=== PATIENT | female | born 1945 | race Caucasian/White ===

== ENCOUNTER → 2017-10-08 09:57 | Outpatient (CLI) | payer MEDICARE, SELFPAY ==
[2017-10-08 12:09] LABS: PTHIN 145.7 pg/mL (18.4-80.1); Vitamin D,25 Hydroxy 29.9 ng/mL (29.95-100.01)
[2017-10-08 12:18] LABS: ALB/GLOB Ratio 1.1 RATIO (0.9-2.4); AST(SGOT) 17 U/L (15-37); Alanine Aminotransfer ALT/SGPT 30 U/L (13-56); Albumin, Serum 3.6 g/dL (3.2-5.0); Alkaline Phosphatase 75 U/L (45-117); Anion Gap 9 (5-15); BUN 15 mg/dL (7-18); BUN/Creat Ratio 19.2 RATIO (10-20); Calcium,Total 9.3 mg/dL (8.5-10.1); Chloride 107 mmol/L (98-107); Creatinine, Serum 0.78 mg/dL (0.55-1.02); EST Glomerular Filtration Rate 77 mL/min (>60); Est Glom Filt Rate - Afr Amer 93 mL/min (>60); Globulin 3.4 g/dL (2.2-4.2); Glucose 106 mg/dL (74-106); Potassium 3.3 mmol/L (3.5-5.1); Sodium Level 143 mmol/L (136-145); Thyroid Stim Hormone (TSH) 0.69 uIU/mL (0.358-3.74)
== END ==
PROVIDERS: Family Provider Internal Medicine; PCP Internal Medicine; Visit Provider Internal Medicine Endocrinology, Diabetes & Metabolism
DX: E21.0 Primary hyperparathyroidism (principal); E04.9 Nontoxic goiter, unspecified; E55.9 Vitamin D deficiency, unspecified
CPT/HCPCS: 36415; 80053; 82306; 83970; 84443

== ENCOUNTER → 2018-02-11 11:12 | Outpatient (CLI) | payer MEDICARE, SELFPAY ==
--- NOTE | 2018-02-11 11:16 | CT_ITS ---
STUDY: CT BRAIN WITHOUT CONTRAST REASON FOR EXAM: Female, 72 years old. Headache RADIATION DOSAGE (If Supplied By Facility): CTDIvol = ( 60.81 ) mGy, DLP = ( 1112.69 ) mGycm TECHNIQUE: Transaxial CT imaging of the brain was performed without administration of intravenous contrast material. Coronal and sagittal 2-D MPR Individualized dose optimization techniques were used for this CT. COMPARISON: CT head 12/08/2016. FINDINGS: Extracranial soft tissues including orbital contents exhibit no acute abnormality. Craniofacial osseous structures within the field of view exhibit no acute abnormality. Paranasal sinuses, mastoid air cells and middle ear cavities are clear. Mild symmetric expansion of lateral ventricles and extra axial spaces consistent with age-related atrophy. Minimal chronic low-density changes of the deep white matter consistent with chronic microvascular ischemic disease with a small sliding or prominent low density focus in the basal ganglia just anterior to the margin of the thalamus on the left, likely an old infarct. Normal pituitary, brainstem and cerebellum There is no acute intracranial bleed, mass or mass effect nor any specific evidence of acute territorial infarct. CT/Brain/Head without Contrast IMPRESSION: No acute intracranial process. Electronically Signed: David Bye, at 14:37 EDT Tel , Service support ,
--- NOTE | 2018-02-11 11:17 | RAD_ITS ---
STUDY: X-RAY - CERVICAL SPINE REASON FOR EXAM: Female, 72 years old. Neck pain following a fall. Worsening headaches. TECHNIQUE: 4 view(s) of the cervical spine were obtained. COMPARISON: None FINDINGS: Normal anterior atlantoaxial articulation. Normal odontoid process. Normal cervical lordosis. Marked degree of disc space narrowing and spondylosis at the C4-C5 level. Moderate degree of disc space narrowing at the C5-C6 and C6-C7 levels with spondylosis. Facet joint osteoarthritis. Normal visualized intervertebral neuroforamina. The soft tissue structures are unremarkable. RAD/Cerv Spine 2 or 3 Views IMPRESSION: Disc space narrowing with spondylosis as described. Electronically Signed: Kameron Hester MD at 15:10 EDT Tel [phone], Service support ,
== END ==
PROVIDERS: Family Provider Internal Medicine; PCP Internal Medicine; Visit Provider Internal Medicine
DX: M54.2 Cervicalgia (principal); R51 Headache
CPT/HCPCS: 70450; 72040

== ENCOUNTER → 2018-09-07 | Outpatient (CLI) | payer MEDICARE, SELFPAY ==
[2018-09-07 12:56] LABS: ALB/GLOB Ratio 1.1 RATIO (0.9-2.4); AST(SGOT) 18 U/L (15-37); Alanine Aminotransfer ALT/SGPT 26 U/L (13-56); Albumin, Serum 3.9 g/dL (3.2-5.0); Alkaline Phosphatase 68 U/L (45-117); Anion Gap 6 (5-15); BUN 17 mg/dL (7-18); BUN/Creat Ratio 18.8 RATIO (10-20); Calcium,Total 9.9 mg/dL (8.5-10.1); Chloride 104 mmol/L (98-107); EST Glomerular Filtration Rate 65 mL/min (>60); Est Glom Filt Rate - Afr Amer 78 mL/min (>60); Globulin 3.6 g/dL (2.2-4.2); Glucose 89 mg/dL (74-106); Magnesium 2.2 mg/dL (1.6-2.6); Protein, Total 7.5 g/dL (6.4-8.2); Sodium Level 139 mmol/L (136-145)
[2018-09-07 13:03] LABS: PTHIN 191.9 pg/mL (18.4-80.1); Vitamin D,25 Hydroxy 46.3 ng/mL (29.95-100.01)
== END | disposition home or self-care (01) ==
LOC: LAB 11:30
PROVIDERS: Family Provider Internal Medicine; PCP Internal Medicine; Referring Provider Internal Medicine Endocrinology, Diabetes & Metabolism; Visit Provider Internal Medicine Endocrinology, Diabetes & Metabolism
DX: E21.0 Primary hyperparathyroidism (principal); M81.0 Age-related osteoporosis without current pathological fracture; E55.9 Vitamin D deficiency, unspecified; E83.42 Hypomagnesemia
CPT/HCPCS: 36415; 80053; 82306; 83735; 83970

== ENCOUNTER → 2018-09-28 | Outpatient (CLI) | payer MEDICARE, SELFPAY ==
[2018-09-28 12:39] LABS: Anion Gap 5 (5-15); BUN 14 mg/dL (7-18); BUN/Creat Ratio 14.3 RATIO (10-20); Calcium,Total 10.4 mg/dL (8.5-10.1); Chloride 104 mmol/L (98-107); Creatinine, Serum 0.98 mg/dL (0.55-1.02); EST Glomerular Filtration Rate 59 mL/min (>60); Est Glom Filt Rate - Afr Amer 71 mL/min (>60); Glucose 113 mg/dL (74-106); Sodium Level 139 mmol/L (136-145)
== END | disposition home or self-care (01) ==
PROVIDERS: Family Provider Internal Medicine; PCP Internal Medicine; Referring Provider Internal Medicine Endocrinology, Diabetes & Metabolism; Visit Provider Internal Medicine Endocrinology, Diabetes & Metabolism
DX: M81.0 Age-related osteoporosis without current pathological fracture (principal)
CPT/HCPCS: 36415; 80048

== ENCOUNTER → 2018-11-18 | Outpatient (CLI) | payer MEDICARE, SELFPAY ==
[2018-11-18 11:43] LABS: AST(SGOT) 15 U/L (15-37); Alanine Aminotransfer ALT/SGPT 29 U/L (13-56); Albumin, Serum 3.3 g/dL (3.2-5.0); Alkaline Phosphatase 66 U/L (45-117); Anion Gap 7 (5-15); BUN 15 mg/dL (7-18); Calcium,Total 9.7 mg/dL (8.5-10.1); Chloride 106 mmol/L (98-107); EST Glomerular Filtration Rate 58 mL/min (>60); Est Glom Filt Rate - Afr Amer 70 mL/min (>60); Globulin 3.4 g/dL (2.2-4.2); Glucose 127 mg/dL (74-106); Protein, Total 6.7 g/dL (6.4-8.2); Sodium Level 141 mmol/L (136-145)
[2018-11-18 11:51] LABS: Vitamin D,25 Hydroxy 51.7 ng/mL (29.95-100.01)
[2018-11-18 11:55] LABS: PTHIN 193.8 pg/mL (18.4-80.1)
== END | disposition home or self-care (01) ==
LOC: LAB 10:51
PROVIDERS: Family Provider Internal Medicine; PCP Internal Medicine; Referring Provider Internal Medicine Endocrinology, Diabetes & Metabolism; Visit Provider Internal Medicine Endocrinology, Diabetes & Metabolism
DX: E21.0 Primary hyperparathyroidism (principal); E55.9 Vitamin D deficiency, unspecified
CPT/HCPCS: 36415; 80053; 82306; 83970

== ENCOUNTER → 2018-11-29 | Outpatient (CLI) | payer MEDICARE, SELFPAY ==
--- NOTE | 2018-11-29 16:06 | RAD_ITS ---
STUDY: X-RAY CHEST REASON FOR EXAM: Female, 73 years old. Cough TECHNIQUE: PA and lateral chest COMPARISON: CT chest 01/24/2014 FINDINGS: There is significant opacity and consolidation within the lingula best seen on the lateral view.. There is no demonstrated pleural abnormality. There is significant generalized osteopenia. Normal size heart. Normal mediastinum and markus. Normal visualized pulmonary arteries. Normal visualized aortic arch and descending thoracic aorta. Normal visualized thoracic spine. Normal visualized ribs, clavicles, and shoulders. There is no demonstrated abnormality of the visualized soft tissue structures of the upper abdomen. RAD/Chest PA and Lateral IMPRESSION: Significant opacity and consolidation within the lingula, pneumonia, follow-up until clear recommended if this does not clear CT chest follow-up would be recommended to exclude underlying postobstructive lesion Electronically Signed: Jorgito Blas, at 16:49 EDT Tel , Service support ,
== END | disposition home or self-care (01) ==
LOC: MTRAD 16:03
PROVIDERS: Family Provider Internal Medicine; PCP Internal Medicine; Referring Provider Nurse Practitioner; Visit Provider Nurse Practitioner
DX: R05 Cough (principal)
CPT/HCPCS: 71046

== ENCOUNTER → 2018-12-07 | Outpatient (CLI) | payer MEDICARE, SELFPAY ==
--- NOTE | 2018-12-07 15:28 | CT_ITS ---
STUDY: CT CHEST WITH CONTRAST REASON FOR EXAM: Female, 73 years old. Pneumonia and abnormal chest x-ray RADIATION DOSAGE (If Supplied By Facility): CTDIvol = ( 8.00 ) mGy, DLP = ( 285.62 ) mGycm TECHNIQUE: Transaxial imaging was performed following intravenous administration of 100ml IV Isovue 300. Individualized dose optimization techniques were used for this CT. COMPARISON 01/17/1714 CT, chest x-ray November 29, 2018 FINDINGS: Interval development of a 15 x 13 mm nodule in the upper mediastinum, likely arising from the left lower lobe of the thyroid gland, seen on image 21 of series 2. Terminal alveolar nodularity in the posterior right upper lobe and right lower lobe suggests bronchiolitis. Lingular atelectasis. Stable 4 mm nodule in the left lower lobe on image 73 of series 4, considered benign. There is no demonstrated pleural abnormality. Focal rounded alveolar disease in the left lower lobe measuring 14 x 12 mm on image 66 of series 4. This most likely represents focal pneumonia. Three-month follow-up chest CT is recommended to ensure resolution, however. Small pericardial effusion measuring 6 mm in depth. Normal mediastinum. Normal hilar regions. Normal enhanced pulmonary arteries. Normal aorta arch and descending thoracic aorta. There are multi-level degenerative changes of the thoracic spine. Subcentimeter hepatic cyst. Left-sided peripelvic renal cysts. Cholelithiasis. CT/Chest WITH Contrast IMPRESSION: Right upper and lower lobe bronchiolitis. Stable benign nodule in the left lower lobe. Focal rounded alveolar disease in the left lower lobe, likely representing focal pneumonia. However, three-month follow-up chest CT is recommended to ensure resolution. Interval development of a 15 x 13 mm nodule in the upper mediastinum, likely arising from the left lower lobe of the thyroid gland. Small pericardial effusion. Cholelithiasis. Electronically Signed: Mat Wagoner MD at 16:15 EDT Tel , Service support ,
== END | disposition home or self-care (01) ==
PROVIDERS: Family Provider Internal Medicine; PCP Internal Medicine; Referring Provider Internal Medicine; Visit Provider Internal Medicine
DX: R93.89 Abnormal findings on diagnostic imaging of other specified body structures (principal)
CPT/HCPCS: 71260; Q9967

== ENCOUNTER → 2018-12-23 | Outpatient (CLI) | payer MEDICARE, SELFPAY | END | disposition home or self-care (01) | LOC: LAB 10:11 → LABSPEC 10:15 | PROVIDERS: Family Provider Internal Medicine; PCP Internal Medicine; Referring Provider Internal Medicine Pulmonary Disease; Visit Provider Internal Medicine Pulmonary Disease | DX: J18.9 Pneumonia, unspecified organism (principal); J45.909 Unspecified asthma, uncomplicated | CPT/HCPCS: 87015; 87116; 87206 ==

== ENCOUNTER → 2019-01-09 14:10 | Outpatient (CLI) | payer MEDICARE, SELFPAY ==
[2019-01-09 16:11] LABS: Absolute Lymphocyte Count 1.68 X10^3/uL (0.83-4.51); Absolute Neutrophil Count 3.9 X10^3/uL (2.0-7.7); Basophil# 0.03 X10^3/uL; Basophil% 0.5 % (0-1); Eosinophil# 0.07 X10^3/uL; Eosinophils% 1.1 % (0-5); Hematocrit 36.6 % (37-47); Hemoglobin 11.7 g/dL (12.0-15.0); Lymphocyte # 1.68 X10^3/ul (4.0); Lymphocyte % 27.1 % (19-41); Mean Corpuscular Hgb 31.4 pg (27.0-32.0); Mean Corpuscular Volume 98.1 fL (81-99); Monocyte# 0.47 X10^3/uL; Monocyte% 7.6 % (0-10); NRBC Flagged by Analyzer 0 % (0-5); Neutrophil # 3.93 X10^3/uL (2.7-7.7); Neutrophil % 63.4 % (47-70); Platelet Count 222 K/mm3 (150-450); RBC Distribution Width CV 13.9 % (11.6-14.6); RBC Distribution Width SD 50.2 fl (35.1-43.9); Red Blood Count 3.73 M/mm3 (4.2-5.4); White Blood Count 6.2 K/mm3 (4.4-11.0)
[2019-01-09 16:32] LABS: Rheumatoid Factor < 10.0 IU/mL (<15)
[2019-01-11 15:03] LABS: ANTINUCLEAR ANTIBODIES DIRECT Positive (Negative)
[2019-01-13 12:44] LABS: Angiotensin Convert Enzyme 51; URINE HISTOPLASMA ANTIGEN <0.5
== END ==
PROVIDERS: Family Provider Internal Medicine; PCP Internal Medicine; Referring Provider Internal Medicine Pulmonary Disease; Visit Provider Internal Medicine Pulmonary Disease
DX: J18.9 Pneumonia, unspecified organism (principal); J45.909 Unspecified asthma, uncomplicated
CPT/HCPCS: 36415; 82164; 85025; 86038; 86431; 87385

== ENCOUNTER → 2019-01-18 | Outpatient (CLI) | payer MEDICARE, SELFPAY ==
--- NOTE | 2019-01-18 10:38 | RAD_ITS ---
STUDY: X-RAY CHEST REASON FOR EXAM: Female, 73 years old. Pneumonia, shortness of breath TECHNIQUE: PA and lateral views of the chest. COMPARISON: 11/29/2018 FINDINGS: The lungs are clear and expanded. There is no demonstrated pleural abnormality. Normal size heart. Normal mediastinum and markus. Normal visualized pulmonary arteries. Normal visualized aortic arch and descending thoracic aorta. Normal visualized thoracic spine. Normal visualized ribs, clavicles, and shoulders. There is no demonstrated abnormality of the visualized soft tissue structures of the upper abdomen. RAD/Chest PA and Lateral IMPRESSION: Normal x-ray examination of the chest. Electronically Signed: Charly Samson, at 12:13 EDT Tel , Service support ,
[2019-01-18 11:32] LABS: Erythrocyte Sedimentation Rate 1 mm/hr (0-30)
[2019-01-20 13:31] LABS: Anti-dsDNA Ab 1 IU/mL (0-9)
== END | disposition home or self-care (01) ==
PROVIDERS: Family Provider Internal Medicine; PCP Internal Medicine; Referring Provider Internal Medicine Pulmonary Disease; Visit Provider Internal Medicine Pulmonary Disease
DX: J18.9 Pneumonia, unspecified organism (principal); J45.909 Unspecified asthma, uncomplicated; G47.10 Hypersomnia, unspecified
CPT/HCPCS: 36415; 71046; 85652; 86225

== ENCOUNTER → 2019-01-25 | Outpatient (CLI) | payer MEDICARE, SELFPAY ==
[2019-01-25 12:05] LABS: Anion Gap 3 (5-15); BUN 17 mg/dL (7-18); BUN/Creat Ratio 18.1 RATIO (10-20); Calcium,Total 10.1 mg/dL (8.5-10.1); Chloride 109 mmol/L (98-107); Creatinine, Serum 0.94 mg/dL (0.55-1.02); EST Glomerular Filtration Rate 62 mL/min (>60); Est Glom Filt Rate - Afr Amer 75 mL/min (>60); Glucose 102 mg/dL (74-106); Potassium 3.9 mmol/L (3.5-5.1); Sodium Level 141 mmol/L (136-145)
[2019-01-25 12:15] LABS: PTHIN 167.8 pg/mL (18.4-80.1); Vitamin D,25 Hydroxy 49.4 ng/mL (29.95-100.01)
== END | disposition home or self-care (01) ==
LOC: LAB 11:12
PROVIDERS: Family Provider Internal Medicine; PCP Internal Medicine; Referring Provider Internal Medicine Endocrinology, Diabetes & Metabolism; Visit Provider Internal Medicine Endocrinology, Diabetes & Metabolism
DX: E55.9 Vitamin D deficiency, unspecified (principal); E21.0 Primary hyperparathyroidism
CPT/HCPCS: 36415; 80048; 82306; 83970

== ENCOUNTER → 2019-04-12 | Outpatient (CLI) | payer MEDICARE, SELFPAY ==
--- NOTE | 2019-04-12 14:55 | RAD_ITS ---
STUDY: X-RAY - LUMBAR SPINE REASON FOR EXAM: Female, 74 years old. Right-sided, low back pain. TECHNIQUE: 3 view(s) of the lumbar spine were obtained. COMPARISON: None FINDINGS: Normal lumbar lordosis. There is minimal scoliosis, convexity to the left. There is a normal alignment of the vertebrae. There is diffuse demineralization with multi-level endplate spondylosis. There is mild, multi-level degenerative disc disease with multi-level disc space narrowing. There is no demonstrated fracture. There is atherosclerotic calcification of the abdominal aorta without a demonstrated aneurysm. RAD/Lumbar Spine 2 or 3 Views IMPRESSION: Diffuse osteopenia along with mild multilevel spondylosis/degenerative disease. No spondylolisthesis or acute fracture. Electronically Signed: Marielle Willis MD at 1:42 EST , Service support ,
== END | disposition home or self-care (01) ==
LOC: HPRAD 14:52
PROVIDERS: Family Provider Internal Medicine; PCP Internal Medicine; Referring Provider Internal Medicine; Visit Provider Internal Medicine
DX: M54.5 Low back pain (principal)
CPT/HCPCS: 72100

== ENCOUNTER → 2019-11-02 12:06 | Outpatient (CLI) | payer MEDICARE, SELFPAY ==
--- NOTE | 2019-11-02 12:12 | BD_ITS ---
STUDY: DUAL ENERGY X-RAY ABSORPTIOMETRY / DXA REASON FOR EXAM: Female, 74 years old. [employer]- EARLY AT 37 YRS OLD -- HX OF HRT -- HX OF SMOKING -- TAKES SYNTHROID -- TAKES CALCIUM AND VITAMIN D -- HX OF TAKING PROLIA -- DOES LITTLE EXERCISE -- HX OF ANKLE FX AND WRIST FX -- KAITLIN OF 2 INCHES TECHNIQUE: Bone Mineral Density (BMD) measurements of lumbar spine and bilateral hips were obtained. COMPARISON: Comparison is made with prior examination dated May 21, 2016. FINDINGS: Lumbar Spine (L1-L4): g/cm2 (0.902) / T-score (-2.5) / Z-score (-0.7) Findings are suggestive of osteoporosis with a high fracture risk. Left Femur Total: g/cm2 (0.758) / T-score (-2.0) / Z-score (-0.2) Left Femoral Neck: g/cm2 (0.766) / T-score (-2.0) / Z-score (0.0) Right Femur Total: g/cm2 (0.776) / T-score (-1.8) / Z-score (-0.1) Right Femoral Neck: g/cm2 (0.743) / T-score (-2.1) / Z-score (-0.2) The T-Scores on the most recent prior examination were: Lumbar Spine (L1-L4): There has been worsening of bone density since the previous examination. Left Femur Total: which represents a worsening of 7.3%. Right Femur Total: which represents a worsening of 6.6%. BD/Dexa Bone Density Study IMPRESSION: The patient is considered osteoporotic as outlined below according to World [employer] Organization (WHO) criteria with a high fracture risk. There has been worsening of bone density since the previous examination. Reference Information: The T-score is the number of standard deviations above or below the standard which is normal for young adults at their peak bone mineral density. The World Health Organization (WHO) interprets the T-scores as follows: Above -1 Normal bone density Between -1 and -2.5 Osteopenia Equal to / or below -2.5 Osteoporosis As a practical clinical guideline, osteopenia may be graded as follows: Mild -1 through -1.5 Moderate -1.6 through -2.0 Severe -2.1 through -2.4 The Z-score is the number of standard deviations above or below age-matched controls. A Z-score of less than -1.5 would be considered abnormal. References: 1. NIH Osteoporosis and Related Bone Diseases http://www.osteo.org 2. International Society for Clinical Densitometry http://www.iscd.org 3. National Osteoporosis Foundation http://www.nof.org Electronically Signed: Kameron Hester, at 14:31 EDT , Service support ,
== END ==
PROVIDERS: PCP Internal Medicine; Referring Provider Internal Medicine; Visit Provider Internal Medicine
DX: Z78.0 Asymptomatic menopausal state (principal)
CPT/HCPCS: 77080

== ENCOUNTER → 2020-07-02 11:29 | Outpatient (CLI) | payer MEDICARE, SELFPAY ==
[2020-07-02 13:17] LABS: PTHIN 170.7 pg/mL (18.4-80.1)
[2020-07-02 13:20] LABS: Vitamin D,25 Hydroxy 40.6 ng/mL
[2020-07-02 13:28] LABS: ALB/GLOB Ratio 1.1 RATIO (0.9-2.4); AST(SGOT) 19 U/L (15-37); Alanine Aminotransfer ALT/SGPT 34 U/L (13-56); Albumin, Serum 3.6 g/dL (3.2-5.0); Alkaline Phosphatase 47 U/L (45-117); Anion Gap 6 (5-15); BUN 17 mg/dL (7-18); BUN/Creat Ratio 18.7 RATIO (10-20); Calcium,Total 9.7 mg/dL (8.5-10.1); Chloride 107 mmol/L (98-107); Creatinine, Serum 0.91 mg/dL (0.55-1.02); EST Glomerular Filtration Rate 64 mL/min (>60); Est Glom Filt Rate - Afr Amer 77 mL/min (>60); Globulin 3.3 g/dL (2.2-4.2); Glucose 97 mg/dL (74-106); Magnesium 2.1 mg/dL (1.6-2.6); Protein, Total 6.9 g/dL (6.4-8.2); Sodium Level 140 mmol/L (136-145)
== END ==
PROVIDERS: PCP Internal Medicine; Referring Provider Internal Medicine Endocrinology, Diabetes & Metabolism; Visit Provider Internal Medicine Endocrinology, Diabetes & Metabolism
DX: E21.0 Primary hyperparathyroidism (principal); E55.9 Vitamin D deficiency, unspecified
CPT/HCPCS: 36415; 80053; 82306; 83735; 83970

== ENCOUNTER 2020-08-06 03:14 | Outpatient (RCR) | payer MEDICARE, SELFPAY ==
[2020-08-06] MEDS: COVID-19 VACC, MRNA(PFIZER)/PF 30 MCG/0.3 ML SYRINGE IM (18:31)
[2020-08-27] MEDS: COVID-19 VACC, MRNA(PFIZER)/PF 30 MCG/0.3 ML SYRINGE IM (18:00)
== END 2020-11-05 23:59 ==
LOC: IMMUN 03:14
PROVIDERS: PCP Internal Medicine; Visit Provider Family Medicine
DX: Z23 Encounter for immunization (principal)
CPT/HCPCS: 0001A; 0002A; 91300

== ENCOUNTER 2021-06-09 15:17 | Emergency (ER) | payer MEDICARE, SELFPAY ==
[2021-06-09 15:17] VITALS: BP 123/60; PULSE 75; RESP 18; TEMP 35.9; O2SAT 95; BMI 24.5
--- NOTE | 2021-06-09 16:45 | EKG12_ITS ---
Test Reason : SOB Blood Pressure : / mmHG Vent. Rate : 066 BPM Atrial Rate : 066 BPM P-R Int : 172 ms QRS Dur : 072 ms QT Int : 398 ms P-R-T Axes : 049 056 034 degrees QTc Int : 417 ms Normal sinus rhythm with sinus arrhythmia Normal ECG Confirmed by STEFANI TOVAR, JAZZY ([id number]), commissioning editor JONATAN DIALLO ([id number]) on 06/10/2021 2:22:21 PM Referred By: PEGGY/CHUCK Confirmed By:JAZZY KO MD
--- NOTE | 2021-06-09 16:47 | ED.VIS.DYS ---
HPI History of Present Illness Chief Complaint: Shortness of Breath Narrative Narrative: Patient presents from urgent care with reported low pulse ox. She states that she has been short of breath, fatigued, and lost her sense of taste and smell on 25 May is when her symptoms may have started. She feels short of breath and has an occasional cough. She is very fatigued. She states she was tested negative on 26 May. Her symptoms have been ongoing for over 2 weeks. She has past medical history of COPD. She states she went to urgent care today and her pulse ox read 89%. She has not been a smoker in over 27 years. She states that her friend with whom she lives is getting over the flu. She has COVID-19 concerns although she has been fully immunized with booster. She presents because of the reported hypoxia and shortness of breath with fatigue. She denies having fever or sore throat. [facility] Medical History (Updated 06/09/21 @ 21:24 by Chip Arreaga MD) COPD (chronic obstructive pulmonary disease) HTN (hypertension) Home Medications atorvastatin 20 mg PO QHS 12/08/16 [History Last Taken Unknown] budesonide-formoterol [Symbicort] 2 puff INHALATION BID 12/08/16 [History Last Taken Unknown] levothyroxine 75 mcg PO DAILY 12/08/16 [History Last Taken Unknown] sertraline 50 mg PO DAILY 12/08/16 [History Last Taken Unknown] albuterol sulfate 2 puff INHALATION Q4H PRN PRN 06/09/21 [History Last Taken Unknown] alendronate 70 mg PO QWEEK 06/09/21 [History Last Taken Unknown] apixaban [Eliquis DVT-PE Treat 30D Start] 5 mg PO BID #74 tab 06/09/21 [Rx Last Taken Unknown] azithromycin 250 mg BID 06/09/21 [History Last Taken Unknown] hydrochlorothiazide 25 mg DAILY 06/09/21 [History Last Taken Unknown] losartan 50 mg DAILY 06/09/21 [History Last Taken Unknown] Allergy/AdvReac Type Severity Reaction Status Date / Time codeine Allergy Angioedema Verified 06/09/21 15:20 Penicillins [PCN] Allergy Rash Verified 06/09/21 15:20 Sulfa (Sulfonamide AdvReac Unknown Verified 06/09/21 15:20 Antibiotics) Social History Smoking Status: Former smoker ROS ROS ED ROS Narrative Constitutional: No fever, no chills. Positive malaise and fatigue. HEENT: No sore throat. No neck pain. No loss of vision. No rhinorrhea. Reported loss of taste and smell. Cardiovascular: No chest pain. No palpitations. No pedal edema. Respiratory: Positive cough, positive shortness of breath. Abdominal: No abdominal pain. No nausea. No vomiting. Genitourinary: No dysuria. No hematuria. Musculoskeletal: No myalgias. No arthralgias. Neurologic: No headaches. No dizziness. No lightheadedness. Generalized weakness. Skin: No rash. No change in color. Psychiatric: No depression. No anxiety. EXAM Physical Exam Narrative Exam Narrative: Afebrile. Vital signs noted. HEENT: Normocephalic. Atraumatic. PERRL, EOMI. Neck soft and supple. No point tenderness or step off. Cardiovascular: Regular rate and rhythm. No murmurs, rubs, or gallops appreciated. Respiratory: No tachypnea. Lungs clear to auscultation bilaterally except occasional rhonchi heard in bilateral bases. Gastrointestinal: Abdomen soft, nontender, with normoactive bowel sounds. No rebound or guarding. Neurological: Awake. Alert. Nonfocal, nonlateralizing. Skin: No rash. Normal color. No pallor. Musculoskeletal: No pedal edema. Full range of motion extremities. Const Vital Signs: 06/09/21 15:17 06/09/21 16:56 06/09/21 16:59 Temperature 96.7 F L 97.2 F L Temperature Source Temporal Temporal Pulse Rate 75 69 Respiratory Rate 18 18 Respiratory Effort Normal Short of Breath Respiratory Depth Normal Respiratory Pattern Normal Blood Pressure 123/60 H 123/60 H Blood Pressure Mean 81 81 Pulse Ox 95 97 Oxygen Delivery Method Room Air Room Air Room Air 06/09/21 17:00 06/09/21 18:00 Temperature 97.2 F L 97.7 F L Temperature Source Temporal Temporal Pulse Rate 72 70 Respiratory Rate 18 19 H Respiratory Effort Respiratory Depth Respiratory Pattern Blood Pressure 125/54 H 122/57 H Blood Pressure Mean 77 78 Pulse Ox 93 96 Oxygen Delivery Method Room Air Room Air MDM MDM MDM Narrative Medical decision making narrative: Patient's pulse ox is 95% on room air here in the emergency department. Comprehensive work-up was pursued. White count normal at 7.7, hemoglobin stable 11.2, platelet count normal at 228. Electrolyte panel is grossly unremarkable except creatinine 1.06. Troponin is negative at 7. EKG demonstrates normal sinus rhythm at 66 bpm with a sinus arrhythmia but no acute ST changes. Her pulse ox remains nonhypoxic. I did obtain a CTA of the chest which shows bilateral pulmonary emboli. Her COVID test is negative, but it is the rapid. She has had symptoms since 25 May. Regardless, she was evaluated by the hospitalist, Dr. Das. It was not felt that she required admission or oxygen at this time. Instead, she will be placed on Eliquis 5 mg twice daily. I did write her prescription for the next month as a starter pack, and she will follow-up with Dr. Joseph. She is to call the office tomorrow. I feel she be discharged safely home with follow-up. Return instructions were reviewed. She was told of the risk of intracranial hemorrhage and GI bleeding with the use of Eliquis. I do feel that the benefit outweighs the risk of these things happening to treat her bilateral pulmonary emboli. Once again, she is not hypoxic here in the emergency department. Disposition is discharged home in stable condition. Lab Data Attestation: I reviewed the patient's lab results. Labs: Laboratory Results - last 24 hr 06/09/21 06/09/21 16:50 16:50 WBC 7.7 RBC 3.54 L Hgb 11.2 L Hct 34.4 L MCV 97.2 MCH 31.6 MCHC 32.6 RDW Std Deviation 44.2 H RDW Coeff of Jeanna 12.5 Plt Count 228 MPV 9.5 Immature Gran % (Auto) 0.400 Neut % (Auto) 72.3 H Lymph % (Auto) 19.2 [place] % (Auto) 6.8 Eos % (Auto) 0.8 Baso % (Auto) 0.5 Absolute Neuts (auto) 5.6 Absolute Lymphs (auto) 1.48 Nucleated RBC % 0 Sodium 144 Potassium 3.5 Chloride 105 Carbon Dioxide 30.0 Anion Gap 9 BUN 17 Creatinine 1.06 H Estim Creat Clear Calc 41.61 Est GFR (MDRD) Af Amer 65 Est GFR (MDRD) Non-Af 53 L BUN/Creatinine Ratio 16.0 Glucose 119 H Calcium 11.0 H Troponin I High Sens 7 Radiography Diagnostic Testing: Clinical Impression(s) from Imaging Studies Chest X-Ray 06/09/21 17:40 IMPRESSION: Degenerative changes, as described above. No demonstrated acute cardiopulmonary process. Electronically Signed: Bautista Tate DO at 17:58 EST Tel [phone], Service support , Chest CTA 06/09/21 19:18 IMPRESSION: 1. Diffuse bilateral nonobstructive pulmonary emboli. 2. No aortic dissection or aneurysm. 3. No acute pulmonary disease. 4. Parapelvic cyst versus dilated collecting system of the bilateral kidneys. N.B. : The above Results were Read Back by Bautista Tate DO to Chip Arreaga MD, and understanding confirmed on 06/09/2021 20:04:36 (ET). Electronically Signed: Bautista Tate DO at 20:05 EST Tel [phone], Service support , ADDENDUM: 06/09/212011 IMPRESSION: 1. Diffuse bilateral nonobstructive pulmonary emboli. 2. No aortic dissection or aneurysm. 3. No acute pulmonary disease. 4. Parapelvic cyst versus dilated collecting system of the bilateral kidneys. N.B. : The above Results were Read Back by Bautista Tate DO to Chip Arreaga MD, and understanding confirmed on 06/09/2021 20:04:36 (ET). Electronically Signed: Bautista Tate DO at 20:05 EST Tel [phone], Service support , Discharge Plan Triage Chief Complaint: Shortness of Breath ED Provider: Chip Arreaga Dx/Rx/DC Orders Clinical Impression: Bilateral pulmonary embolism Instructions: Embolism Pulmonary Dc Prescriptions: New Eliquis DVT-PE Treat 30D Start 5 mg (74 tabs) tablets,dose pack 5 mg PO BID Qty: 74 RF: 0 No Action atorvastatin 20 MG tablet 20 mg PO QHS RF: 0 levothyroxine 75 MCG tablet 75 mcg PO DAILY RF: 0 sertraline 50 MG tablet 50 mg PO DAILY RF: 0 budesonide-formoterol [Symbicort] 1 INHALER inhaler 2 puff inhalation BID RF: 0 losartan 50 mg tablet 50 mg DAILY RF: 0 azithromycin 250 mg tablet 250 mg BID RF: 0 alendronate 70 mg tablet 70 mg PO QWEEK RF: 0 hydrochlorothiazide 25 mg tablet 25 mg DAILY RF: 0 albuterol sulfate 90 mcg/actuation HFA aerosol inhaler 2 puff INHALATION Q4H PRN PRN (Reason: Shortness Of Breath) RF: 0 Primary Care Provider: Jessica Lew Referrals: Jessica Lew DO [Primary Care Provider] - 06/10/21 Disposition Disposition: Home, Self Care
[2021-06-09 16:56] VITALS: BP 123/60; PULSE 69; RESP 18; TEMP 36.2; O2SAT 97
[2021-06-09 16:59] VITALS: O2SAT 97
[2021-06-09 17:00] VITALS: BP 125/54; PULSE 72; PULSE 78; RESP 18; TEMP 36.2; O2SAT 93
[2021-06-09] MEDS: Ipratropium/Albuterol Sulfate 3 ML AMPUL.NEB INHALATION (17:00)
[2021-06-09 17:06] LABS: Absolute Lymphocyte Count 1.48 X10^3/uL (0.83-4.51); Absolute Neutrophil Count 5.6 X10^3/uL (2.0-7.7); Basophil# 0.04 X10^3/uL; Basophil% 0.5 % (0-1); Eosinophil# 0.06 X10^3/uL; Eosinophils% 0.8 % (0-5); Hematocrit 34.4 % (37-47); Hemoglobin 11.2 g/dL (12.0-15.0); Lymphocyte # 1.48 X10^3/ul (0.83-4.51); Lymphocyte % 19.2 % (19-41); Mean Corp Hgb Conc 32.6 g/dL (32-36); Mean Corpuscular Hgb 31.6 pg (27.0-32.0); Mean Corpuscular Volume 97.2 fL (81-99); Mean Platelet Vol. 9.5 fl (6.2-12.0); Monocyte# 0.52 X10^3/uL; Monocyte% 6.8 % (0-10); NRBC Flagged by Analyzer 0 % (0-5); Neutrophil # 5.56 X10^3/uL (2.7-7.7); Neutrophil % 72.3 % (47-70); Platelet Count 228 K/mm3 (150-450); RBC Distribution Width CV 12.5 % (11.6-14.6); RBC Distribution Width SD 44.2 fl (35.1-43.9); Red Blood Count 3.54 M/mm3 (4.2-5.4); White Blood Count 7.7 K/mm3 (4.4-11.0)
[2021-06-09 17:31] LABS: Anion Gap 9 (5-15); BUN 17 mg/dL (7-18); Chloride 105 mmol/L (98-107); Creatinine, Serum 1.06 mg/dL (0.55-1.02); EST Glomerular Filtration Rate 53 mL/min (>60); Est Glom Filt Rate - Afr Amer 65 mL/min (>60); Estimated Creatinine Clearance 41.61 ml/min; Glucose 119 mg/dL (74-106); Potassium 3.5 mmol/L (3.5-5.1); Sodium Level 144 mmol/L (136-145); Troponin-I HS 7 pg/mL (3.0-54.0)
--- NOTE | 2021-06-09 17:40 | RAD_ITS ---
STUDY: X-RAY CHEST REASON FOR EXAM: Female, 76 years old. Shortness of breath. Low pulse oximetry symptoms began on May 22. TECHNIQUE: Single AP portable view of the chest. COMPARISON: 01/18/2019. FINDINGS: There is a decreased inspiratory effort when compared to prior study. There is no new mass or infiltrate. There is no demonstrated pleural abnormality. Normal size heart. Normal mediastinum and markus. Normal visualized pulmonary arteries. Normal visualized aortic arch and descending thoracic aorta. There are diffuse degenerative changes of the visualized thoracic spine. There is degenerative osteoarthritis of the bilateral shoulders. There is no demonstrated abnormality of the visualized soft tissue structures of the upper abdomen. RAD/Chest 1 View (Portable) IMPRESSION: Degenerative changes, as described above. No demonstrated acute cardiopulmonary process. Electronically Signed: Bautista Tate DO at 17:58 EST Tel [phone], Service support ,
[2021-06-09 18:00] VITALS: BP 122/57; PULSE 70; RESP 19; TEMP 36.5; O2SAT 96
--- NOTE | 2021-06-09 19:18 | CT_ITS ---
STUDY: CTA CHEST REASON FOR EXAM: Female, 76 years old. Shortness of breath. Fatigue. Low oxygen saturation. Cough. RADIATION DOSAGE (If Supplied By Facility): CTDIvol = ( 9.07 ) mGy, DLP = ( 305.98 ) mGycm TECHNIQUE: The examination was performed with the intravenous administration of IV 100mL Isovue-370. Post-processing of the angiographic images was performed, with multiplanar reformation and 3D reconstruction. Individualized dose optimization techniques were used for this CT. COMPARISON: Chest, 06/09/2021. FINDINGS: Normal enhancement of the main pulmonary artery and right and left pulmonary arteries. There is nonocclusive thrombus in peripheral pulmonary arteries to the bilateral upper lobes and right middle lobe and bilateral lower lobe most marked on the left. Normal thoracic aorta and visualized great vessels. There is no demonstrated aortic dissection. Normal heart and pericardium. Normal mediastinum. Normal hilar regions. Normal visualized trachea and bronchi. The lungs are well expanded. Normal pulmonary parenchyma. Normal pleura. Normal chest wall structures. There are degenerative changes of thoracic spine. Parapelvic cysts versus dilated bilateral renal collecting systems. CT/CTA Chest W/WO Contrast IMPRESSION: 1. Diffuse bilateral nonobstructive pulmonary emboli. 2. No aortic dissection or aneurysm. 3. No acute pulmonary disease. 4. Parapelvic cyst versus dilated collecting system of the bilateral kidneys. N.B. : The above Results were Read Back by Bautista Tate DO to Chip Arreaga MD, and understanding confirmed on 06/09/2021 20:04:36 (ET). Electronically Signed: Bautista Tate DO at 20:05 EST Tel [phone], Service support ,
[2021-06-09 21:48] VITALS: BP 145/73; PULSE 77; RESP 20; O2SAT 95
[2021-06-09] MEDS: APIXABAN 5 MG TABLET PO (21:48)
== END 2021-06-09 21:54 | disposition home or self-care (01) ==
PROVIDERS: Emergency Provider Emergency Medicine; PCP Internal Medicine; Visit Provider Emergency Medicine
DX: I26.99 Other pulmonary embolism without acute cor pulmonale (principal); J44.9 Chronic obstructive pulmonary disease, unspecified; Z20.822 Contact with and (suspected) exposure to COVID-19; I10 Essential (primary) hypertension; Z87.891 Personal history of nicotine dependence; Z79.899 Other long term (current) drug therapy
CPT/HCPCS: 71045; 71275; 80048; 84484; 85025; 87426; 93005; 94640; 99284; Q9967; A4216

== ENCOUNTER 2021-07-01 13:58 | Outpatient (CLI) | payer MEDICARE, SELFPAY ==
--- NOTE | 2021-07-01 14:00 | VDLE_ITS ---
Reason For Study: edema RIGHT LEFT GSV is normal. GSV is normal. CFV is compressible, spontaneous, phasic, CFV is compressible, spontaneous, phasic, competent and demonstrates normal competent, and demonstrates normal augmentation. augmentation. FV is compressible, spontaneous, phasic, FV is compressible, spontaneous, phasic, competent and demonstrates normal competent and demonstrates normal augmentation. augmentation. POP V is compressible, spontaneous, phasic, POP V is compressible, spontaneous, phasic, competent and demonstrates normal competent and demonstrates normal augmentation. augmentation. T/P Trunk is compressible. T/P Trunk is compressible. PTV is compressible. PTV is compressible. RT PerV is compressible. LT PerV is compressible. Procedure This is a venous duplex using B-mode, color flow and spectral Doppler. Exam performed in department. The exam was diagnostic. A preliminary report was called and/or faxed to Dr. Ang. VL/Venous Duplex US - Terrence Extrem Interpretation Summary Deep veins of the lower extremities are bilaterally patent and compressible seg mentally. There is no evidence of deep vein thrombosis on either side. Valvular competence appears in tact within the proximal deep venous systems bilaterally. The great saphenous veins appear bila terally patent and compressible segmentally. Ordering Physician: Jorgito Ang Performed By: Albert Hopkins, RVT
== END 2021-07-01 23:59 | disposition short-term general hospital (02) ==
PROVIDERS: PCP Internal Medicine; Referring Provider Internal Medicine Pulmonary Disease; Visit Provider Internal Medicine Pulmonary Disease
DX: R60.0 Localized edema (principal)
CPT/HCPCS: 93970

== ENCOUNTER → 2021-11-13 | Outpatient (CLI) | payer OTHER, SELFPAY ==
[2021-11-13 10:13] LABS: Absolute Lymphocyte Count 1.81 X10^3/uL (0.83-4.51); Absolute Neutrophil Count 3.8 X10^3/uL (2.0-7.7); Basophil# 0.04 X10^3/uL; Basophil% 0.6 % (0-1); Eosinophil# 0.07 X10^3/uL; Eosinophils% 1.1 % (0-5); Hematocrit 37.3 % (37-47); Hemoglobin 12.1 g/dL (12.0-15.0); Lymphocyte # 1.81 X10^3/ul (0.83-4.51); Lymphocyte % 28.9 % (19-41); Mean Corp Hgb Conc 32.4 g/dL (32-36); Mean Corpuscular Volume 98.7 fL (81-99); Mean Platelet Vol. 9.5 fl (6.2-12.0); NRBC Flagged by Analyzer 0 % (0-5); Neutrophil # 3.83 X10^3/uL (2.7-7.7); Neutrophil % 61.2 % (47-70); Platelet Count 226 K/mm3 (150-450); RBC Distribution Width CV 12.3 % (11.6-14.6); RBC Distribution Width SD 44.5 fl (35.1-43.9); Red Blood Count 3.78 M/mm3 (4.2-5.4); White Blood Count 6.3 K/mm3 (4.4-11.0)
[2021-11-13 10:35] LABS: Hemoglobin A1c 5.9 % (3.8-5.6)
[2021-11-13 10:37] LABS: Microalbumin,Random Urine 15.9 mg/L (NO RANGE EST.); Microalbumin:Creatinine Ratio 22.8 mg/g CRE (<30 mg/g CRE)
[2021-11-13 10:40] LABS: Vitamin B12 1083 pg/mL (211-911); Vitamin D,25 Hydroxy 67.5 ng/mL
[2021-11-13 10:49] LABS: ALB/GLOB Ratio 1.1 RATIO (0.9-2.4); AST(SGOT) 17 U/L (15-37); Alanine Aminotransfer ALT/SGPT 34 U/L (13-56); Albumin, Serum 3.6 g/dL (3.2-5.0); Alkaline Phosphatase 44 U/L (45-117); Anion Gap 3 (5-15); BUN 17 mg/dL (7-18); BUN/Creat Ratio 16.7 RATIO (10-20); Calcium,Total 10.4 mg/dL (8.5-10.1); Chloride 108 mmol/L (98-107); Cholesterol 173 mg/dL (200); Creatinine, Serum 1.02 mg/dL (0.55-1.02); EST Glomerular Filtration Rate 56 mL/min (>60); Est Glom Filt Rate - Afr Amer 68 mL/min (>60); Globulin 3.3 g/dL (2.2-4.2); Glucose 112 mg/dL (74-106); High Density Lipoprotein 86 mg/dL; Potassium 4.1 mmol/L (3.5-5.1); Protein, Total 6.9 g/dL (6.4-8.2); Sodium Level 140 mmol/L (136-145); Triglycerides 93 mg/dL; Very Low Density Lipoprotein 19 mg/dL (5-40)
== END | disposition home or self-care (01) ==
LOC: LAB 09:26
PROVIDERS: PCP Internal Medicine; Visit Provider Internal Medicine
DX: E03.9 Hypothyroidism, unspecified (principal); E11.9 Type 2 diabetes mellitus without complications; E78.00 Pure hypercholesterolemia, unspecified; E55.9 Vitamin D deficiency, unspecified; E53.8 Deficiency of other specified B group vitamins
CPT/HCPCS: 36415; 80053; 80061; 82043; 82306; 82570; 82607; 83036; 84443; 85025

== ENCOUNTER → 2021-12-17 | Outpatient (CLI) | payer MEDICARE, SELFPAY ==
[2021-12-17 15:07] LABS: PTHIN 197.5 pg/mL (18.4-80.1)
[2021-12-17 15:11] LABS: Anion Gap 6 (5-15); BUN 17 mg/dL (7-18); BUN/Creat Ratio 15.2 RATIO (10-20); Calcium,Total 10.4 mg/dL (8.5-10.1); Chloride 101 mmol/L (98-107); Creatinine, Serum 1.12 mg/dL (0.55-1.02); EST Glomerular Filtration Rate 50 mL/min (>60); Est Glom Filt Rate - Afr Amer 61 mL/min (>60); Glucose 152 mg/dL (74-106); Sodium Level 136 mmol/L (136-145); Thyroid Stim Hormone (TSH) 0.24 uIU/mL (0.358-3.74)
== END | disposition home or self-care (01) ==
PROVIDERS: PCP Internal Medicine; Referring Provider Internal Medicine Endocrinology, Diabetes & Metabolism; Visit Provider Internal Medicine Endocrinology, Diabetes & Metabolism
DX: E03.8 Other specified hypothyroidism (principal)
CPT/HCPCS: 36415; 80048; 83970; 84443

== ENCOUNTER 2021-12-26 16:59 | Emergency (ER) | payer MEDICARE, SELFPAY ==
[2021-12-26 17:01] VITALS: BP 142/74; PULSE 84; RESP 16; TEMP 37.2; O2SAT 99; BMI 24.0
--- NOTE | 2021-12-26 17:27 | CT_ITS ---
STUDY: CT ABDOMEN AND PELVIS WITH CONTRAST REASON FOR EXAM: Female, 76 years old. Nausea, vomiting and diarrhea. RADIATION DOSAGE (If Supplied By Facility): CTDIvol = ( 9.60 ) mGy, DLP = ( 443.19 ) mGycm TECHNIQUE: Transaxial images were obtained from the dome of the diaphragm to the symphysis pubis without oral contrast. IV 100mL Isovue-300 was administered. Sagittal and coronal images were reconstructed. Individualized dose optimization techniques were used for this CT. COMPARISON: 12/14/2016. FINDINGS: Dependent changes at the lung bases. The visualized portions of the heart are within normal limits. Vague cystic change seen in segment 4A of the liver just above the gallbladder fossa. A gallstone is seen within the gallbladder without filling defect. No biliary ductal dilatation. Normal spleen. Normal pancreas. Normal bilateral adrenal glands. Normal right kidney. Normal right ureter. The left kidney is enlarged. There is fluid density centrally thought to be parapelvic cyst. The left ureter is unremarkable. Normal visualized stomach. Normal small intestine. Normal colon. There is non-visualization of the appendix. There is diffuse atherosclerotic calcification of the abdominal aorta, without a demonstrated aneurysm. Normal inferior vena cava. Normal retroperitoneum. Normal urinary bladder. Unremarkable vaginal cuff. No pelvic lymphadenopathy. No free air or free fluid is seen within the peritoneal cavity. Normal abdominal wall. There are diffuse degenerative changes of the visualized lumbar spine. CT/Abdomen/Pelvis W IV Cont ONLY IMPRESSION: 1. Stable gallstone without acute cholecystitis. 2. Stable hepatic cyst. 3. Stable left parapelvic renal cyst. 4. Interval hysterectomy. No evidence of acute intra-abdominal process or other major interval change. Electronically Signed: Bautista Tate DO at 19:22 EDT Reading Location ID and State: [address] [place] [address] Tel [phone], Service support ,
--- NOTE | 2021-12-26 17:28 | EDS_ITS ---
HPI HPI - GI History of Present Illness Chief Complaint: Nausea/Vomiting Narrative Narrative: Patient with past medical history of hypertension presents with 10 days of nausea, vomiting, and diarrhea. She states her symptoms began approximately 10 days ago with diarrhea and loose stool. She denies any blood in her. She saw her primary care physician who told her that she probably had a virus, but she states that 10 days later, she still feels nausea and vomiting and generalized weakness and fatigue. She only vomited once in the last 24 hours without any blood in her emesis. She states she saw her primary care physician today for another reason but told her about the weakness and nausea and vomiting, and had a KUB performed which might of shown a kidney stone. She states she was sent to the ED to get it checked out. She denies any hematuria. No fevers or chills. No other symptoms. No exacerbating or alleviating factors. [facility] Medical History COPD (chronic obstructive pulmonary disease) HTN (hypertension) Home Medications atorvastatin 20 mg tablet 20 mg PO QHS 12/08/16 [History Last Taken Unknown] budesonide-formoterol HFA 160 mcg-4.5 mcg/actuation aerosol inhaler (Symbicort) 2 puff inhalation BID 12/08/16 [History Last Taken Unknown] levothyroxine 75 mcg tablet 75 mcg PO DAILY 12/08/16 [History Last Taken Unknown] sertraline 50 mg tablet 50 mg PO DAILY 12/08/16 [History Last Taken Unknown] albuterol sulfate 90 mcg/actuation aerosol inhaler 2 puff inhalation Q4H PRN PRN Shortness Of Breath 06/09/21 [History Last Taken Unknown] alendronate 70 mg tablet 70 mg PO QWEEK 06/09/21 [History Last Taken Unknown] apixaban 5 mg (74 tabs) tablets in a dose pack (Eliquis DVT-PE Treat 30D Start) 5 mg PO BID #74 tabs 06/09/21 [Rx Last Taken Unknown] azithromycin 250 mg tablet 250 mg BID 06/09/21 [History Last Taken Unknown] hydrochlorothiazide 25 mg tablet 25 mg DAILY 06/09/21 [History Last Taken Unknown] losartan 50 mg tablet 50 mg DAILY 06/09/21 [History Last Taken Unknown] ondansetron 4 mg disintegrating tablet 4 mg PO Q6H PRN nausea and vomiting #20 tabs 12/26/21 [Rx Last Taken Unknown] Allergy/AdvReac Type Severity Reaction Status Date / Time codeine Allergy Angioedema Verified 12/26/21 17:03 Penicillins [PCN] Allergy Rash Verified 12/26/21 17:03 Sulfa (Sulfonamide AdvReac Unknown Verified 12/26/21 17:03 Antibiotics) Social History Smoking Status: Former smoker ROS ROS ED ROS Narrative Constitutional: No fever, no chills. HEENT: No sore throat. No neck pain. No loss of vision. No rhinorrhea. Cardiovascular: No chest pain. No palpitations. No pedal edema. Respiratory: No cough, no shortness of breath. Abdominal: No abdominal pain. 10 days of nausea. 1 episode of vomiting, nonbloody. Diarrhea/loose stools. Genitourinary: No dysuria. No hematuria. Musculoskeletal: No myalgias. No arthralgias. Neurologic: No headaches. No dizziness. No lightheadedness. Generalized weakness. Skin: No rash. No change in color. Psychiatric: No depression. No anxiety. EXAM Physical Exam Narrative Exam Narrative: Afebrile. Vital signs noted. HEENT: Normocephalic. Atraumatic. PERRL, EOMI. Neck soft and supple. No point tenderness or step off. Cardiovascular: Regular rate and rhythm. No murmurs, rubs, or gallops appreciated. Respiratory: No tachypnea. Lungs clear to auscultation bilaterally. Gastrointestinal: Abdomen soft, nontender, with normoactive bowel sounds. No rebound or guarding. Neurological: Awake. Alert. Nonfocal, nonlateralizing. Skin: No rash. Normal color. No pallor. Musculoskeletal: No pedal edema. Full range of motion extremities. Const Vital Signs: 12/26/21 17:01 Temperature 99.0 F Temperature Source Temporal Pulse Rate 84 Respiratory Rate 16 Blood Pressure 142/74 H Blood Pressure Mean 96 Pulse Ox 99 Oxygen Delivery Method Room Air MDM MDM MDM Narrative Medical decision making narrative: I reviewed the KUB that was taken today. It shows a nonspecific bowel gas pattern and left nephrolithiasis. Comprehensive work-up was pursued. She was bolused normal saline 1 L intravenously, and administered ondansetron 4 mg intravenously. I will obtain a CBC, CMP, urinalysis, and lipase. I do feel that CT imaging is indicated. Patient has leukocytosis of 19.6 with hemoglobin stable at 10.5, hematocrit 31.9. Platelet count normal at 335. Electrolyte panel shows creatinine slightly elevated 1.13 but normal BUN of 14, other electrolytes grossly unremarkable except for glucose of 109 with a normal anion gap/low anion gap of 4. LFTs show AST of 13 and ALT of 24, lipase slightly low at 51. Urinalysis shows 5-10 WBCs but negative ketones. I do not feel antibiotics are indicated. CT of the abdomen and pelvis shows no acute intra-abdominal process, no colitis. She does have a gallstone but no evidence of cholecystitis. At this point in time, she states she was still nauseated even after ondansetron. She was given an oral ODT, and a prescription written. She states that her primary care physician told her that the symptoms could last up to 2 weeks. I feel she be discharged safely home with follow-up. I do not feel that she meets any admission or observation criteria. Return instructions to the emergency department were reviewed. Disposition is discharged home in stable condition. Lab Data Attestation: I reviewed the patient's lab results. Labs: Laboratory Results - last 24 hr 12/26/21 12/26/21 12/26/21 18:00 18:00 19:21 WBC 19.6 H RBC 3.24 L Hgb 10.5 L Hct 31.9 L MCV 98.5 MCH 32.4 H MCHC 32.9 RDW Std Deviation 43.2 RDW Coeff of Jeanna 11.9 Plt Count 335 MPV 8.3 Immature Gran % (Auto) 1.200 H Neut % (Auto) 88.6 H Lymph % (Auto) 5.6 L Lee % (Auto) 4.2 Eos % (Auto) 0.1 Baso % (Auto) 0.3 Absolute Neuts (auto) 17.3 H Absolute Lymphs (auto) 1.10 Nucleated RBC % 0 Sodium 136 Potassium 4.1 Chloride 102 Carbon Dioxide 30.0 Anion Gap 4 L BUN 14 Creatinine 1.13 H Estim Creat Clear Calc 39.03 Est GFR (MDRD) Af Amer 60 Est GFR (MDRD) Non-Af 50 L BUN/Creatinine Ratio 12.4 Glucose 109 H Calcium 10.8 H Total Bilirubin 0.50 AST 13 L ALT 24 Alkaline Phosphatase 76 Total Protein 7.5 Albumin 3.0 L Globulin 4.5 H Albumin/Globulin Ratio 0.7 L Lipase 51 L Urine Color Straw Urine Clarity Clear Urine pH 6.0 Ur Specific Jacobson 1.015 Urine Protein 15 H Urine Glucose (UA) Normal Urine Ketones Negative Urine Occult Blood 25 H Urine Nitrite Negative Urine Bilirubin Negative Urine Urobilinogen Normal Ur Leukocyte Esterase 100 H Urine RBC 0-5 SEEN Urine WBC 5-10 SEEN Ur Squamous Epith Cells 0-5 SEEN Urine Bacteria RARE Urine Mucus 0 SEEN Radiography Diagnostic Testing: Clinical Impression(s) from Imaging Studies Abdomen/Pelvis CT 12/26/21 17:27 IMPRESSION: 1. Stable gallstone without acute cholecystitis. 2. Stable hepatic cyst. 3. Stable left parapelvic renal cyst. 4. Interval hysterectomy. No evidence of acute intra-abdominal process or other major interval change. Electronically Signed: Bautista Tate DO at 19:22 EDT Reading Location ID and State: [facility] / [place] Tel [phone], Service support , Discharge Plan Triage Chief Complaint: Nausea/Vomiting ED Provider: Chip Arreaga Dx/Rx/DC Orders Clinical Impression: Nausea, Diarrhea, Malaise and fatigue, Leukocytosis Instructions: Nausea Vomit Control, ED Diarrhea, Unknown Cause, ED Diet for Vomiting or ... Prescriptions: New ondansetron 4 mg tablet,disintegrating 4 mg PO Q6H PRN (Reason: nausea and vomiting) Qty: 20 0RF No Action atorvastatin 20 MG tablet 20 mg PO QHS levothyroxine 75 MCG tablet 75 mcg PO DAILY sertraline 50 MG tablet 50 mg PO DAILY Label Comments: budesonide-formoterol [Symbicort] 1 INHALER inhaler 2 puff inhalation BID Label Comments: losartan 50 mg tablet 50 mg DAILY Label Comments: Take 1 tablet by mouth daily azithromycin 250 mg tablet 250 mg BID alendronate 70 mg tablet 70 mg PO QWEEK hydrochlorothiazide 25 mg tablet 25 mg DAILY Label Comments: TAKE 1 TABLET BY MOUTH DAILY IN THE MORNING albuterol sulfate 90 mcg/actuation HFA aerosol inhaler 2 puff INHALATION Q4H PRN PRN (Reason: Shortness Of Breath) Label Comments: Inhale 2 Puffs as instructed every 4 hours as needed for wheezing/shortness of breath. Eliquis DVT-PE Treat 30D Start 5 mg (74 tabs) tablets,dose pack 5 mg PO BID Qty: 74 0RF Primary Care Provider: Jessica Lew Referrals: Jessica Lew, DO [Primary Care Provider] - 3-5 Days if not improving Disposition Disposition: Home, Self Care
[2021-12-26] MEDS: 0.9% Normal Saline 1,000 ML 1000 ML IV (17:59)
[2021-12-26] MEDS: Ondansetron 4 MG/2 ML Vial IV (17:59)
[2021-12-26 18:18] LABS: Absolute Neutrophil Count 17.3 X10^3/uL (2.0-7.7); Basophil# 0.05 X10^3/uL; Basophil% 0.3 % (0-1); Eosinophil# 0.02 X10^3/uL; Eosinophils% 0.1 % (0-5); Hematocrit 31.9 % (37-47); Hemoglobin 10.5 g/dL (12.0-15.0); Lymphocyte % 5.6 % (19-41); Mean Corp Hgb Conc 32.9 g/dL (32-36); Mean Corpuscular Hgb 32.4 pg (27.0-32.0); Mean Corpuscular Volume 98.5 fL (81-99); Mean Platelet Vol. 8.3 fl (6.2-12.0); Monocyte# 0.82 X10^3/uL; Monocyte% 4.2 % (0-10); NRBC Flagged by Analyzer 0 % (0-5); Neutrophil # 17.34 X10^3/uL (2.7-7.7); Neutrophil % 88.6 % (47-70); Platelet Count 335 K/mm3 (150-450); RBC Distribution Width CV 11.9 % (11.6-14.6); RBC Distribution Width SD 43.2 fl (35.1-43.9); Red Blood Count 3.24 M/mm3 (4.2-5.4); White Blood Count 19.6 K/mm3 (4.4-11.0)
[2021-12-26 18:35] LABS: BUN 14 mg/dL (7-18); Creatinine, Serum 1.13 mg/dL (0.55-1.02); Estimated Creatinine Clearance 39.03 ml/min; Glucose 109 mg/dL (74-106)
[2021-12-26 18:36] LABS: ALB/GLOB Ratio 0.7 RATIO (0.9-2.4); AST(SGOT) 13 U/L (15-37); Alanine Aminotransfer ALT/SGPT 24 U/L (13-56); Alkaline Phosphatase 76 U/L (45-117); Anion Gap 4 (5-15); BUN/Creat Ratio 12.4 RATIO (10-20); Calcium,Total 10.8 mg/dL (8.5-10.1); Chloride 102 mmol/L (98-107); EST Glomerular Filtration Rate 50 mL/min (>60); Est Glom Filt Rate - Afr Amer 60 mL/min (>60); Globulin 4.5 g/dL (2.2-4.2); Lipase 51 U/L (73-393); Potassium 4.1 mmol/L (3.5-5.1); Protein, Total 7.5 g/dL (6.4-8.2); Sodium Level 136 mmol/L (136-145)
[2021-12-26 19:28] LABS: Mucous, Urine 0 SEEN /hpf (<or=2+)
[2021-12-26 19:31] LABS: Color, Urine Straw (Yellow); Glucose, Dipstick Normal (Normal); Ketone-Dipstick Negative (Negative); Leukocyte Esterase-Dipstick 100 /ul (Negative); Nitrite-Dipstick Negative (Negative); Occult Blood-Urine 25 /ul (Negative); Protein-Dipstick 15 mg/dl (Negative); Specific Gravity, Urine 1.015 (1.002-1.030); Urine Bilirubin Dipstick Negative (Negative); Urine Clarity Clear (Clear); Urine Urobilinogen Normal (Normal)
[2021-12-26 19:48] LABS: Bacteria RARE /hpf (None Seen); Red Blood Cells-Urine 0-5 SEEN /hpf (0-5); Squamous Epithelial Cells - UA 0-5 SEEN /hpf (5-10); White Blood Cells 5-10 SEEN /hpf (0-5)
[2021-12-26] MEDS: Ondansetron ODT 4 MG Tablet PO (20:41)
[2021-12-26 20:45] VITALS: RESP 16
--- NOTE | 2021-12-26 20:46 | ED.RN ---
REVIEWED D/C INSTRUCTIONS, FOLLOW UP CARE, PRESCRIPTION, AND S/S THAT WOULD WARRANT A RETURN TO THE ED WITH PT. PT VERBALIZED AN UNDERSTANDING AND DENIES FURTHER QUESTIONS FOR THIS RN. PT SKIN P/W/D, RESP EVEN AND UNLABORED, PT A&O X 3, NO DISTRESS NOTED. PT AMBULATED OUT OF ED, GAIT STEADY.
== END 2021-12-26 20:47 | disposition home or self-care (01) ==
PROVIDERS: Emergency Provider Emergency Medicine; PCP Internal Medicine; Visit Provider Emergency Medicine
DX: R11.2 Nausea with vomiting, unspecified (principal); R19.7 Diarrhea, unspecified; R53.81 Other malaise; R53.83 Other fatigue; D72.829 Elevated white blood cell count, unspecified; Z87.891 Personal history of nicotine dependence
CPT/HCPCS: 74177; 80053; 81001; 83690; 85025; 96361; 96374; 99283; J7030; Q9967; A4216; J2405

== ENCOUNTER 2021-12-30 19:00 | Emergency (ER) | payer MEDICARE, SELFPAY ==
[2021-12-30 19:01] VITALS: BP 136/73; PULSE 87; RESP 16; TEMP 37.6; O2SAT 94; BMI 23.7
--- NOTE | 2021-12-30 19:38 | EKG12_ITS ---
Test Reason : sob Blood Pressure : / mmHG Vent. Rate : 088 BPM Atrial Rate : 088 BPM P-R Int : 148 ms QRS Dur : 070 ms QT Int : 348 ms P-R-T Axes : 034 037 022 degrees QTc Int : 421 ms Normal sinus rhythm Normal ECG Confirmed by TANA TOVAR, MARIO ([id number]), online editor ROBERTO PRESTON ([id number]) on 01/01/2022 2:02:21 PM Referred By: Confirmed By:MARIO FAJARDO MD
--- NOTE | 2021-12-30 19:39 | EDS_ITS ---
HPI History of Present Illness Chief Complaint: Cold Sx Informant: patient Narrative Narrative: 6-year-old female was seen here couple days ago with nausea and diarrhea. She states that the diarrhea has resolved. She states now her chief complaint is a cough. She states she has been coughing for about a week but in the past couple days is gotten significantly more worse. She notes that her chest hurts now when she coughs. She notes that it is midsternal on both sides of the breastbone. She denies any fever. She has a history of COPD and is on Eliquis. She reports that she went to urgent care today and was told that she had pneumonia on the right and the left and was sent to the emergency department. She denies any shortness of breath. She is not a smoker. She cannot recall her COPD medications but does state that she sees Dr. Ang. [facility] Medical History COPD (chronic obstructive pulmonary disease) HTN (hypertension) Home Medications atorvastatin 20 mg tablet 20 mg PO QHS 12/08/16 [History Last Taken Unknown] budesonide-formoterol HFA 160 mcg-4.5 mcg/actuation aerosol inhaler (Symbicort) 2 puff inhalation BID 12/08/16 [History Last Taken Unknown] levothyroxine 75 mcg tablet 75 mcg PO DAILY 12/08/16 [History Last Taken Unknown] sertraline 50 mg tablet 50 mg PO DAILY 12/08/16 [History Last Taken Unknown] albuterol sulfate 90 mcg/actuation aerosol inhaler 2 puff inhalation Q4H PRN PRN Shortness Of Breath 06/09/21 [History Last Taken Unknown] alendronate 70 mg tablet 70 mg PO QWEEK 06/09/21 [History Last Taken Unknown] apixaban 5 mg (74 tabs) tablets in a dose pack (Eliquis DVT-PE Treat 30D Start) 5 mg PO BID #74 tabs 06/09/21 [Rx Last Taken Unknown] azithromycin 250 mg tablet 250 mg BID 06/09/21 [History Last Taken Unknown] hydrochlorothiazide 25 mg tablet 25 mg DAILY 06/09/21 [History Last Taken Unknown] losartan 50 mg tablet 50 mg DAILY 06/09/21 [History Last Taken Unknown] ondansetron 4 mg disintegrating tablet 4 mg PO Q6H PRN nausea and vomiting #20 tabs 12/26/21 [Rx Last Taken Unknown] dextromethorphan-benzocaine 5 mg-7.5 mg lozenges (Sore Throat and Cough) 1 gage PO Q4H PRN sore throat #18 ea 12/30/21 [Rx Last Taken Unknown] Allergy/AdvReac Type Severity Reaction Status Date / Time codeine Allergy Angioedema Verified 12/30/21 19:03 Penicillins [PCN] Allergy Rash Verified 12/30/21 19:03 Sulfa (Sulfonamide AdvReac Unknown Verified 12/30/21 19:03 Antibiotics) Social History (Updated 12/30/21 @ 19:[address] Kamaljit Clark, DO) Smoking Status: Former smoker substance use type: does not use ROS ROS ED Constitutional Constitutional ED: Denies chills, fever(s) or weight loss Eyes Eyes: Denies change in vision or diplopia ENT ENT ED: Denies ear pain, rhinorrhea or sore throat Cardiovascular Cardiovascular: Reports chest pain; Denies orthopnea, palpitations or racing heartbeat Respiratory/Chest Respiratory/Chest: Reports cough; Denies dyspnea or orthopnea Gastrointestinal Gastrointestinal: Denies abdominal pain, diarrhea, nausea or vomiting Genitourinary Genitourinary ED: Denies dysuria, hematuria or urinary frequency Musculoskeletal Musculoskeletal: Reports myalgias; Denies arthralgias, back pain or neck pain Integumentary Denies abscess or rash Neurologic Neurologic: Denies headache(s) or weakness Psychiatric Psychiatric: Denies anxiety, depression, suicidal ideation or suicidal thoughts Endocrine Endocrinology: Denies polydipsia, polyphagia or polyuria Allergic/Immunologic Allergic/Immunologic ED: Denies mouth swelling, tongue swelling or urticaria EXAM Physical Exam Const Vital Signs: 12/30/21 19:01 12/30/21 19:55 12/30/21 19:57 Temperature 99.6 F H 99.6 F H Temperature Source Temporal Temporal Pulse Rate 87 87 88 Respiratory Rate 16 16 18 Blood Pressure 136/73 H 136/73 H Blood Pressure Mean 94 Pulse Ox 94 94 Oxygen Delivery Method Room Air Room Air Positive well nourished and well developed General Appearance ED: well developed HEENT Reports normocephalic, head/scalp atraumatic and moist mucous membranes Eyes PERRL and EOMs intact bilaterally Neck no lymphadenopathy, supple and no JVD Chest Wall Chest Narrative: Chest is tender to palpation along the costochondral border of the manubrium. Resp normal respiratory effort and clear to auscultation bilaterally Cardio regular rate, regular rhythm and no murmurs GI normal to inspection, nondistended, normoactive bowel sounds and non-tender Palpation: soft Back/Spine no CVA tenderness and normal ROM Extremity normal to inspection General Extremety ED: Negative for edema General Extremity: Negative for edema Neuro oriented x3 and CN's II-XII intact bilaterally Sensorium / Orientation: alert Motor Exam: strength 5/5 throughout Psych mental status grossly normal Mood & Affect: Negative for depressed or tearful Skin no rashes or lesions noted and no wounds MDM MDM MDM Narrative Medical decision making narrative: My interpretation of the chest x-ray is multifocal pneumonia consistent with COVID-19. Indeed her COVID-19 test is positive. White count 12.5 hemoglobin 11.1. Troponin of 5. CMP showed a creatinine 1.2 with a BUN of 21. Patient received Toradol fluids and a DuoNeb. She feels better. Patient will be prescribed Cepacol. She has nausea medication at home. She was noted to desat to 88% on room air while sleeping but she has known sleep apnea. As long as she is awake she does not desaturate. At this point patient will be discharged home. Its difficult to say at what point did her COVID-19 symptoms start but it is but least been 1 week since she is coughed in 2 weeks and she started with diarrhea. Lab Data Attestation: I reviewed the patient's lab results. Labs: Laboratory Results - last 24 hr 12/30/21 12/30/21 12/30/21 19:55 19:55 19:55 WBC 12.5 H RBC 3.40 L Hgb 11.1 L Hct 33.0 L MCV 97.1 MCH 32.6 H MCHC 33.6 RDW Std Deviation 43.9 RDW Coeff of Jeanna 12.4 Plt Count 329 MPV 8.5 Immature Gran % (Auto) 0.900 Neut % (Auto) 85.9 H Lymph % (Auto) 5.4 L Reynolds % (Auto) 7.5 Eos % (Auto) 0.0 Baso % (Auto) 0.3 Absolute Neuts (auto) 10.8 H Absolute Lymphs (auto) 0.68 L Nucleated RBC % 0 PT 18.7 H INR 1.6 APTT 37.2 H Sodium 132 L Potassium 4.0 Chloride 99 Carbon Dioxide 26.0 Anion Gap 7 BUN 21 H Creatinine 1.20 H Estim Creat Clear Calc 36.75 Est GFR (MDRD) Af Amer 56 L Est GFR (MDRD) Non-Af 46 L BUN/Creatinine Ratio 17.5 Glucose 82 Calcium 9.4 Total Bilirubin 0.40 AST 14 L ALT 17 Alkaline Phosphatase 71 Troponin I High Sens 5 Total Protein 7.7 Albumin 3.1 L Globulin 4.6 H Albumin/Globulin Ratio 0.7 L Radiography Diagnostic Testing: Clinical Impression(s) from Imaging Studies Chest X-Ray 12/30/21 20:10 IMPRESSION: 1. Multifocal pneumonia. Electronically Signed: Dami Nye DO at 20:30 EDT , EKG Initial EKG: Attestation: I personally reviewed and interpreted this EKG as follows: Comments: Normal sinus rhythm ventricular rate of 88 bpm Discharge Plan Triage Chief Complaint: Cold Sx ED Provider: Kamaljit Clark Dx/Rx/DC Orders Clinical Impression: Nausea, Malaise and fatigue, COVID-19, Pneumonia due to COVID-19 virus, Sleep apnea Instructions: COVID-19 and the Flu: What's the Difference? Prescriptions: New Sore Throat and Cough 5-7.5 mg lozenge 1 gage PO Q4H PRN (Reason: sore throat) Qty: 18 0RF No Action atorvastatin 20 MG tablet 20 mg PO QHS levothyroxine 75 MCG tablet 75 mcg PO DAILY sertraline 50 MG tablet 50 mg PO DAILY Label Comments: budesonide-formoterol [Symbicort] 1 INHALER inhaler 2 puff inhalation BID Label Comments: losartan 50 mg tablet 50 mg DAILY Label Comments: Take 1 tablet by mouth daily azithromycin 250 mg tablet 250 mg BID alendronate 70 mg tablet 70 mg PO QWEEK hydrochlorothiazide 25 mg tablet 25 mg DAILY Label Comments: TAKE 1 TABLET BY MOUTH DAILY IN THE MORNING albuterol sulfate 90 mcg/actuation HFA aerosol inhaler 2 puff INHALATION Q4H PRN PRN (Reason: Shortness Of Breath) Label Comments: Inhale 2 Puffs as instructed every 4 hours as needed for wheezing/shortness of breath. Eliquis DVT-PE Treat 30D Start 5 mg (74 tabs) tablets,dose pack 5 mg PO BID Qty: 74 0RF ondansetron 4 mg tablet,disintegrating 4 mg PO Q6H PRN (Reason: nausea and vomiting) Qty: 20 0RF Primary Care Provider: Jessica Lew Referrals: Jessica Lew DO [Primary Care Provider] - As Needed Activity Restrictions/Additional Instructions: Discussed Chloraseptic may be of benefit. Use your nausea medicine at home for nausea. Disposition Disposition: Home, Self Care
[2021-12-30 19:55] VITALS: BP 136/73; PULSE 87; RESP 16; TEMP 37.6; O2SAT 94
[2021-12-30 19:57] VITALS: PULSE 88; RESP 18
[2021-12-30] MEDS: Ipratropium/Albuterol Sulfate 3 ML AMPUL.NEB INHALATION (19:57)
[2021-12-30] MEDS: Ketorolac 15 MG/ML Vial IV (20:03)
[2021-12-30] MEDS: 0.9% Normal Saline 1,000 ML 1000 ML IV (20:03)
--- NOTE | 2021-12-30 20:10 | RAD_ITS ---
INDICATION: cough EXAMINATION/TECHNIQUE: X-RAY - XR Chest 1 View COMPARISON: Chest x-ray 06/09/2021. FINDINGS: LINES/DEVICES: None. LUNGS: Bilateral patchy airspace opacities and mild bilateral, right greater than left, reticular opacities likely representing multifocal pneumonia. No dense lobar consolidation. No pleural effusion. No pneumothorax. MEDIASTINUM AND CARDIOVASCULAR STRUCTURES: Normal size and contour of the cardiomediastinal silhouette. No lymphadenopathy. No evidence of pulmonary vascular congestion. BONES AND SOFT TISSUES: No fracture or focal osseous lesion. RAD/Chest 1 View (Portable) IMPRESSION: 1. Multifocal pneumonia. Electronically Signed: Dami Nye DO at 20:30 EDT ,
[2021-12-30 21:00] LABS: Absolute Lymphocyte Count 0.68 X10^3/uL (0.83-4.51); Absolute Neutrophil Count 10.8 X10^3/uL (2.0-7.7); Basophil# 0.04 X10^3/uL; Basophil% 0.3 % (0-1); Hemoglobin 11.1 g/dL (12.0-15.0); Lymphocyte # 0.68 X10^3/ul (0.83-4.51); Lymphocyte % 5.4 % (19-41); Mean Corp Hgb Conc 33.6 g/dL (32-36); Mean Corpuscular Hgb 32.6 pg (27.0-32.0); Mean Corpuscular Volume 97.1 fL (81-99); Mean Platelet Vol. 8.5 fl (6.2-12.0); Monocyte# 0.94 X10^3/uL; Monocyte% 7.5 % (0-10); NRBC Flagged by Analyzer 0 % (0-5); Neutrophil # 10.75 X10^3/uL (2.7-7.7); Neutrophil % 85.9 % (47-70); Platelet Count 329 K/mm3 (150-450); RBC Distribution Width CV 12.4 % (11.6-14.6); RBC Distribution Width SD 43.9 fl (35.1-43.9); White Blood Count 12.5 K/mm3 (4.4-11.0)
[2021-12-30 21:31] LABS: International Normalized Ratio 1.6; Partial Thromboplast Time 37.2 Seconds (24.1-36.2); Prothrombin Time (Protime)PT. 18.7 SECONDS (11.7-14.9)
[2021-12-30 21:35] LABS: ALB/GLOB Ratio 0.7 RATIO (0.9-2.4); AST(SGOT) 14 U/L (15-37); Alanine Aminotransfer ALT/SGPT 17 U/L (13-56); Albumin, Serum 3.1 g/dL (3.2-5.0); Alkaline Phosphatase 71 U/L (45-117); Anion Gap 7 (5-15); BUN 21 mg/dL (7-18); BUN/Creat Ratio 17.5 RATIO (10-20); Calcium,Total 9.4 mg/dL (8.5-10.1); Chloride 99 mmol/L (98-107); EST Glomerular Filtration Rate 46 mL/min (>60); Est Glom Filt Rate - Afr Amer 56 mL/min (>60); Estimated Creatinine Clearance 36.75 ml/min; Globulin 4.6 g/dL (2.2-4.2); Glucose 82 mg/dL (74-106); Protein, Total 7.7 g/dL (6.4-8.2); Sodium Level 132 mmol/L (136-145); Troponin-I HS 5 pg/mL (3.0-54.0)
[2021-12-30 21:58] LABS: Lactic Acid 0.5 mmol/L (0.4-1.9)
== END 2021-12-30 21:53 | disposition home or self-care (01) ==
PROVIDERS: Emergency Provider Emergency Medicine; PCP Internal Medicine; Visit Provider Emergency Medicine
DX: U07.1 COVID-19 (principal); J12.82 Pneumonia due to coronavirus disease 2019; R11.0 Nausea; R53.81 Other malaise; G47.30 Sleep apnea, unspecified; Z79.01 Long term (current) use of anticoagulants; Z87.891 Personal history of nicotine dependence
CPT/HCPCS: 71045; 80053; 83605; 84484; 85025; 85610; 85730; 87040; 87811; 93005; 94640; 96361; 96374; 99283; J7030; A4216

== ENCOUNTER 2021-12-31 19:23 | Emergency (ER) | payer MEDICARE, SELFPAY ==
[2021-12-31 19:24] VITALS: BP 126/59; PULSE 75; RESP 19; TEMP 36.8; O2SAT 89; O2SAT 91; BMI 24.1
[2021-12-31 19:27] VITALS: BP 126/59; PULSE 75; RESP 19; TEMP 36.8; O2SAT 91
[2021-12-31 19:35] VITALS: O2SAT 92
[2021-12-31 19:42] VITALS: O2SAT 98
--- NOTE | 2021-12-31 20:29 | CM.ED ---
Patient's RN said patient has neighbor that can call and check on her. RN said that patient called EMS when oxygen stat was 85% so patient is very alert to her medical needs and/or concerns. Rochelle DOW
[2021-12-31 20:35] VITALS: O2SAT 94
--- NOTE | 2021-12-31 21:45 | EDS_ITS ---
HPI History of Present Illness Chief Complaint: General Illness Informant: patient Onset/Context/Timing Onset: Weeks Context: Gradual Onset Timing: Continuous Current Severity: Mild Maximum Severity: Mild Narrative Narrative: 76-year-old female history of COPD, hypertension, prediabetes and pulmonary emboli. Is currently on the blood thinner Eliquis. Yesterday she was positive for COVID. She had negative test prior to that. She had URI symptoms for 1 to 2 weeks. Nausea without vomiting no diarrhea. Today her pulse ox would run in the mid 80s at home and she came in to be evaluated. She denies feeling significantly short of breath. No chest pain. Prior similar symptoms: Yes Recent Illness/Hospitalization: [facility] Medical History COPD (chronic obstructive pulmonary disease) HTN (hypertension) Home Medications atorvastatin 20 mg tablet 20 mg PO QHS 12/08/16 [History Last Taken Unknown] budesonide-formoterol HFA 160 mcg-4.5 mcg/actuation aerosol inhaler (Symbicort) 2 puff inhalation BID 12/08/16 [History Last Taken Unknown] levothyroxine 75 mcg tablet 75 mcg PO DAILY 12/08/16 [History Last Taken Unknown] sertraline 50 mg tablet 50 mg PO DAILY 12/08/16 [History Last Taken Unknown] albuterol sulfate 90 mcg/actuation aerosol inhaler 2 puff inhalation Q4H PRN PRN Shortness Of Breath 06/09/21 [History Last Taken Unknown] alendronate 70 mg tablet 70 mg PO QWEEK 06/09/21 [History Last Taken Unknown] apixaban 5 mg (74 tabs) tablets in a dose pack (Eliquis DVT-PE Treat 30D Start) 5 mg PO BID #74 tabs 06/09/21 [Rx Last Taken Unknown] losartan 50 mg tablet 50 mg DAILY 06/09/21 [History Last Taken Unknown] ondansetron 4 mg disintegrating tablet 4 mg PO Q6H PRN nausea and vomiting #20 tabs 12/26/21 [Rx Last Taken Unknown] dextromethorphan-benzocaine 5 mg-7.5 mg lozenges (Sore Throat and Cough) 1 gage PO Q4H PRN sore throat #18 ea 12/30/21 [Rx Last Taken Unknown] nirmatrelvir 300 mg (150 mg x2)-ritonavir 100 mg tablet,dose pack(EUA) (Paxlovid) See Rx Instructions PO .COMPLEX #30 tabs 12/31/21 [Rx Last Taken Unknown] Allergy/AdvReac Type Severity Reaction Status Date / Time codeine Allergy Angioedema Verified 12/31/21 19:27 Penicillins [PCN] Allergy Rash Verified 12/31/21 19:27 Sulfa (Sulfonamide AdvReac Unknown Verified 12/31/21 19:27 Antibiotics) Social History Smoking Status: Former smoker substance use type: does not use ROS ROS ED ROS Narrative Cough, fever and chills. Review of Systems ROS Unobtainable: Denies due to encephalopathy Constitutional Constitutional ED: Reports chills and fever(s) Eyes Eyes: Denies blurry vision ENT ENT ED: Reports sore throat; Denies ear pain Cardiovascular Cardiovascular: Denies chest pain Respiratory/Chest Respiratory/Chest: Reports cough Gastrointestinal Gastrointestinal: Denies abdominal pain or constipation Genitourinary Genitourinary ED: Denies dysuria or hematuria Musculoskeletal Musculoskeletal: Reports arthralgias and myalgias Integumentary Denies abscess Neurologic Neurologic: Denies headache(s) Psychiatric Psychiatric: Denies anxiety Endocrine Endocrinology: Denies cold intolerance Hematologic/Lymphatic Hematologic/Lymphatic: Reports none Allergic/Immunologic Allergic/Immunologic ED: Denies mouth swelling EXAM Physical Exam Narrative Exam Narrative: 76-year-old female no acute distress vital signs stable afebrile. Pulse ox 89 to 91% on room air my hypoxia. Ambulating 86%. H EENT exam unremarkable. Moist remembers. Neck nontender no JVD. Lungs clear to auscultation bilaterally. Heart regular rhythm no murmur rate about 75. Abdomen soft nontender. Moving all 4 extremities. Calves are nontender without edema or cords. Neurologically she is awake and alert with no focal motor deficits. Const Vital Signs: 12/31/21 19:24 12/31/21 19:24 12/31/21 19:27 Temperature 98.2 F 98.2 F Temperature Source Oral Oral Pulse Rate 75 75 Respiratory Rate 19 H 19 H Respiratory Effort Blood Pressure 126/59 H 126/59 H Blood Pressure Mean 81 Pulse Ox 89 91 91 Oxygen Delivery Method Room Air Room Air Room Air 12/31/21 19:28 12/31/21 19:42 Temperature Temperature Source Pulse Rate Respiratory Rate Respiratory Effort Normal Non-Labored Blood Pressure Blood Pressure Mean Pulse Ox 98 Oxygen Delivery Method Room Air Positive well nourished and well developed; Negative for obese, cachectic, contractures or unkempt General Appearance ED: well developed and NAD; Negative for unkempt, cachectic, contractures, cyanotic or diaphoretic Nutritional Appearance: Negative for cachectic or obese HEENT Reports moist mucous membranes Negative for trauma Eyes PERRL and EOMs intact bilaterally General Eye ED: Negative for pale conjunctiva or scleral icterus Neck no lymphadenopathy, supple and no JVD General: Negative for tenderness Lymph Lymphatic: Negative for other Chest Wall inspection of chest normal and palpation of chest normal Chest: Negative for other Resp normal respiratory effort and clear to auscultation bilaterally Effort and Inspection: Negative for retractions Auscultation: Negative for rales, rhonchi or wheezes Cardio regular rate, regular rhythm, S1 normal heart sound, S2 normal heart sound and no murmurs Palpation: Negative for palpable S3 Rate: Negative for bradycardia Rhythm: Negative for abnormal rhythm GI normal to inspection, nondistended, normoactive bowel sounds, non-tender, non- distended and no masses Inspection: Negative for abdominal distention Auscultation: normoactive bowel sounds Palpation: soft; Negative for tender Bladder / Kidney Exam: No other Back/Spine no CVA tenderness General Back: Negative for CVA tenderness Cervical Spine: Negative for cervical spine tenderness Thoracic Spine / Upper Back: Negative for thoracic spinal tenderness Lumbar Spine / Lower Back: Negative for lumbar spinal tenderness Extremity normal to inspection General Extremety ED: Negative for edema or tenderness General Extremity: Negative for edema Neuro oriented x3 and CN's II-XII intact bilaterally Sensorium / Orientation: alert; Negative for orientation impaired, lethargic or stuporous Motor Exam: strength 5/5 throughout; Negative for general weakness Psych mental status grossly normal Appearance: Negative for unkempt Attitude: No agitated Mood & Affect: Negative for depressed, anxious or tearful Skin no rashes or lesions noted and no wounds Rashes: No rashes noted Trauma: Negative for abrasion Wounds: Negative for wounds noted MDM MDM MDM Narrative Medical decision making narrative: 76-year-old with COVID with hypoxia. I reviewed her test from the last few days. Her labs are unremarkable. Her chest x-ray looks like COVID pneumonitis. She just tested positive yesterday. She and I discussed admission she is comfortable being discharged home. She will be started on Paxil ovate the antiviral for COVID. She is being set up with home oxygen. Discharge Plan Triage Chief Complaint: General Illness ED Provider: Elan Voss Dx/Rx/DC Orders Clinical Impression: COVID-19, Hypoxia, History of COPD Instructions: Human Coronaviruses Prescriptions: New Paxlovid (EUA) 300 mg (150 mg x 2)-100 mg tablets,dose pack See Rx Instructions .ROUTE .COMPLEX Qty: 30 0RF Rx Instructions: take TWO 150 mg tablets of nirmatrelvir with ONE 100 mg tablet of ritonavir twice daily for 5 days No Action atorvastatin 20 MG tablet 20 mg PO QHS levothyroxine 75 MCG tablet 75 mcg PO DAILY sertraline 50 MG tablet 50 mg PO DAILY Label Comments: budesonide-formoterol [Symbicort] 1 INHALER inhaler 2 puff inhalation BID Label Comments: losartan 50 mg tablet 50 mg DAILY Label Comments: Take 1 tablet by mouth daily alendronate 70 mg tablet 70 mg PO QWEEK albuterol sulfate 90 mcg/actuation HFA aerosol inhaler 2 puff INHALATION Q4H PRN PRN (Reason: Shortness Of Breath) Label Comments: Inhale 2 Puffs as instructed every 4 hours as needed for wheezing/shortness of breath. Eliquis DVT-PE Treat 30D Start 5 mg (74 tabs) tablets,dose pack 5 mg PO BID Qty: 74 0RF ondansetron 4 mg tablet,disintegrating 4 mg PO Q6H PRN (Reason: nausea and vomiting) Qty: 20 0RF Sore Throat and Cough 5-7.5 mg lozenge 1 gaeg PO Q4H PRN (Reason: sore throat) Qty: 18 0RF Primary Care Provider: Jessica Lew Referrals: Jessica Lew DO [Primary Care Provider] - 1 Week if not improving Activity Restrictions/Additional Instructions: Plenty of fluids and rest. Tylenol for body aches and fever. Continue your current medications. Begin the antiviral Paxlovid for the COVID. Oxygen until you are feeling better and your pulse ox is consistently higher than 90%. Return if you are feeling worse. Follow-up with your doctor if not improving. Disposition Disposition: Home, Self Care
[2021-12-31 22:00] VITALS: O2SAT 97
== END 2021-12-31 22:46 | disposition home or self-care (01) ==
PROVIDERS: Emergency Provider Emergency Medicine; PCP Internal Medicine; Visit Provider Emergency Medicine
DX: U07.1 COVID-19 (principal); J44.9 Chronic obstructive pulmonary disease, unspecified; I10 Essential (primary) hypertension; R09.02 Hypoxemia; Z79.899 Other long term (current) drug therapy; Z79.01 Long term (current) use of anticoagulants; Z86.711 Personal history of pulmonary embolism; Z87.891 Personal history of nicotine dependence
CPT/HCPCS: 99282

== ENCOUNTER → 2022-01-30 | Outpatient (CLI) | payer MEDICARE, SELFPAY ==
--- NOTE | 2022-01-30 14:45 | CT_ITS ---
INDICATION: BILAT PE RE-EVAL EXAMINATION: CTA Chest WO/W Contrast Injection TECHNIQUE: Helically acquired images were obtained of the chest following administration of IV contrast. A radiation dose optimization technique was used for this scan. 3D postprocessing images including MIPS were reviewed. IV Contrast dosage and agent: IV 100mL Isovue-370 COMPARISON: 06/09/2021. FINDINGS: Lungs: Scattered groundglass, and tiny nodular and tree-in-bud opacities, mostly in the right lower lobe. Mediastinum: The cardiomediastinal silhouette is not enlarged. No mediastinal, hilar or axillary adenopathy. Mild aortic arch and coronary artery calcifications. No obvious filling defect seen within the visualized pulmonary arteries. Pleura: Unremarkable Bones/Soft tissues: There are diffuse degenerative changes of the spine. Upper abdomen: No visualized abnormalities in the upper abdomen. CT/CTA Chest W/WO Contrast IMPRESSION: No evidence of acute pulmonary emboli to the segmental level. Scattered groundglass, and tiny nodular and tree-in-bud opacities, mostly in the right lower lobe. This could be infectious or inflammatory etiology. Electronically Signed: Emil Pollard MD at 16:55 EDT ,
== END | disposition home or self-care (01) ==
LOC: CT 14:43
PROVIDERS: PCP Internal Medicine; Referring Provider Internal Medicine; Visit Provider Internal Medicine
DX: I26.99 Other pulmonary embolism without acute cor pulmonale (principal)
CPT/HCPCS: 71275; Q9967

== ENCOUNTER → 2022-03-05 | Outpatient (CLI) | payer MEDICARE, SELFPAY ==
[2022-03-05 16:00] LABS: Vitamin D,25 Hydroxy 63.8 ng/mL
[2022-03-05 16:26] LABS: ALB/GLOB Ratio 0.8 RATIO (0.9-2.4); AST(SGOT) 9 U/L (15-37); Alanine Aminotransfer ALT/SGPT 17 U/L (13-56); Albumin, Serum 3.5 g/dL (3.2-5.0); Alkaline Phosphatase 58 U/L (45-117); Anion Gap 8 (5-15); BUN 13 mg/dL (7-18); BUN/Creat Ratio 11.4 RATIO (10-20); Calcium,Total 11.8 mg/dL (8.5-10.1); Chloride 104 mmol/L (98-107); Creatinine, Serum 1.14 mg/dL (0.55-1.02); EST Glomerular Filtration Rate 49 mL/min (>60); Est Glom Filt Rate - Afr Amer 59 mL/min (>60); Globulin 4.2 g/dL (2.2-4.2); Glucose 244 mg/dL (74-106); Magnesium 2.2 mg/dL (1.6-2.6); Potassium 3.9 mmol/L (3.5-5.1); Protein, Total 7.7 g/dL (6.4-8.2); Sodium Level 139 mmol/L (136-145); Thyroid Stim Hormone (TSH) 1.02 uIU/mL (0.358-3.74)
[2022-03-05 16:35] LABS: PTHIN 174.1 pg/mL (18.4-80.1)
== END | disposition home or self-care (01) ==
LOC: LAB 14:24
PROVIDERS: PCP Internal Medicine; Visit Provider Internal Medicine Endocrinology, Diabetes & Metabolism
DX: E21.0 Primary hyperparathyroidism (principal); E03.8 Other specified hypothyroidism; E55.9 Vitamin D deficiency, unspecified
CPT/HCPCS: 36415; 80053; 82306; 83735; 83970; 84443

== ENCOUNTER → 2022-03-23 | Outpatient (CLI) | payer MEDICARE, SELFPAY ==
[2022-03-23 15:47] LABS: Anion Gap 5 (5-15); BUN 19 mg/dL (7-18); BUN/Creat Ratio 17.8 RATIO (10-20); Chloride 103 mmol/L (98-107); Creatinine, Serum 1.07 mg/dL (0.55-1.02); EST Glomerular Filtration Rate 53 mL/min (>60); Est Glom Filt Rate - Afr Amer 64 mL/min (>60); Glucose 160 mg/dL (74-106); Potassium 4.1 mmol/L (3.5-5.1); Sodium Level 138 mmol/L (136-145)
== END | disposition home or self-care (01) ==
PROVIDERS: PCP Internal Medicine; Visit Provider Internal Medicine Endocrinology, Diabetes & Metabolism
DX: E21.0 Primary hyperparathyroidism (principal)
CPT/HCPCS: 36415; 80048

== ENCOUNTER → 2022-03-27 | Outpatient (CLI) | payer MEDICARE, SELFPAY ==
[2022-03-27 16:07] LABS: Hemoglobin 11.7 g/dL (12.0-15.0); Mean Corp Hgb Conc 32.5 g/dL (32-36); Mean Corpuscular Hgb 32.5 pg (27.0-32.0); Mean Platelet Vol. 8.9 fl (6.2-12.0); Platelet Count 228 K/mm3 (150-450); RBC Distribution Width CV 13.7 % (11.6-14.6); RBC Distribution Width SD 50.4 fl (35.1-43.9); White Blood Count 12.2 K/mm3 (4.4-11.0)
[2022-03-27 16:27] LABS: Prothrombin Time (Protime)PT. 12.8 SECONDS (11.7-14.9)
[2022-03-27 16:28] LABS: Partial Thromboplast Time 23.5 Seconds (24.1-36.2)
[2022-03-27 17:30] LABS: D-Dimer Quantitative (DVT/PE) 2.43 FEU/ug/m (0.27-0.49)
== END | disposition home or self-care (01) ==
LOC: LAB 15:41
PROVIDERS: PCP Internal Medicine; Visit Provider Internal Medicine Pulmonary Disease
DX: R06.00 Dyspnea, unspecified (principal); E83.52 Hypercalcemia; R10.9 Unspecified abdominal pain
CPT/HCPCS: 36415; 85027; 85049; 85379; 85610; 85730

== ENCOUNTER → 2022-04-02 | Outpatient (CLI) | payer MEDICARE, SELFPAY ==
--- NOTE | 2022-04-02 14:57 | VDLE_ITS ---
Reason For Study: Elevated D-dimer RIGHT LEFT GSV is normal. GSV is normal. CFV is compressible, spontaneous, phasic, CFV is compressible, spontaneous, phasic, competent and demonstrates normal competent, and demonstrates normal augmentation. augmentation. FV is compressible, spontaneous, phasic, FV is compressible, spontaneous, phasic, competent and demonstrates normal competent and demonstrates normal augmentation. augmentation. POP V is compressible, spontaneous, phasic, POP V is compressible, spontaneous, phasic, competent and demonstrates normal competent and demonstrates normal augmentation. augmentation. T/P Trunk is compressible. T/P Trunk is compressible. PTV is compressible. PTV is compressible. RT PerV is compressible. LT PerV is compressible. Procedure This is a venous duplex using B-mode, color flow and spectral Doppler. Exam performed in department. A preliminary report was called and/or faxed to [facility]. VL/Venous Duplex US - Terrence Extrem Interpretation Summary Deep veins of the lower extremities are bilaterally patent and compressible seg mentally. There is no evidence of deep vein thrombosis on either side. Valvular competence appears in tact within the proximal deep venous systems bilaterally. The great saphenous veins appear bila terally patent and compressible segmentally. Ordering Physician: Jorgito Ang V Referring Physician: Jessica Lew M.D. Performed By: Leslie Velazquez RVT
== END | disposition home or self-care (01) ==
LOC: CVS 14:56
PROVIDERS: PCP Internal Medicine; Referring Provider Internal Medicine Pulmonary Disease; Visit Provider Internal Medicine Pulmonary Disease
DX: R60.0 Localized edema (principal)
CPT/HCPCS: 93970

== ENCOUNTER → 2022-04-14 | Outpatient (CLI) | payer MEDICARE, SELFPAY ==
--- NOTE | 2022-04-14 13:59 | ECHOD_ITS ---
Reason For Study: DYSPNEA Procedure This was a 2D Doppler, Color Flow transthoracic echocardiogram. Exam performed in department. Left Ventricle Normal LV size. Left ventricular systolic function is normal. The estimated ejection fraction is 65 %. Stage 1 diastolic dysfunction. No regional wall motion abnormalities noted. Right Ventricle Normal RV size. Normal systolic function. Atria Normal left atrium. Normal right atrium. No doppler evidence for ASD. Mitral Valve There is no mitral annular calcification. Normal mitral valve. Trivial mitral valve insufficiency. Tricuspid Valve Normal tricuspid valve. Trivial tricuspid valve insufficiency. Unable to estimate RV systolic pressure due to insufficient tricuspid regurgitant envelope. Aortic Valve Trisinus/trileaflet aortic valve. Mild focal aortic valve calcification. Pulmonic Valve The pulmonic valve is not well visualized. Great Vessels Normal sized aortic root. Pericardium/Pleural No pericardial effusion. MMode/2D Measurements & Calculations LVIDd: 4.5 cm IVSd: 0.86 cm Ao root diam: 2.5 cm LVIDs: 3.8 cm LVPWd: 0.69 cm RVDd: 3.0 cm FS: 15.7 % LAV(MOD-bp): 37.7 ml LVAd ap4: 24.5 cm2 LVAd ap2: 22.1 cm2 LAV(MOD-bp) Indexed: 21.6 ml/m2 LVLd ap4: 7.4 cm LVLd ap2: 7.0 cm LAV(MOD-sp2): 49.9 ml EDV(MOD-sp4): 66.8 ml EDV(MOD-sp2): 57.6 ml LAV(MOD-sp4): 26.7 ml EDV(sp4-el): 69.4 ml EDV(sp2-el): 58.9 ml LVAs ap4: 13.0 cm2 LVAs ap2: 11.7 cm2 LVLs ap4: 6.1 cm LVLs ap2: 5.7 cm ESV(MOD-sp4): 23.9 ml ESV(MOD-sp2): 19.9 ml ESV(sp4-el): 23.3 ml ESV(sp2-el): 20.2 ml EF(MOD-sp4): 64.2 % EF(MOD-sp2): 65.4 % EF(sp4-el): 66.4 % SV(MOD-sp4): 42.8 ml SV(MOD-sp2): 37.7 ml SV(sp4-el): 46.0 ml LA dimension(2D): 3.6 cm LA A4 area: 12.5 cm2 RA A4 area: 12.2 cm2 Time Measurements MV dec time: 0.21 sec Doppler Measurements & Calculations MV E max papa: 66.8 cm/sec Lat Peak E' Papa: 6.0 cm/sec Med Peak E' Papa: 4.1 cm/sec MV A max papa: 63.8 cm/sec E/E' lat: 11.2 E/E' med: 16.2 MV E/A: 1.0 MV V2 max: 75.7 cm/sec MV dec slope: 323.5 cm/sec2 Ao V2 max: 134.3 cm/sec MV max P.3 mmHg Ao max P.2 mmHg MV V2 mean: 48.6 cm/sec Ao V2 mean: 89.7 cm/sec MV mean P.0 mmHg Ao mean P.7 mmHg MV V2 VTI: 23.6 cm Ao V2 VTI: 29.3 cm LV V1 max: 109.7 cm/sec PA V2 max: 86.1 cm/sec LV V1 max P.8 mmHg PA V2 mean: 62.1 cm/sec LV V1 mean P.8 mmHg LV V1 mean: 79.4 cm/sec LV V1 VTI: 24.2 cm ECHO/Echo Complete Interpretation Summary Left ventricular systolic function is normal. The estimated ejection fraction is 65 %. Trivial mitral valve insufficiency. Trivial tricuspid valve insufficiency. Mild focal aortic valve calcification. Unable to estimate RV systolic pressure due to insufficient tricuspid regurgita nt envelope. Stage 1 diastolic dysfunction. Ordering Physician: Jorgito Ang V Referring Physician: CHEN FARIA Performed By: Gabrielle Centeno RCS
== END | disposition home or self-care (01) ==
LOC: CVS 13:57
PROVIDERS: PCP Internal Medicine; Visit Provider Internal Medicine Pulmonary Disease
DX: R06.00 Dyspnea, unspecified (principal)
CPT/HCPCS: 93306

== ENCOUNTER → 2022-04-20 | Outpatient (CLI) | payer MEDICARE, SELFPAY ==
--- NOTE | 2022-04-20 13:09 | RAD_ITS ---
STUDY: X-RAY - LEFT KNEE REASON FOR EXAM: Female, 77 years old. Pain. TECHNIQUE: 3 view(s) of the knee. COMPARISON: September 10, 2020. FINDINGS: Osteopenia. 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 Stable mild arthrosis of the patellofemoral compartment. Small joint effusion. Normal soft tissues. 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 Small joint effusion. Electronically Signed: Roberto Jimenez, at 15:20 EST ,
== END | disposition home or self-care (01) ==
PROVIDERS: PCP Internal Medicine; Referring Provider Internal Medicine; Visit Provider Internal Medicine
DX: M25.562 Pain in left knee (principal)
CPT/HCPCS: 73562

== ENCOUNTER 2022-05-23 19:18 | Observation (INO) | payer MEDICARE, SELFPAY ==
[2022-05-23] VITALS (10 sets, daily range): BP systolic 104–148; BP diastolic 59–89; PULSE 86–111; RESP 14–20; TEMP 36.7–38.3; O2SAT 85–97; BMI 23.3
--- NOTE | 2022-05-23 20:17 | CT_ITS ---
EXAM: CT ANGIOGRAPHY CHEST WITHOUT AND WITH INTRAVENOUS CONTRAST CLINICAL INDICATION: hypoxic respiratory failure TECHNIQUE: Helically acquired angiography images were obtained of the chest without and with intravenous contrast. This CT exam was performed using one or more of the following dose reduction techniques: automated exposure control, adjustment of the mA and/or kV according to patient size, and/or use of iterative reconstruction technique. This report was created using [employer] report generation technology. MIP reconstructed images were created and reviewed. CONTRAST: IV 100mL Isovue-370 COMPARISON: 01/30/2022 FINDINGS: PULMONARY ARTERIES: Unremarkable. Normal in caliber. No evidence of pulmonary embolism. AORTA: Unremarkable. Normal in caliber. No evidence of dissection. GREAT VESSELS OF AORTIC ARCH: Unremarkable. Normal in caliber. No evidence of dissection. LUNGS AND PLEURAL SPACES: There is consolidation in the right lower lobe compatible with pneumonia. There is also minimal consolidation in the lingula. No mass. No pleural effusion or thickening. HEART: Unremarkable. Heart size is normal. No pericardial effusion. No signs of right heart strain, ratio of right ventricle to left ventricle measures less than 1. MEDIASTINUM: Unremarkable. No mediastinal or hilar adenopathy. Esophagus is unremarkable. No hiatal hernia. THYROID: Unremarkable. No thyroid lesions. BONES/JOINTS: Unremarkable. No suspicious lytic or blastic abnormality. LYMPH NODES: There is minimal mediastinal adenopathy which is likely reactive or inflammatory. Largest node is in the pretracheal space and measures 1.4 x 2.1 cm. KIDNEYS AND URETERS: There are peripelvic cysts of the kidneys. CT/CTA Chest W/WO Contrast IMPRESSION: 1. No evidence of pulmonary embolus. 2. Lingular and right lower lobe consolidation which may represent pneumonia. Electronically Signed: Jerzy Torre MD at 22:48 EST ,
[2022-05-23] MEDS: 0.9% Normal Saline 1,000 ML 999 ML IV (20:32)
--- NOTE | 2022-05-23 20:40 | EDS_ITS ---
HPI HPI - URI History of Present Illness Chief Complaint: Shortness of Breath Narrative Narrative: 77-year-old female presented cough, chills, body aches x3 days. She does not think she had a home. She does states that she has shortness of breath. She has a history of PE in the past. This was during the time she had COVID-19. She states she only has some mild chest wall pain in the right upper right chest and it is only when she coughs. She does not have any sharp pleuritic pain. No nausea, vomiting, diarrhea. No abdominal pain. ROS ROS ED Constitutional Constitutional ED: Reports chills and subjective Eyes Eyes: Denies change in vision or diplopia ENT ENT ED: Reports rhinorrhea; Denies sore throat Cardiovascular Cardiovascular: Reports chest pain Respiratory/Chest Respiratory/Chest: Reports cough, dyspnea and dyspnea on exertion Gastrointestinal Gastrointestinal: Denies abdominal pain, nausea or vomiting Genitourinary Genitourinary ED: Denies dysuria Musculoskeletal Musculoskeletal: Reports myalgias Integumentary Denies abscess or Abrasions Neurologic Neurologic: Reports headache(s); Denies paresthesias or weakness Psychiatric Psychiatric: Denies anxiety or depression [facility] Medical History COPD (chronic obstructive pulmonary disease) HTN (hypertension) Home Medications atorvastatin 20 mg tablet 20 mg PO QHS 12/08/16 [History Last Taken Unknown] budesonide-formoterol HFA 160 mcg-4.5 mcg/actuation aerosol inhaler (Symbicort) 2 puff inhalation BID 12/08/16 [History Last Taken Unknown] levothyroxine 75 mcg tablet 75 mcg PO DAILY 12/08/16 [History Last Taken Unknown] sertraline 50 mg tablet 50 mg PO DAILY 12/08/16 [History Last Taken Unknown] albuterol sulfate 90 mcg/actuation aerosol inhaler 2 puff inhalation Q4H PRN PRN Shortness Of Breath 06/09/21 [History Last Taken Unknown] alendronate 70 mg tablet 70 mg PO QWEEK 06/09/21 [History Last Taken Unknown] losartan 50 mg tablet 50 mg DAILY 06/09/21 [History Last Taken Unknown] ondansetron 4 mg disintegrating tablet 4 mg PO Q6H PRN nausea and vomiting #20 tabs 12/26/21 [Rx Last Taken Unknown] dextromethorphan-benzocaine 5 mg-7.5 mg lozenges (Sore Throat and Cough) 1 gage PO Q4H PRN sore throat #18 ea 12/30/21 [Rx Last Taken Unknown] Allergy/AdvReac Type Severity Reaction Status Date / Time codeine Allergy Angioedema Verified 05/23/22 19:22 Penicillins [PCN] Allergy Rash Verified 05/23/22 19:22 Sulfa (Sulfonamide AdvReac Unknown Verified 05/23/22 19:22 Antibiotics) Social History Smoking Status: Former smoker substance use type: does not use EXAM Physical Exam Const Vital Signs: 05/23/22 19:20 05/23/22 19:34 05/23/22 19:39 Temperature 101 F H 101 F H Temperature Source Temporal Oral Pulse Rate 107 H 111 H Respiratory Rate 20 H 20 H Respiratory Effort Normal Respiratory Depth Normal Respiratory Pattern Normal Blood Pressure 148/59 H 144/60 H Blood Pressure Mean 88 88 Pulse Ox 85 92 Oxygen Delivery Method Room Air Room Air Room Air Oxygen Flow Rate (L/min) 05/23/22 20:35 05/23/22 20:19 05/23/22 20:22 Temperature 99.8 F H 99.8 F H Temperature Source Oral Oral Pulse Rate 89 87 Respiratory Rate 20 H 20 H Respiratory Effort Respiratory Depth Respiratory Pattern Blood Pressure 125/89 H 125/89 H Blood Pressure Mean 101 101 Pulse Ox 92 93 Oxygen Delivery Method Nasal Cannula Nasal Cannula Nasal Cannula Oxygen Flow Rate (L/min) 3 3 3 05/23/22 21:00 05/23/22 21:00 Temperature 99.4 F H 99.4 F H Temperature Source Oral Oral Pulse Rate 87 87 Respiratory Rate 18 18 Respiratory Effort Respiratory Depth Respiratory Pattern Blood Pressure 132/72 H 132/72 H Blood Pressure Mean 92 92 Pulse Ox 95 95 Oxygen Delivery Method Nasal Cannula Nasal Cannula Oxygen Flow Rate (L/min) 3 3 Positive well nourished General Appearance ED: NAD; Negative for pallor HEENT Reports moist mucous membranes normocephalic and atraumatic Throat: posterior oropharynx normal Eyes PERRL and EOMs intact bilaterally Neck no lymphadenopathy, supple and no meningeal signs Resp Auscultation: Negative for rales, rhonchi or wheezes Cardio Rate: tachycardic Rhythm: regular rhythm GI non-tender Back/Spine no CVA tenderness Neuro oriented x3 and CN's II-XII intact bilaterally Sensorium / Orientation: alert Motor Exam: strength 5/5 throughout Psych mental status grossly normal Skin General Skin Exam: Negative for jaundice or pallor MDM MDM MDM Narrative Medical decision making narrative: Patient with viral symptoms for the last 3 days. On arrival she is 85% on room air. She states she has not required oxygen since she had PEs and COVID-19. Patient was placed on 2 L nasal cannula. She is also febrile with a temperature of 101 ?F tachycardic and tachypneic. Septic work-up was pursued. Patient given a liter of IV fluids. EKG on my interpretation shows a sinus tachycardia with a ventricular rate of 102 bpm without signs of ischemic change or dysrhythmia. The medical record shows that she had PEs back in May but she is currently no longer taking Eliquis. She shows a leukocytosis of 16.2 with a left shift. Hemoglobin slightly low at 10.1, but she has seem to waver between 10 and 11 over the last few months. Lactic acid within normal limits she does not report any black or bloody stools. She is no longer anticoagulated and she is actually hypertensive and not hypotensive. She was slightly tachycardic but she was febrile. After being treated with Tylenol her heart rate came at 87. Respiratory 18 on 3 L of nasal cannula. Urinalysis negative for infection. Chest x-ray on my interpretation concerning for bilateral pneumonia. I am awaiting the radiologist interpretation of this. I did obtain a CTA of the chest to the patient's history of PE and it does look like she has bilateral pneumonia on her CTA. Patient covered with Rocephin and azithromycin. Rapid COVID and influenza are negative. Patient was discussed with hospitalist for [facility] given that she is hypoxic. Impression: 1. Leukocytosis 2. Bilateral pneumonia 3. Anemia 4. Febrile illness Lab Data Attestation: I reviewed the patient's lab results. Labs: Laboratory Results - last 24 hr 05/23/22 05/23/22 05/23/22 20:45 20:45 20:45 WBC 16.2 H RBC 3.13 L Hgb 10.1 L Hct 30.7 L MCV 98.1 MCH 32.3 H MCHC 32.9 RDW Std Deviation 46.4 H RDW Coeff of Jeanna 13.1 Plt Count 222 MPV 9.3 Immature Gran % (Auto) 0.400 Neut % (Auto) 91.4 H Lymph % (Auto) 3.7 L Harper % (Auto) 4.4 Eos % (Auto) 0.0 Baso % (Auto) 0.1 Absolute Neuts (auto) 14.8 H Absolute Lymphs (auto) 0.60 L Nucleated RBC % 0 Differential Comment SCANNED PT 14.4 INR 1.2 APTT 27.9 Sodium 138 Potassium 4.4 Chloride 106 Carbon Dioxide 26.0 Anion Gap 6 BUN 21 H Creatinine 1.02 Estim Creat Clear Calc 42.55 Est GFR (MDRD) Af Amer 67 Est GFR (MDRD) Non-Af 56 L BUN/Creatinine Ratio 20.6 H Glucose 113 H Lactic Acid Calcium 8.3 L Total Bilirubin 0.70 AST 14 L ALT 14 Alkaline Phosphatase 53 Troponin I High Sens 8 Total Protein 6.7 Albumin 3.2 Globulin 3.5 Albumin/Globulin Ratio 0.9 Urine Color Urine Clarity Urine pH Ur Specific [place] Urine Protein Urine Glucose (UA) Urine Ketones Urine Occult Blood Urine Nitrite Urine Bilirubin Urine Urobilinogen Ur Leukocyte Esterase Urine RBC Urine WBC Ur Squamous Epith Cells Urine Bacteria Urine Mucus 05/23/22 05/23/22 20:45 21:00 WBC RBC Hgb Hct MCV MCH MCHC RDW Std Deviation RDW Coeff of Jeanna Plt Count MPV Immature Gran % (Auto) Neut % (Auto) Lymph % (Auto) Harper % (Auto) Eos % (Auto) Baso % (Auto) Absolute Neuts (auto) Absolute Lymphs (auto) Nucleated RBC % Differential Comment PT INR APTT Sodium Potassium Chloride Carbon Dioxide Anion Gap BUN Creatinine Estim Creat Clear Calc Est GFR (MDRD) Af Amer Est GFR (MDRD) Non-Af BUN/Creatinine Ratio Glucose Lactic Acid 0.7 Calcium Total Bilirubin AST ALT Alkaline Phosphatase Troponin I High Sens Total Protein Albumin Globulin Albumin/Globulin Ratio Urine Color Yellow Urine Clarity Clear Urine pH 5.0 Ur Specific [place] 1.020 Urine Protein 30 H Urine Glucose (UA) Normal Urine Ketones 50 H Urine Occult Blood Negative Urine Nitrite Negative Urine Bilirubin Negative Urine Urobilinogen Normal Ur Leukocyte Esterase 25 H Urine RBC 0 SEEN Urine WBC 0-5 SEEN Ur Squamous Epith Cells 0 SEEN Urine Bacteria RARE Urine Mucus 0 SEEN Discharge Plan Triage Chief Complaint: Shortness of Breath ED Provider: Chace Fried Dx/Rx/DC Orders Prescriptions: No Action atorvastatin 20 MG tablet 20 mg PO QHS levothyroxine 75 MCG tablet 75 mcg PO DAILY sertraline 50 MG tablet 50 mg PO DAILY Label Comments: budesonide-formoterol [Symbicort] 1 INHALER inhaler 2 puff inhalation BID Label Comments: losartan 50 mg tablet 50 mg DAILY Label Comments: Take 1 tablet by mouth daily alendronate 70 mg tablet 70 mg PO QWEEK albuterol sulfate 90 mcg/actuation HFA aerosol inhaler 2 puff INHALATION Q4H PRN PRN (Reason: Shortness Of Breath) Label Comments: Inhale 2 Puffs as instructed every 4 hours as needed for wheezing/shortness of breath. ondansetron 4 mg tablet,disintegrating 4 mg PO Q6H PRN (Reason: nausea and vomiting) Qty: 20 0RF Sore Throat and Cough 5-7.5 mg lozenge 1 gage PO Q4H PRN (Reason: sore throat) Qty: 18 0RF Primary Care Provider: Jessica Lew Referrals: Jessica Lew DO [Primary Care Provider] -
[2022-05-23] MEDS: Acetaminophen 500 MG Tablet 1000 MG PO (21:08)
[2022-05-23 21:12] LABS: Mucous, Urine 0 SEEN /hpf (<or=2+); Red Blood Cells-Urine 0 SEEN /hpf (0-5); Squamous Epithelial Cells - UA 0 SEEN /hpf (5-10)
[2022-05-23 21:18] LABS: Absolute Neutrophil Count 14.8 X10^3/uL (2.0-7.7); Basophil# 0.02 X10^3/uL; Basophil% 0.1 % (0-1); Hematocrit 30.7 % (37-47); Hemoglobin 10.1 g/dL (12.0-15.0); Lymphocyte % 3.7 % (19-41); Mean Corp Hgb Conc 32.9 g/dL (32-36); Mean Corpuscular Hgb 32.3 pg (27.0-32.0); Mean Corpuscular Volume 98.1 fL (81-99); Mean Platelet Vol. 9.3 fl (6.2-12.0); Monocyte# 0.71 X10^3/uL; Monocyte% 4.4 % (0-10); NRBC Flagged by Analyzer 0 % (0-5); Neutrophil # 14.84 X10^3/uL (2.7-7.7); Neutrophil % 91.4 % (47-70); POSITIVE DIFFERENTIAL YES; Platelet Count 222 K/mm3 (150-450); RBC Distribution Width CV 13.1 % (11.6-14.6); RBC Distribution Width SD 46.4 fl (35.1-43.9); Red Blood Count 3.13 M/mm3 (4.2-5.4); White Blood Count 16.2 K/mm3 (4.4-11.0)
[2022-05-23 21:19] LABS: Differential Indicated SCAN CRITERIA MET
[2022-05-23 21:25] LABS: Color, Urine Yellow (Yellow); Glucose, Dipstick Normal (Normal); Ketone-Dipstick 50 mg/dl (Negative); Leukocyte Esterase-Dipstick 25 /ul (Negative); Nitrite-Dipstick Negative (Negative); Occult Blood-Urine Negative /ul (Negative); Protein-Dipstick 30 mg/dl (Negative); Urine Bilirubin Dipstick Negative (Negative); Urine Clarity Clear (Clear); Urine Urobilinogen Normal (Normal)
[2022-05-23 21:27] LABS: International Normalized Ratio 1.2; Prothrombin Time (Protime)PT. 14.4 SECONDS (11.7-14.9)
[2022-05-23 21:28] LABS: Partial Thromboplast Time 27.9 Seconds (24.1-36.2)
[2022-05-23 21:35] LABS: Bacteria RARE /hpf (None Seen); White Blood Cells 0-5 SEEN /hpf (0-5)
[2022-05-23 21:39] LABS: Lactic Acid 0.7 mmol/L (0.4-1.9)
[2022-05-23 21:41] LABS: Differential Comment SCANNED
[2022-05-23 21:42] LABS: ALB/GLOB Ratio 0.9 RATIO (0.9-2.4); AST(SGOT) 14 U/L (15-37); Alanine Aminotransfer ALT/SGPT 14 U/L (13-56); Albumin, Serum 3.2 g/dL (3.2-5.0); Alkaline Phosphatase 53 U/L (45-117); Anion Gap 6 (5-15); BUN 21 mg/dL (7-18); BUN/Creat Ratio 20.6 RATIO (10-20); Calcium,Total 8.3 mg/dL (8.5-10.1); Chloride 106 mmol/L (98-107); Creatinine, Serum 1.02 mg/dL (0.55-1.02); EST Glomerular Filtration Rate 56 mL/min (>60); Est Glom Filt Rate - Afr Amer 67 mL/min (>60); Estimated Creatinine Clearance 42.55 ml/min; Globulin 3.5 g/dL (2.2-4.2); Glucose 113 mg/dL (74-106); Potassium 4.4 mmol/L (3.5-5.1); Protein, Total 6.7 g/dL (6.4-8.2); Sodium Level 138 mmol/L (136-145); Troponin-I HS 8 pg/mL (3.0-54.0)
--- NOTE | 2022-05-23 21:50 | RAD_ITS ---
EXAM: XR CHEST, 1 VIEW CLINICAL INDICATION: dyspnea TECHNIQUE: Frontal view of the chest. This report was created using [employer] report generation technology. COMPARISON: 12/30/2021 FINDINGS: LUNGS AND PLEURAL SPACES: There is right lower lobe airspace disease which may represent early pneumonia. No pneumothorax. No effusion. HEART: Unremarkable. Cardiac silhouette not enlarged. MEDIASTINUM: Central airways and mediastinal contour are unremarkable. BONES/JOINTS: Unremarkable. SOFT TISSUES: Unremarkable. RAD/Chest 1 View (Portable) IMPRESSION: Right lower lobe airspace disease which may represent early pneumonia. Electronically Signed: Jerzy Torre MD at 22:42 EST ,
--- NOTE | 2022-05-23 22:15 | HP.PCM.HOS_ITS ---
HPI - General General Date of Admission: 05/23/22 Date of Service: 05/23/22 Chief Complaint: Cough, dyspnea, worsening. HPI Narrative The patient is a 77 y/o F w/ PMHx: Hx VTE, Chronic anemia, COPD, Former tobacco use, HTN, HLD, Hypothyroidism, DAI on CPAP q HS, Anxiety and Depression who presents to the [facility] [place] ED on 05/23/22 with history of nonproductive cough, chills, body aches ongoing for 3 days with associated dyspnea with occasional pleuritic discomfort primarily with deep inspiratory effort and coughing fits with no associated specific fevers, nausea, emesis or abdominal pain but she does report one loose stool a.m. on day of presentation otherwise none since however given ongoing symptoms prompted ED evaluation. Patient also reports occasionally wheezing. Work-up in the ED included T101, heart rate 107, BP 148/59, respirat ory rate 20, 85% on room air eventually improving to 93% on 3 L nasal cannula, CBC with WC 16.2, hemoglobin 10.1, MCV 98.1, platelet 222 with left shift and lymphopenia, unremarkable coags, CMP with BUN/creatinine 21/1.02, glucose 113, unremarkable hepatic profile, lactic acid 0.7, urinalysis with specific IV 1.020, protein 30, ketone 50, negative nitrite, leukocyte Estrace 25 otherwise UA unremarkable, urine culture pending per ED, blood culture x2 pending per ED, rapid SARS and influenza antigen negative chest x-ray with right lower lobe airspace disease possibly early pneumonia, CTPA with no evidence of pulmonary emboli, lingular and right lower lobe consolidation concerning for pneumonia. In the ED patient ministered normal saline bolus, Tylenol, albuterol, Rocephin, azithromycin and DuoNeb therapy as well as Solu-Medrol 125 mg IV x1. [facility] Medical History (Updated 05/24/22 @ 03:[address] Karlie Vásquez MD) Anxiety and depression Chronic anemia COPD (chronic obstructive pulmonary disease) COVID-19 Depression Former tobacco use History of venous thromboembolism HLD (hyperlipidemia) HTN (hypertension) DAI on CPAP Home Medications atorvastatin 20 mg tablet 20 mg PO QHS cholesterol 12/08/16 [History Last Taken 05/21/22] budesonide-formoterol HFA 160 mcg-4.5 mcg/actuation aerosol inhaler (Symbicort) 2 puff inhalation BID asthma 12/08/16 [History Last Taken 05/23/22] levothyroxine 75 mcg tablet 75 mcg PO DAILY thyroid 12/08/16 [History Last Taken 05/23/22] sertraline 50 mg tablet 50 mg PO DAILY depression 12/08/16 [History Last Taken 05/23/22] albuterol sulfate 90 mcg/actuation aerosol inhaler 2 puff inhalation Q4H PRN PRN Shortness Of Breath 06/09/21 [History Last Taken 05/23/22] alendronate 70 mg tablet 70 mg PO QWEEK unsure 06/09/21 [History Last Taken 05/22/22] losartan 50 mg tablet 50 mg DAILY bp 06/09/21 [History Last Taken 05/23/22] ondansetron 4 mg disintegrating tablet 4 mg PO Q6H PRN nausea and vomiting #20 tabs 12/26/21 [Rx Last Taken Unknown] dextromethorphan-benzocaine 5 mg-7.5 mg lozenges (Sore Throat and Cough) 1 gage PO Q4H PRN sore throat #18 ea 12/30/21 [Rx Last Taken Unknown] trazodone 100 mg tablet 200 mg PO QHS PRN Sleep 05/24/22 [History Last Taken 05/23/22] Allergy/AdvReac Type Severity Reaction Status Date / Time codeine Allergy Angioedema Verified 05/23/22 19:22 Penicillins [PCN] Allergy Rash Verified 05/23/22 19:22 Sulfa (Sulfonamide AdvReac Unknown Verified 05/23/22 19:22 Antibiotics) Family History (Updated 05/24/22 @ 03:[address] Karlie Vásquez MD) Mother Diabetes Father Asbestosis Passed when patient was 4 secondary to complications TB with history of notable asbestosis exposure concurrently. Tuberculosis Passed when patient was 4 secondary to complications TB with history of notable asbestosis exposure concurrently. Surgical History (Updated 05/24/22 @ 03:[address] Karlie Vásquez MD) History of hand surgery Social History (Updated 05/24/22 @ 03:[address] Karlie Vásquez MD) Smoking Status: Former smoker how long ago did patient quit smoking: Quit ~ 40 yrs prior, smoked ~ 1/2 ppd since teen until quit. alcohol intake: current alcohol intake frequency: holidays/special occasions only substance use type: does not use ROS ROS Narrative Admission Review of Systems: CONSTITUTIONAL: No weight loss, + fever, chills, weakness or fatigue. HEENT: Eyes: No visual loss, blurred vision, double vision or yellow sclerae. Ears, Nose, Throat: No hearing loss, sneezing, congestion, runny nose or sore throat. SKIN: No rash or itching, lesions, wounds. CARDIOVASCULAR: + Mild pleuritic discomfort, No palpitations, edema, orthopnea, syncopal events. RESPIRATORY: + shortness of breath, cough without marked sputum, wheezing, No hemoptysis. GASTROINTESTINAL: + Diarrhea, No anorexia, nausea, vomiting, abdominal pain, melena, BRBPR. GENITOURINARY: No dysuria, frequency, urgency or retention. NEUROLOGICAL: No headache, dizziness, syncope, paralysis, ataxia, numbness or tingling in the extremities, focal weakness, change in bowel or bladder control, seizure. MUSCULOSKELETAL: + muscle, back pain, joint pain or stiffness. HEMATOLOGIC: + anemia, bleeding or bruising. LYMPHATICS: No enlarged nodes. No history of splenectomy. PSYCHIATRIC: + history of depression or anxiety. ENDOCRINOLOGIC: No reports of sweating, cold or heat intolerance. No polyuria or polydipsia. ALLERGIES: + history of angioedema. Vital Signs Vital Signs Vital Signs: 05/23/22 19:20 05/23/22 19:34 05/23/22 19:39 Temperature 101 F H 101 F H Temperature Source Temporal Oral Pulse Rate 107 H 111 H Respiratory Rate 20 H 20 H Respiratory Effort Normal Respiratory Depth Normal Respiratory Pattern Normal Blood Pressure 148/59 H 144/60 H Blood Pressure Mean 88 88 Pulse Ox 85 92 Oxygen Delivery Method Room Air Room Air Room Air Oxygen Flow Rate (L/min) 05/23/22 20:35 05/23/22 20:19 05/23/22 20:22 Temperature 99.8 F H 99.8 F H Temperature Source Oral Oral Pulse Rate 89 87 Respiratory Rate 20 H 20 H Respiratory Effort Respiratory Depth Respiratory Pattern Blood Pressure 125/89 H 125/89 H Blood Pressure Mean 101 101 Pulse Ox 92 93 Oxygen Delivery Method Nasal Cannula Nasal Cannula Nasal Cannula Oxygen Flow Rate (L/min) 3 3 3 05/23/22 21:00 05/23/22 21:00 Temperature 99.4 F H 99.4 F H Temperature Source Oral Oral Pulse Rate 87 87 Respiratory Rate 18 18 Respiratory Effort Respiratory Depth Respiratory Pattern Blood Pressure 132/72 H 132/72 H Blood Pressure Mean 92 92 Pulse Ox 95 95 Oxygen Delivery Method Nasal Cannula Nasal Cannula Oxygen Flow Rate (L/min) 3 3 Weight Weight: 145 lb Body Mass Index (BMI) 23.3 Physical Exam Narrative Physical Examination: General: Awake, alert, oriented x 3 and cooperative, seated upright in the ED bed, fatigued appearing. Skin: Normal color, normal turgor, no icterus, no cyanosis. HEENT: AT/NC, EOMI, PERRLA, mildly dry MM, no carotid bruits or JVD noted. Lungs: Notably diminished, greater bases, right greater than left, mildly rhonchorous, soft end expiratory wheeze diffusely, no evidence of any distress. Heart: Mildly tachycardic with regular rhythm; no gallop, rub audible. Abdomen: Soft, NTTP, ND, distant normal BS, no HSM. Extremities: No cyanosis, clubbing, or edema. Neurological: Patient awake, alert, oriented as noted, cognitive function intact; pupils equally reactive to light and accommodation, cranial nerves II- XII grossly normal, moving all 4 extremities, no focal deficits, strength moderately global decrease secondary to acute presentation. Psychiatric: Affect appears fatigued, ill-appearing, no acute evidence of depressive or anxiety feelings but underlying history. Results Lab / Micro Data Result Diagrams: 05/23/22 20:45 05/23/22 20:45 Labs: Laboratory Results - last 24 hr 05/23/22 20:45: WBC 16.2 H, RBC 3.13 L, Hgb 10.1 L, Hct 30.7 L, MCV 98.1, MCH 32.3 H, MCHC 32.9, RDW Std Deviation 46.4 H, RDW Coeff of Jeanna 13.1, Plt Count 222, MPV 9.3, Immature Gran % (Auto) 0.400, Neut % (Auto) 91.4 H, Lymph % (Auto) 3.7 L, Nelson % (Auto) 4.4, Eos % (Auto) 0.0, Baso % (Auto) 0.1, Absolute Neuts (auto) 14.8 H, Absolute Lymphs (auto) 0.60 L, Nucleated RBC % 0, Differential Comment SCANNED 05/23/22 20:45: PT 14.4, INR 1.2, APTT 27.9 05/23/22 20:45: Sodium 138, Potassium 4.4, Chloride 106, Carbon Dioxide 26.0, Anion Gap 6, BUN 21 H, Creatinine 1.02, Estim Creat Clear Calc 42.55, Est GFR (MDRD) Af Amer 67, Est GFR (MDRD) Non-Af 56 L, BUN/Creatinine Ratio 20.6 H, Glucose 113 H, Calcium 8.3 L, Total Bilirubin 0.70, AST 14 L, ALT 14, Alkaline Phosphatase 53, Troponin I High Sens 8, Total Protein 6.7, Albumin 3.2, Globulin 3.5, Albumin/Globulin Ratio 0.9 05/23/22 20:45: Lactic Acid 0.7 05/23/22 21:00: Urine Color Yellow, Urine Clarity Clear, Urine pH 5.0, Ur Specific [place] 1.020, Urine Protein 30 H, Urine Glucose (UA) Normal, Urine Ketones 50 H, Urine Occult Blood Negative, Urine Nitrite Negative, Urine Bilirubin Negative, Urine Urobilinogen Normal, Ur Leukocyte Esterase 25 H, Urine RBC 0 SEEN, Urine WBC 0-5 SEEN, Ur Squamous Epith Cells 0 SEEN, Urine Bacteria RARE, Urine Mucus 0 SEEN Micro: Microbiology 05/23/22 21:09 Nasal Secretion SARS-CoV-2 & FLU Antigen (Rapid) - Final Assessment & Plan Assessment/Plan (1) Pneumonia: PLAN: Plan The patient is a 77 y/o F w/ PMHx: Hx VTE, Chronic anemia, COPD, Former tobacco use, HTN, HLD, Hypothyroidism, DAI on CPAP q HS, Anxiety and Depression who presents to the [facility] [place] ED on 05/23/22 with history of nonproductive cough, chills, body aches ongoing for 3 days with associated dyspnea with occasional pleuritic discomfort primarily with deep inspiratory effort and coughing fits with no associated specific fevers, nausea, emesis or abdominal pain but she does report one loose stool AM on day of presentation otherwise none since however given ongoing symptoms prompted ED evaluation. #1. Acute Hypoxia secondary to Acute RLL Community Acquired Pneumonia and Acute on Chronic COPD Exacerbation: Will admit to MS, maintain on oxygen with wean as tolerated to room air, continue ATC duonebs, PRN albuterol, maintained on IV Rocephin and Azithromycin, maintain on IV solumedrol, HOB, IS parameters w/ pending sputum cultures, full respiratory viral panel and urine antigens. Bld cx x 2 obtained in the ED. #2. Chronic normocytic anemia: Admission hemoglobin 10.1, baseline appears primarily 10-11, stable, continue to trend and work-up outpatient. #3. Hypertension: Continue home regimen including losartan, PRN hydralazine. #4. Hyperlipidemia: We will continue patient on statin therapy. #5. Hypothyroidism: We will continue patient on levothyroxine regimen. #6. Anxiety and depression: We will continue patient home sertraline and trazodone regimen. #7. Former tobacco use: Encourage continued tobacco cessation. #8. History of VTE: We will continue patient chemoprophylaxis as noted. #9. DAI: CPAP nightly. #10. DVT prophylaxis: SCDs, Lovenox. Charges/Coding Visit Charges Inpatient E&M: 94302 Init Hosp L3
[2022-05-23] MEDS: Ipratropium/Albuterol Sulfate 3 ML AMPUL.NEB INHALATION (22:18)
[2022-05-23] MEDS: Albuterol 2.5 MG/3 ML VIAL.NEB. INHALATION (22:18)
[2022-05-23] MEDS: Azithromycin 250 MG Tablet 500 MG PO (22:19)
[2022-05-23] MEDS: Ceftriaxone 1 GM/50 ML BAG IV (22:32)
[2022-05-23 22:34] LABS: Procalcitonin 0.26 ng/mL (0.00-0.09)
[2022-05-23] MEDS: MethylPREDNISolone 125 MG/2 ML Vial IV (22:42)
[2022-05-24] VITALS (13 sets, daily range): BP systolic 107–139; BP diastolic 51–62; PULSE 62–93; RESP 16–22; TEMP 36.2–36.8; O2SAT 94–99; BMI 23.2
[2022-05-24] MEDS: 0.9% Normal Saline 1,000 ML 100 ML IV ×2 (00:40→11:05)
[2022-05-24] MEDS: 0.9% Saline Lock 10 ML Syringe IV ×3 (05:44→21:53)
[2022-05-24] MEDS: Levothyroxine 75 MCG Tablet PO (05:44)
[2022-05-24 06:09] LABS: Absolute Neutrophil Count 14.5 X10^3/uL (2.0-7.7); Basophil# 0.02 X10^3/uL; Basophil% 0.1 % (0-1); Hematocrit 30.6 % (37-47); Lymphocyte % 3.9 % (19-41); Mean Corp Hgb Conc 32.7 g/dL (32-36); Mean Corpuscular Hgb 32.6 pg (27.0-32.0); Mean Corpuscular Volume 99.7 fL (81-99); Mean Platelet Vol. 9.1 fl (6.2-12.0); Monocyte# 0.17 X10^3/uL; Monocyte% 1.1 % (0-10); NRBC Flagged by Analyzer 0 % (0-5); Neutrophil # 14.53 X10^3/uL (2.7-7.7); Neutrophil % 94.5 % (47-70); POSITIVE DIFFERENTIAL YES; Platelet Count 235 K/mm3 (150-450); RBC Distribution Width CV 13.1 % (11.6-14.6); RBC Distribution Width SD 47.9 fl (35.1-43.9); Red Blood Count 3.07 M/mm3 (4.2-5.4); White Blood Count 15.4 K/mm3 (4.4-11.0)
[2022-05-24 06:17] LABS: Differential Indicated SCAN CRITERIA MET
[2022-05-24 06:34] LABS: ALB/GLOB Ratio 0.7 RATIO (0.9-2.4); AST(SGOT) 16 U/L (15-37); Alanine Aminotransfer ALT/SGPT 14 U/L (13-56); Albumin, Serum 2.9 g/dL (3.2-5.0); Alkaline Phosphatase 54 U/L (45-117); Anion Gap 4 (5-15); BUN 20 mg/dL (7-18); BUN/Creat Ratio 19.2 RATIO (10-20); Calcium,Total 8.2 mg/dL (8.5-10.1); Chloride 112 mmol/L (98-107); Creatinine, Serum 1.04 mg/dL (0.55-1.02); EST Glomerular Filtration Rate 54 mL/min (>60); Est Glom Filt Rate - Afr Amer 66 mL/min (>60); Estimated Creatinine Clearance 41.73 ml/min; Globulin 3.9 g/dL (2.2-4.2); Glucose 183 mg/dL (74-106); Potassium 5.4 mmol/L (3.5-5.1); Protein, Total 6.8 g/dL (6.4-8.2); Sodium Level 142 mmol/L (136-145)
[2022-05-24 06:56] LABS: Macrocytosis RARE
[2022-05-24] MEDS: Ipratropium/Albuterol Sulfate 3 ML AMPUL.NEB INHALATION ×4 (07:43→20:00)
[2022-05-24] MEDS: Ensure Plus High Protein 120 ML LIQUID PO ×3 (10:58→21:51)
[2022-05-24] MEDS: Sertraline 50 MG Tablet PO (10:59)
[2022-05-24] MEDS: Enoxaparin 40 MG/0.4 ML Syringe SC (10:59)
[2022-05-24] MEDS: Losartan Potassium 50 MG Tablet PO (10:59)
--- NOTE | 2022-05-24 14:34 | PCM.PN.HOSP ---
Subjective Subjective Reports she is feeling little bit better this a.m. Has a slight cough but no other complaints at this time. Was found to have parainfluenza Objective Data Objective Data Vital Signs: Vital Signs Temp Pulse Resp BP Pulse Ox O2 Del Method O2 Flow Rate 97.5 F L 66 20 H 127/51 H 94 Nasal Cannula 3 05/24/22 10:55 05/24/22 10:55 05/24/22 12:01 05/24/22 10:55 05/24/22 10:55 05/24/22 11:30 05/24/22 11:30 Oxygen Flow Rate (L/min) 3 Oxygen Delivery Method Nasal Cannula Weight: 64.9 kg Body Mass Index (BMI) 23.2 Intake & Output: Intake and Output for Last 24 Hours 05/22/22 05/23/22 05/24/22 23:59 23:59 23:59 Intake Total 1000 / 1000 1050 / 1050 Balance 1000 / 1000 1050 / 1050 Lab / Micro Data Result Diagrams: 05/24/22 05:13 05/24/22 05:13 Labs: Laboratory Results - last 24 hr 05/23/22 20:45: WBC 16.2 H, RBC 3.13 L, Hgb 10.1 L, Hct 30.7 L, MCV 98.1, MCH 32.3 H, MCHC 32.9, RDW Std Deviation 46.4 H, RDW Coeff of Jeanna 13.1, Plt Count 222, MPV 9.3, Immature Gran % (Auto) 0.400, Neut % (Auto) 91.4 H, Lymph % (Auto) 3.7 L, [place] % (Auto) 4.4, Eos % (Auto) 0.0, Baso % (Auto) 0.1, Absolute Neuts (auto) 14.8 H, Absolute Lymphs (auto) 0.60 L, Nucleated RBC % 0, Differential Comment SCANNED 05/23/22 20:45: PT 14.4, INR 1.2, APTT 27.9 05/23/22 20:45: Sodium 138, Potassium 4.4, Chloride 106, Carbon Dioxide 26.0, Anion Gap 6, BUN 21 H, Creatinine 1.02, Estim Creat Clear Calc 42.55, Est GFR (MDRD) Af Amer 67, Est GFR (MDRD) Non-Af 56 L, BUN/Creatinine Ratio 20.6 H, Glucose 113 H, Calcium 8.3 L, Total Bilirubin 0.70, AST 14 L, ALT 14, Alkaline Phosphatase 53, Troponin I High Sens 8, Total Protein 6.7, Albumin 3.2, Globulin 3.5, Albumin/Globulin Ratio 0.9 05/23/22 20:45: Lactic Acid 0.7 05/23/22 21:00: Urine Color Yellow, Urine Clarity Clear, Urine pH 5.0, Ur Specific [place]ote 1.020, Urine Protein 30 H, Urine Glucose (UA) Normal, Urine Ketones 50 H, Urine Occult Blood Negative, Urine Nitrite Negative, Urine Bilirubin Negative, Urine Urobilinogen Normal, Ur Leukocyte Esterase 25 H, Urine RBC 0 SEEN, Urine WBC 0-5 SEEN, Ur Squamous Epith Cells 0 SEEN, Urine Bacteria RARE, Urine Mucus 0 SEEN 05/23/22 22:05: Procalcitonin 0.26 H 05/24/22 05:13: WBC 15.4 H, RBC 3.07 L, Hgb 10.0 L, Hct 30.6 L, MCV 99.7 H, MCH 32.6 H, MCHC 32.7, RDW Std Deviation 47.9 H, RDW Coeff of Jeanna 13.1, Plt Count 235, MPV 9.1, Immature Gran % (Auto) 0.400, Neut % (Auto) 94.5 H, Lymph % (Auto) 3.9 L, [place] % (Auto) 1.1, Eos % (Auto) 0.0, Baso % (Auto) 0.1, Absolute Neuts (auto) 14.5 H, Absolute Lymphs (auto) 0.60 L, Nucleated RBC % 0, Macrocytosis RARE 05/24/22 05:13: Sodium 142, Potassium 5.4 H, Chloride 112 H, Carbon Dioxide 26.0, Anion Gap 4 L, BUN 20 H, Creatinine 1.04 H, Estim Creat Clear Calc 41.73, Est GFR (MDRD) Af Amer 66, Est GFR (MDRD) Non-Af 54 L, BUN/Creatinine Ratio 19.2, Glucose 183 H, Calcium 8.2 L, Total Bilirubin 0.50, AST 16, ALT 14, Alkaline Phosphatase 54, Total Protein 6.8, Albumin 2.9 L, Globulin 3.9, Albumin/Globulin Ratio 0.7 L Micro: Microbiology 05/23/22 21:00 Urine, Clean Catch Urine Culture - Preliminary Culture exhibits no growth. 05/23/22 22:23 Mucosa - Nasopharyngeal Respiratory Panel (PCR) - Final Parainfluenza 1 05/23/22 Unknown Urine, Clean Catch Legionella Antigen - Final 05/23/22 Unknown Urine, Clean Catch Streptococcus pneumoniae Antigen (M - Final 05/23/22 21:09 Nasal Secretion SARS-CoV-2 & FLU Antigen (Rapid) - Final Radiography Diagnostic Testing: Radiology Impression Chest CTA 05/23/22 20:17 IMPRESSION: 1. No evidence of pulmonary embolus. 2. Lingular and right lower lobe consolidation which may represent pneumonia. Electronically Signed: Jerzy Torre MD at 22:48 EST , Chest X-Ray 05/23/22 21:50 IMPRESSION: Right lower lobe airspace disease which may represent early pneumonia. Electronically Signed: Jerzy Torre MD at 22:42 EST , Physical Exam Const alert and no apparent distress Constitutional Narrative: Oriented HEENT normocephalic and head/scalp atraumatic Eyes Eyes Narrative: EOM grossly intact, anicteric Neck supple Resp Resp Narrative: When trying to take deep breaths for auscultation but cough, no wheezes with normal respiration, somewhat diminished at the bases Cardio regular rate and regular rhythm GI soft to palpation, non-tender and non-distended Extremity Extremity Narrative: No edema appreciated Neuro moves all extremities Neuro Narrative: No overt focal deficits appreciated Psych Psych Narrative: Cooperative Assessment & Plan Assessment/Plan (1) Pneumonia: PLAN: Plan #Acute hypoxia secondary to acute right lower lobe pneumonia and acute on chronic COPD exacerbation Positive for parainfluenza CTA on admission demonstrated right lingular and lower lobe consolidation and no PE Is presently on DuoNebs, as needed albuterol, Rocephin, Zithromax If cultures negative tomorrow we will DC Rocephin continue supportive measures for the parainfluenza Continue Solu-Medrol Incentive spirometry Did have blood cultures drawn on admission, currently no growth to date Urine antigens negative #CKD stage IIIa Does appear to be at baseline Does have slightly elevated potassium however, will hold losartan #Hypertension Hold Ramesh given hyperkalemia, continue other home medications #Chronic normocytic anemia Admission hemoglobin 10.1 and appears to be baseline Can consider work-up as an outpatient #Hypothyroidism Continue Synthroid #DAI CPAP nightly #DVT prophylaxis: SCDs, Lovenox Charges/Coding Visit Charges Inpatient E&M: 81532 Subs Hosp L2
[2022-05-24] MEDS: Azithromycin 250 MG Tablet 500 MG PO (21:51)
[2022-05-24] MEDS: Atorvastatin Calcium 20 MG Tablet PO (21:51)
[2022-05-24] MEDS: Ceftriaxone 1 GM/50 ML BAG IV (21:52)
[2022-05-25] VITALS (8 sets, daily range): BP systolic 133–147; BP diastolic 45–68; PULSE 54–70; RESP 14–20; TEMP 36.6–36.8; O2SAT 90–97
--- NOTE | 2022-05-25 02:25 | CPS ---
Pt is placed on an AutoCPAP machine from [facility].
[2022-05-25] MEDS: 0.9% Saline Lock 10 ML Syringe IV (05:49)
[2022-05-25] MEDS: Levothyroxine 75 MCG Tablet PO (05:49)
[2022-05-25 06:27] LABS: Absolute Lymphocyte Count 1.33 X10^3/uL (0.83-4.51); Absolute Neutrophil Count 19.9 X10^3/uL (2.0-7.7); Basophil# 0.01 X10^3/uL; Hematocrit 28.2 % (37-47); Lymphocyte # 1.33 X10^3/ul (0.83-4.51); Mean Corp Hgb Conc 31.9 g/dL (32-36); Mean Corpuscular Hgb 31.3 pg (27.0-32.0); Mean Corpuscular Volume 97.9 fL (81-99); Mean Platelet Vol. 9.5 fl (6.2-12.0); Monocyte# 0.67 X10^3/uL; NRBC Flagged by Analyzer 0 % (0-5); Neutrophil # 19.94 X10^3/uL (2.7-7.7); Neutrophil % 89.9 % (47-70); Platelet Count 239 K/mm3 (150-450); RBC Distribution Width CV 12.8 % (11.6-14.6); Red Blood Count 2.88 M/mm3 (4.2-5.4); White Blood Count 22.2 K/mm3 (4.4-11.0)
[2022-05-25 06:55] LABS: ALB/GLOB Ratio 0.7 RATIO (0.9-2.4); AST(SGOT) 13 U/L (15-37); Alanine Aminotransfer ALT/SGPT 16 U/L (13-56); Albumin, Serum 2.6 g/dL (3.2-5.0); Alkaline Phosphatase 46 U/L (45-117); Anion Gap 8 (5-15); BUN 22 mg/dL (7-18); Calcium,Total 8.4 mg/dL (8.5-10.1); Chloride 109 mmol/L (98-107); Creatinine, Serum 0.71 mg/dL (0.55-1.02); EST Glomerular Filtration Rate 85 mL/min (>60); Est Glom Filt Rate - Afr Amer 102 mL/min (>60); Globulin 3.6 g/dL (2.2-4.2); Glucose 186 mg/dL (74-106); Potassium 4.1 mmol/L (3.5-5.1); Protein, Total 6.2 g/dL (6.4-8.2); Sodium Level 139 mmol/L (136-145)
[2022-05-25] MEDS: Ipratropium/Albuterol Sulfate 3 ML AMPUL.NEB INHALATION ×2 (07:25→11:22)
[2022-05-25] MEDS: Sertraline 50 MG Tablet PO (10:36)
[2022-05-25] MEDS: Ensure Plus High Protein 120 ML LIQUID PO (10:36)
--- NOTE | 2022-05-25 12:20 | PCM.DC ---
Discharge Instructions Diet Discharge Diet: No restrictions Activity Discharge Activity: Return to Normal Activity Follow Up Care Test Results: Test results from this visit will be discussed in further detail at your follow-up appointment, if applicable. Discharge Plan Admission Admit Date/Time: 05/23/22 22:16 Primary Reason for Your Visit: Cough and shortness of breath Attending Provider: Karo Mccann Primary Care Provider: Jessica Lew Consulting Providers: Karlie Vásquez Instructions Patient Instructions: ED Pneumonia (Adult) Additional Instructions / Restrictions: *Please take this with you to your next doctors appointment* ?You will be discharged on antibiotics for pneumonia, you will take cefpodoxime 200 mg twice daily for another 6 days, you can take your first dose tonight and you will take 2 more doses of azithromycin with the first dose tonight ?You also have a viral infection with parainfluenza, continue steroid course and inhalers for this ?Additionally will be discharged on a course of steroids for your breathing which you will take for another 6 days starting tomorrow 05/26 ?These prescriptions have been sent to the [facility] in [facility] on [address] as that is the closest pharmacy that is open today ?Continue your albuterol inhaler every 4 hours as needed ?We will also be important that you continue your Symbicort twice daily -Please call your primary care provider's office upon discharge to schedule a hospital follow up within 1 week. -For any concerning signs or symptoms please call 911 or proceed to the nearest emergency department Discharge Orders/Prescriptions Prescriptions: New cefpodoxime 200 mg tablet 200 mg PO BID 6 Days Qty: 13 0RF Rx Instructions: must administer with a meal/food azithromycin 500 mg tablet 500 mg PO DAILY 2 Days Qty: 2 0RF Rx Instructions: start evening of 05/25 prednisone 20 mg tablet 40 mg PO DAILY 6 Days Qty: 12 0RF Continued atorvastatin 20 MG tablet 20 mg PO QHS levothyroxine 75 MCG tablet 75 mcg PO DAILY sertraline 50 MG tablet 50 mg PO DAILY Label Comments: budesonide-formoterol [Symbicort] 1 INHALER inhaler 2 puff inhalation BID Label Comments: losartan 50 mg tablet 50 mg DAILY Label Comments: Take 1 tablet by mouth daily alendronate 70 mg tablet 70 mg PO QWEEK Rx Instructions: every wednesday albuterol sulfate 90 mcg/actuation HFA aerosol inhaler 2 puff INHALATION Q4H PRN PRN (Reason: Shortness Of Breath) Label Comments: Inhale 2 Puffs as instructed every 4 hours as needed for wheezing/shortness of breath. ondansetron 4 mg tablet,disintegrating 4 mg PO Q6H PRN (Reason: nausea and vomiting) Qty: 20 0RF Sore Throat and Cough 5-7.5 mg lozenge 1 gage PO Q4H PRN (Reason: sore throat) Qty: 18 0RF trazodone 100 mg Tablet 200 mg PO QHS PRN (Reason: Sleep) Referrals / Follow Up: Jessica Lew DO [Primary Care Provider] - Within 1 Week Disposition Disposition (needs filled in before D/C Order can be placed): Home, Self Care
--- NOTE | 2022-05-25 12:41 | PCM.DC.SUM ---
Providers Date of Admission: 05/23/22 Date of Discharge: 05/25/22 Primary Care Physician: Dr. Jessica Lew DO Reason For Visit: PNA, COPD EXAC, HYPOXIA Diagnosis Discharge Diagnosis (1) Pneumonia: Status: Acute Code(s): J18.9 - Pneumonia, unspecified organism Plan #Acute hypoxia secondary to acute right lower lobe pneumonia and acute on chronic COPD exacerbation #CKD stage IIIa #Hypertension #Chronic normocytic anemia #Hypothyroidism #DAI Medications at Discharge Home Medications atorvastatin 20 mg tablet 20 mg PO QHS cholesterol 12/08/16 budesonide-formoterol HFA 160 mcg-4.5 mcg/actuation aerosol inhaler (Symbicort) 2 puff inhalation BID asthma 12/08/16 levothyroxine 75 mcg tablet 75 mcg PO DAILY thyroid 12/08/16 sertraline 50 mg tablet 50 mg PO DAILY depression 12/08/16 albuterol sulfate 90 mcg/actuation aerosol inhaler 2 puff inhalation Q4H PRN PRN Shortness Of Breath 06/09/21 alendronate 70 mg tablet 70 mg PO QWEEK unsure 06/09/21 losartan 50 mg tablet 50 mg DAILY bp 06/09/21 ondansetron 4 mg disintegrating tablet 4 mg PO Q6H PRN nausea and vomiting #20 tabs 12/26/21 dextromethorphan-benzocaine 5 mg-7.5 mg lozenges (Sore Throat and Cough) 1 gage PO Q4H PRN sore throat #18 ea 12/30/21 trazodone 100 mg tablet 200 mg PO QHS PRN Sleep 05/24/22 azithromycin 500 mg tablet 500 mg PO DAILY 2 days #2 tabs 05/25/22 cefpodoxime 200 mg tablet 200 mg PO BID 6 days #13 tabs 05/25/22 prednisone 20 mg tablet 40 mg PO DAILY 6 days #12 tabs 05/25/22 Hospital Course Summary of Care Provided Minutes Spent on Discharge: 25 Hospital Course: The patient is a 77 y/o F w/ PMHx: Hx VTE, Chronic anemia, COPD, Former tobacco use, HTN, HLD, Hypothyroidism, DAI on CPAP q HS, Anxiety and Depression who presents to the [facility] ED on 05/23/22 with history of nonproductive cough, chills, body aches ongoing for 3 days with associated dyspnea with occasional pleuritic discomfort primarily with deep inspiratory effort and coughing fits with no associated specific fevers, nausea, emesis or abdominal pain but she does report one loose stool a.m. on day of presentation otherwise none since however given ongoing symptoms prompted ED evaluation.? Patient also reports occasionally wheezing.? She had CTA with no evidence of PE but did have right lower lobe consolidation. Was started on Rocephin and azithromycin and nebs as well as steroids. Was found to have parainfluenza. Improved quickly significantly. Discussed staying 1 more day versus discharge and patient expressed desire to be discharged which is reasonable given rapid improvement. Discharge instructions provided for patient as below: *Please take this with you to your next doctors appointment* ?You will be discharged on antibiotics for pneumonia, you will take cefpodoxime 200 mg twice daily for another 6 days, you can take your first dose tonight and you will take 2 more doses of azithromycin with the first dose tonight ?You also have a viral infection with parainfluenza, continue steroid course and inhalers for this ?Additionally will be discharged on a course of steroids for your breathing which you will take for another 6 days starting tomorrow 05/26 ?These prescriptions have been sent to the [facility] in [facility] on [address] as that is the closest pharmacy that is open today ?Continue your albuterol inhaler every 4 hours as needed ?We will also be important that you continue your Symbicort twice daily -Please call your primary care provider's office upon discharge to schedule a hospital follow up within 1 week. -For any concerning signs or symptoms please call 911 or proceed to the nearest emergency department Physical Exam Const alert and no apparent distress Constitutional Narrative: Oriented HEENT normocephalic and head/scalp atraumatic Eyes Eyes Narrative: EOM grossly intact, anicteric Neck supple Resp Resp Narrative: Somewhat diminished in the bases, less coughing, no increase work of breathing Cardio regular rate and regular rhythm GI soft to palpation, non-tender and non-distended Extremity Extremity Narrative: No edema appreciated Neuro moves all extremities Neuro Narrative: No overt focal deficits appreciated Psych Psych Narrative: Cooperative Weight / BMI Weight Weight: 63.6 kg Body Mass Index (BMI) 23.2 ABG / Lab / Microbiology Data Result Diagrams: 05/25/22 06:00 05/25/22 06:00 Laboratory: Laboratory Results - last 24 hr 05/25/22 06:00: WBC 22.2 H, RBC 2.88 L, Hgb 9.0 L, Hct 28.2 L, MCV 97.9, MCH 31.3, MCHC 31.9 L, RDW Std Deviation 46.0 H, RDW Coeff of Jeanna 12.8, Plt Count 239, MPV 9.5, Immature Gran % (Auto) 1.100 H, Neut % (Auto) 89.9 H, Lymph % (Auto) 6.0 L, [place] % (Auto) 3.0, Eos % (Auto) 0.0, Baso % (Auto) 0.0, Absolute Neuts (auto) 19.9 H, Absolute Lymphs (auto) 1.33, Nucleated RBC % 0 05/25/22 06:00: Sodium 139, Potassium 4.1, Chloride 109 H, Carbon Dioxide 22.0, Anion Gap 8, BUN 22 H, Creatinine 0.71, Estim Creat Clear Calc 43.40, Est GFR (MDRD) Af Amer 102, Est GFR (MDRD) Non-Af 85, BUN/Creatinine Ratio 31.0 H, Glucose 186 H, Calcium 8.4 L, Total Bilirubin 0.20, AST 13 L, ALT 16, Alkaline Phosphatase 46, Total Protein 6.2 L, Albumin 2.6 L, Globulin 3.6, Albumin/Globulin Ratio 0.7 L Microbiology: Microbiology 05/23/22 21:00 Urine, Clean Catch Urine Culture - Final Mixed Gram Positive Organisms 05/23/22 22:23 Mucosa - Nasopharyngeal Respiratory Panel (PCR) - Final Parainfluenza 1 05/23/22 Unknown Urine, Clean Catch Legionella Antigen - Final 05/23/22 Unknown Urine, Clean Catch Streptococcus pneumoniae Antigen (M - Final 05/23/22 21:09 Nasal Secretion SARS-CoV-2 & FLU Antigen (Rapid) - Final D/C Instructions Discharge Diet: No restrictions Meaningful Use Info Meaningful Use Diagnoses (Choose all that apply): None applicable Discharge Plan Admission Admit Date/Time: 05/23/22 22:16 Primary Reason for Your Visit: Cough and shortness of breath Attending Provider: Karo Mccann Primary Care Provider: Jessica Lwe Consulting Providers: Karlie Vásquez Instructions Patient Instructions: ED Pneumonia (Adult) Additional Instructions / Restrictions: *Please take this with you to your next doctors appointment* ?You will be discharged on antibiotics for pneumonia, you will take cefpodoxime 200 mg twice daily for another 6 days, you can take your first dose tonight and you will take 2 more doses of azithromycin with the first dose tonight ?You also have a viral infection with parainfluenza, continue steroid course and inhalers for this ?Additionally will be discharged on a course of steroids for your breathing which you will take for another 6 days starting tomorrow 05/26 ?These prescriptions have been sent to the [facility] in [facility] on [address] as that is the closest pharmacy that is open today ?Continue your albuterol inhaler every 4 hours as needed ?We will also be important that you continue your Symbicort twice daily -Please call your primary care provider's office upon discharge to schedule a hospital follow up within 1 week. -For any concerning signs or symptoms please call 911 or proceed to the nearest emergency department Discharge Orders/Prescriptions Prescriptions: New cefpodoxime 200 mg tablet 200 mg PO BID 6 Days Qty: 13 0RF Rx Instructions: must administer with a meal/food azithromycin 500 mg tablet 500 mg PO DAILY 2 Days Qty: 2 0RF Rx Instructions: start evening of 05/25 prednisone 20 mg tablet 40 mg PO DAILY 6 Days Qty: 12 0RF Continued atorvastatin 20 MG tablet 20 mg PO QHS levothyroxine 75 MCG tablet 75 mcg PO DAILY sertraline 50 MG tablet 50 mg PO DAILY Label Comments: budesonide-formoterol [Symbicort] 1 INHALER inhaler 2 puff inhalation BID Label Comments: losartan 50 mg tablet 50 mg DAILY Label Comments: Take 1 tablet by mouth daily alendronate 70 mg tablet 70 mg PO QWEEK Rx Instructions: every wednesday albuterol sulfate 90 mcg/actuation HFA aerosol inhaler 2 puff INHALATION Q4H PRN PRN (Reason: Shortness Of Breath) Label Comments: Inhale 2 Puffs as instructed every 4 hours as needed for wheezing/shortness of breath. ondansetron 4 mg tablet,disintegrating 4 mg PO Q6H PRN (Reason: nausea and vomiting) Qty: 20 0RF Sore Throat and Cough 5-7.5 mg lozenge 1 gage PO Q4H PRN (Reason: sore throat) Qty: 18 0RF trazodone 100 mg Tablet 200 mg PO QHS PRN (Reason: Sleep) Referrals / Follow Up: Jessica Lew DO [Primary Care Provider] - Within 1 Week Disposition Disposition (needs filled in before D/C Order can be placed): Home, Self Care Charges/Coding Visit Charges Inpatient E&M: 03150 Disch Hosp
== END 2022-05-25 14:13 | disposition home or self-care (01) | DRG 194 ==
LOC: ED 22:15 → MS3 05-24 06:39
PROVIDERS: Admitting Provider Family Medicine; Emergency Provider Student in an Organized Health Care Education/Training Program; PCP Internal Medicine; Visit Provider Internal Medicine
DX: J12.2 Parainfluenza virus pneumonia (principal); J44.0 Chronic obstructive pulmonary disease with (acute) lower respiratory infection; J44.1 Chronic obstructive pulmonary disease with (acute) exacerbation; N18.31 Chronic kidney disease, stage 3a; D63.1 Anemia in chronic kidney disease; G47.33 Obstructive sleep apnea (adult) (pediatric); I12.9 Hypertensive chronic kidney disease with stage 1 through stage 4 chronic kidney disease, or unspecified chronic kidney disease; E03.9 Hypothyroidism, unspecified; E78.5 Hyperlipidemia, unspecified; F41.9 Anxiety disorder, unspecified; F32.A Depression, unspecified; R09.02 Hypoxemia; Z79.899 Other long term (current) drug therapy; Z86.16 Personal history of COVID-19; Z86.711 Personal history of pulmonary embolism; Z87.891 Personal history of nicotine dependence; Z79.51 Long term (current) use of inhaled steroids; Z79.83 Long term (current) use of bisphosphonates; Z79.890 Hormone replacement therapy
CPT/HCPCS: 36415; 71045; 71275; 80053; 81001; 83605; 84145; 84484; 85025; 85610; 85730; 87040; 87070; 87086; 87088; 87205; 87428; 87449; 87633; 93005; 94640; 94660; 96361; 96365; 96366; 96372; 96375; 96376; 99221; 99285; J7030; Q9967; A4216; G0378

== ENCOUNTER → 2022-06-15 | Outpatient (CLI) | payer MEDICARE, SELFPAY ==
[2022-06-15 14:06] LABS: PTHIN 166.1 pg/mL (18.4-80.1)
[2022-06-15 14:11] LABS: Vitamin D,25 Hydroxy 59.7 ng/mL
[2022-06-15 14:21] LABS: AST(SGOT) 14 U/L (15-37); Alanine Aminotransfer ALT/SGPT 26 U/L (13-56); Albumin, Serum 3.3 g/dL (3.2-5.0); Alkaline Phosphatase 48 U/L (45-117); Anion Gap 9 (5-15); BUN 14 mg/dL (7-18); BUN/Creat Ratio 12.6 RATIO (10-20); Calcium,Total 8.8 mg/dL (8.5-10.1); Chloride 105 mmol/L (98-107); Creatinine, Serum 1.11 mg/dL (0.55-1.02); EST Glomerular Filtration Rate 51 mL/min (>60); Est Glom Filt Rate - Afr Amer 61 mL/min (>60); Globulin 3.3 g/dL (2.2-4.2); Glucose 106 mg/dL (74-106); Potassium 3.3 mmol/L (3.5-5.1); Protein, Total 6.6 g/dL (6.4-8.2); Sodium Level 143 mmol/L (136-145); Thyroid Stim Hormone (TSH) 0.13 uIU/mL (0.358-3.74)
== END | disposition home or self-care (01) ==
LOC: LAB 12:26
PROVIDERS: PCP Internal Medicine; Referring Provider Nurse Practitioner Adult Health; Visit Provider Nurse Practitioner Adult Health
DX: E21.0 Primary hyperparathyroidism (principal); E03.8 Other specified hypothyroidism; E55.9 Vitamin D deficiency, unspecified
CPT/HCPCS: 36415; 80053; 82306; 83970; 84443

== ENCOUNTER → 2022-07-07 | Outpatient (CLI) | payer MEDICARE, SELFPAY ==
[2022-07-07 13:57] LABS: Anion Gap 4 (5-15); BUN 17 mg/dL (7-18); BUN/Creat Ratio 17.5 RATIO (10-20); Calcium,Total 9.6 mg/dL (8.5-10.1); Chloride 107 mmol/L (98-107); Creatinine, Serum 0.97 mg/dL (0.55-1.02); EST Glomerular Filtration Rate 59 mL/min (>60); Est Glom Filt Rate - Afr Amer 71 mL/min (>60); Glucose 102 mg/dL (74-106); Sodium Level 141 mmol/L (136-145)
== END | disposition home or self-care (01) ==
LOC: LAB 13:21
PROVIDERS: PCP Internal Medicine; Referring Provider Nurse Practitioner Adult Health; Visit Provider Nurse Practitioner Adult Health
DX: E21.0 Primary hyperparathyroidism (principal)
CPT/HCPCS: 36415; 80048

== ENCOUNTER → 2022-08-11 | Outpatient (CLI) | payer MEDICARE, SELFPAY ==
[2022-08-11 12:26] LABS: Erythrocyte Sedimentation Rate 1 mm/hr (0-30)
--- NOTE | 2022-08-11 12:30 | RAD_ITS ---
STUDY: X-RAY CHEST REASON FOR EXAM: Female, 77 years old. Shortness of breath. TECHNIQUE: Frontal and lateral views of the chest. COMPARISON: May 23, 2022. FINDINGS: Hyperinflation. Patchy opacities at both bases, right greater than left, on the prior study, have resolved. Lungs now clear. Stable cardiomegaly. Diffuse thoracic spondylosis with slight increased kyphosis. No demonstrated abnormality of the visualized soft tissue structures of the upper abdomen. RAD/Chest PA and Lateral IMPRESSION: Cardiomegaly with resolution of patchy opacities seen on the prior study. Hyperinflation with no acute or active cardiopulmonary disease. Electronically Signed: Roberto Jimenez, at 14:00 EDT ,
[2022-08-11 13:43] LABS: CRP < 2.90 mg/L (0.0-3.0)
== END | disposition home or self-care (01) ==
PROVIDERS: PCP Internal Medicine; Referring Provider Internal Medicine Pulmonary Disease; Visit Provider Internal Medicine Pulmonary Disease
DX: R06.02 Shortness of breath (principal); R05.9 Cough, unspecified
CPT/HCPCS: 36415; 71046; 85652; 86140

== ENCOUNTER → 2022-08-17 | Outpatient (CLI) | payer MEDICARE, SELFPAY ==
[2022-08-17 13:10] LABS: ALB/GLOB Ratio 1.2 RATIO (0.9-2.4); AST(SGOT) 18 U/L (15-37); Alanine Aminotransfer ALT/SGPT 22 U/L (13-56); Albumin, Serum 3.5 g/dL (3.2-5.0); Alkaline Phosphatase 45 U/L (45-117); Anion Gap 5 (5-15); BUN 17 mg/dL (7-18); BUN/Creat Ratio 16.3 RATIO (10-20); Calcium,Total 9.9 mg/dL (8.5-10.1); Chloride 105 mmol/L (98-107); Creatinine, Serum 1.04 mg/dL (0.55-1.02); EST Glomerular Filtration Rate 54 mL/min (>60); Est Glom Filt Rate - Afr Amer 66 mL/min (>60); Glucose 117 mg/dL (74-106); Protein, Total 6.5 g/dL (6.4-8.2); Sodium Level 142 mmol/L (136-145); Thyroid Stim Hormone (TSH) 0.72 uIU/mL (0.358-3.74)
== END | disposition home or self-care (01) ==
LOC: LAB 11:51
PROVIDERS: PCP Internal Medicine; Referring Provider Nurse Practitioner Adult Health; Visit Provider Nurse Practitioner Adult Health
DX: E21.0 Primary hyperparathyroidism (principal); E03.8 Other specified hypothyroidism
CPT/HCPCS: 36415; 80053; 83970; 84443

== ENCOUNTER → 2022-11-03 | Outpatient (CLI) | payer MEDICARE, SELFPAY ==
[2022-11-03 17:23] LABS: Vitamin D,25 Hydroxy 63.6 ng/mL
[2022-11-03 17:32] LABS: ALB/GLOB Ratio 1.1 RATIO (0.9-2.4); AST(SGOT) 17 U/L (15-37); Alanine Aminotransfer ALT/SGPT 28 U/L (13-56); Albumin, Serum 3.6 g/dL (3.2-5.0); Alkaline Phosphatase 53 U/L (45-117); Anion Gap 5 (5-15); BUN 20 mg/dL (7-18); BUN/Creat Ratio 21.4 RATIO (10-20); Chloride 106 mmol/L (98-107); Creatinine, Serum 0.94 mg/dL (0.55-1.02); EST Glomerular Filtration Rate 61 mL/min (>60); Est Glom Filt Rate - Afr Amer 74 mL/min (>60); Globulin 3.3 g/dL (2.2-4.2); Glucose 91 mg/dL (74-106); Protein, Total 6.9 g/dL (6.4-8.2); Sodium Level 140 mmol/L (136-145); Thyroid Stim Hormone (TSH) 1.42 uIU/mL (0.358-3.74)
[2022-11-04 09:17] LABS: PTHIN 117.6 pg/mL (18.4-80.1)
== END | disposition home or self-care (01) ==
LOC: LAB 15:37
PROVIDERS: PCP Internal Medicine; Referring Provider Internal Medicine Endocrinology, Diabetes & Metabolism; Visit Provider Internal Medicine Endocrinology, Diabetes & Metabolism
DX: E21.0 Primary hyperparathyroidism (principal); E03.8 Other specified hypothyroidism; E55.9 Vitamin D deficiency, unspecified
CPT/HCPCS: 36415; 80053; 82306; 83735; 83970; 84443

== ENCOUNTER → 2022-12-22 | Outpatient (CLI) | payer MEDICARE, SELFPAY ==
--- NOTE | 2022-12-22 11:11 | BI_ITS ---
MAMMOGRAPHY - BILATERAL SCREENING REASON FOR EXAM: Female, 77 years old. Routine annual screening examination. PERTINENT HISTORY: Non-contributory. TECHNIQUE: Digital bilateral breast judi (3D mammographic acquisition) in the CC and MLO projections. 2-D mediolateral oblique (MLO) and craniocaudad (CC) views of both breasts were obtained. CAD: Full Field Digital Mammography with Computer Added Detection was performed. COMPARISON: Comparison is made with prior study dated December 16, 2016. FINDINGS: Breast Composition: There are scattered areas of fibroglandular density. There are no dominant masses or suspicious calcifications. Stable benign-appearing bilateral axillary lymph nodes. No other significant abnormalities are identified. BI/SCRN MAMM (CAD)W/JUDI BILAT IMPRESSION: Stable bilateral screening mammogram. Yearly follow-up mammogram recommended. (A) ASSESSMENT CATEGORY: BIRADS Category 2: Benign. A letter regarding these results will be sent to the patient by the facility within 30 days. Approximately 10% of breast cancers are not detected by mammography. A normal mammogram should not delay biopsy of a clinically suspicious abnormality. [id number] Electronically Signed: Kameron Hester MD at 13:28 EDT ,
--- NOTE | 2022-12-22 11:12 | BD_ITS ---
STUDY: DUAL ENERGY X-RAY ABSORPTIOMETRY / DXA REASON FOR EXAM: Female, 77 years old. [id number] TECHNIQUE: Bone Mineral Density (BMD) measurements of lumbar spine and bilateral hips were obtained. COMPARISON: Comparison is made with prior study dated November 02, 2019. FINDINGS: Lumbar Spine (L1-L4): g/cm2 (0.825) / T-score (-2.0) / Z-score (0.6) Findings are suggestive of osteopenia with a moderate fracture risk. Left Femur Total: g/cm2 (0.699) / T-score (-2.0) / Z-score (0.0) Left Femoral Neck: g/cm2 (0.606) / T-score (-2.2) / Z-score (0.1) Right Femur Total: g/cm2 (0.716) / T-score (-1.8) / Z-score (0.1) Right Femoral Neck: g/cm2 (0.613) / T-score (-2.1) / Z-score (0.1) The T-Scores on the most recent prior examination were: Lumbar Spine (L1-L4): There has been improvement of bone density since the previous examination. Left Femur Total: which represents no significant change. . Right Femur Total: which represents no significant change. . BD/Dexa Bone Density Study IMPRESSION: The patient is considered osteopenic as outlined below according to World [employer] Organization (WHO) criteria with a high fracture risk. There has been improvement of bone density since the previous examination. Reference Information: The T-score is the number of standard deviations above or below the standard which is normal for young adults at their peak bone mineral density. The World Health Organization (WHO) interprets the T-scores as follows: Above -1 Normal bone density Between -1 and -2.5 Osteopenia Equal to / or below -2.5 Osteoporosis As a practical clinical guideline, osteopenia may be graded as follows: Mild -1 through -1.5 Moderate -1.6 through -2.0 Severe -2.1 through -2.4 The Z-score is the number of standard deviations above or below age-matched controls. A Z-score of less than -1.5 would be considered abnormal. References: 1. NIH Osteoporosis and Related Bone Diseases www osteo.org 2. International Society for Clinical Densitometry www iscd.org 3. National Osteoporosis Foundation www nof.org Electronically Signed: Kameron Hester MD at 14:06 EDT ,
== END | disposition home or self-care (01) ==
LOC: OPBD 11:08
PROVIDERS: PCP Internal Medicine; Referring Provider Internal Medicine; Visit Provider Internal Medicine
DX: Z78.0 Asymptomatic menopausal state (principal); Z12.31 Encounter for screening mammogram for malignant neoplasm of breast
CPT/HCPCS: 77063; 77067; 77080

== ENCOUNTER → 2023-01-14 | Outpatient (CLI) | payer MEDICARE, SELFPAY ==
[2023-01-14 12:56] LABS: ALB/GLOB Ratio 1.1 RATIO (0.9-2.4); AST(SGOT) 14 U/L (15-37); Alanine Aminotransfer ALT/SGPT 27 U/L (13-56); Albumin, Serum 3.5 g/dL (3.2-5.0); Alkaline Phosphatase 50 U/L (45-117); Anion Gap 2 (5-15); BUN 17 mg/dL (7-18); Calcium,Total 9.4 mg/dL (8.5-10.1); Chloride 108 mmol/L (98-107); EST Glomerular Filtration Rate 57 mL/min (>60); Est Glom Filt Rate - Afr Amer 69 mL/min (>60); Globulin 3.2 g/dL (2.2-4.2); Glucose 89 mg/dL (74-106); Protein, Total 6.7 g/dL (6.4-8.2); Sodium Level 140 mmol/L (136-145)
[2023-01-15 08:04] LABS: PTHIN 125.1 pg/mL (18.4-80.1)
== END | disposition home or self-care (01) ==
PROVIDERS: PCP Internal Medicine; Referring Provider Nurse Practitioner Adult Health; Visit Provider Nurse Practitioner Adult Health
DX: E21.0 Primary hyperparathyroidism (principal)
CPT/HCPCS: 36415; 80053; 83970

== ENCOUNTER → 2023-06-25 | Outpatient (CLI) | payer MEDICARE, SELFPAY ==
[2023-06-25 15:16] LABS: Vitamin D,25 Hydroxy 44.8 ng/mL
[2023-06-25 15:21] LABS: AST(SGOT) 12 U/L (15-37); Alanine Aminotransfer ALT/SGPT 21 U/L (13-56); Albumin, Serum 3.5 g/dL (3.2-5.0); Alkaline Phosphatase 46 U/L (45-117); Anion Gap 1 (5-15); BUN 20 mg/dL (7-18); BUN/Creat Ratio 16.9 RATIO (10-20); Calcium,Total 9.3 mg/dL (8.5-10.1); Chloride 106 mmol/L (98-107); Creatinine, Serum 1.18 mg/dL (0.55-1.02); EST Glomerular Filtration Rate 47 mL/min (>60); Est Glom Filt Rate - Afr Amer 57 mL/min (>60); Globulin 3.4 g/dL (2.2-4.2); Glucose 162 mg/dL (74-106); Potassium 3.6 mmol/L (3.5-5.1); Protein, Total 6.9 g/dL (6.4-8.2); Sodium Level 138 mmol/L (136-145); Thyroid Stim Hormone (TSH) 0.67 uIU/mL (0.358-3.74)
[2023-06-26 08:20] LABS: PTHIN 152.6 pg/mL (18.4-80.1)
== END | disposition home or self-care (01) ==
LOC: LAB 13:29
PROVIDERS: PCP Internal Medicine; Referring Provider Nurse Practitioner Adult Health; Visit Provider Nurse Practitioner Adult Health
DX: E21.0 Primary hyperparathyroidism (principal); E03.8 Other specified hypothyroidism; E55.9 Vitamin D deficiency, unspecified; Z87.310 Personal history of (healed) osteoporosis fracture
CPT/HCPCS: 36415; 80053; 82306; 83970; 84443

== ENCOUNTER → 2023-11-03 | Outpatient (CLI) | payer MEDICARE, SELFPAY ==
[2023-11-03 13:59] LABS: Vitamin D,25 Hydroxy 43.3 ng/mL
[2023-11-03 14:05] LABS: ALB/GLOB Ratio 1.1 RATIO (0.9-2.4); AST(SGOT) 15 U/L (15-37); Alanine Aminotransfer ALT/SGPT 20 U/L (13-56); Albumin, Serum 3.5 g/dL (3.2-5.0); Alkaline Phosphatase 48 U/L (45-117); Anion Gap 3 (5-15); BUN 16 mg/dL (7-18); BUN/Creat Ratio 14.4 RATIO (10-20); Calcium,Total 8.4 mg/dL (8.5-10.1); Chloride 107 mmol/L (98-107); Creatinine, Serum 1.11 mg/dL (0.55-1.02); EST Glomerular Filtration Rate 50 mL/min (>60); Est Glom Filt Rate - Afr Amer 61 mL/min (>60); Globulin 3.2 g/dL (2.2-4.2); Glucose 106 mg/dL (74-106); Protein, Total 6.7 g/dL (6.4-8.2); Sodium Level 138 mmol/L (136-145); Thyroid Stim Hormone (TSH) 1.13 uIU/mL (0.358-3.74)
== END | disposition home or self-care (01) ==
LOC: LAB 12:47
PROVIDERS: PCP Internal Medicine; Referring Provider Internal Medicine Endocrinology, Diabetes & Metabolism; Visit Provider Internal Medicine Endocrinology, Diabetes & Metabolism
DX: E21.0 Primary hyperparathyroidism (principal); E03.8 Other specified hypothyroidism; E55.9 Vitamin D deficiency, unspecified
CPT/HCPCS: 36415; 80053; 82306; 84443

== ENCOUNTER → 2024-03-17 | Outpatient (CLI) | payer MEDICARE, SELFPAY ==
[2024-03-17 14:35] LABS: PTHIN 218.2 pg/mL (18.4-80.1)
[2024-03-17 14:38] LABS: Vitamin D,25 Hydroxy 45.8 ng/mL
[2024-03-17 14:46] LABS: ALB/GLOB Ratio 1.1 RATIO (0.9-2.4); AST(SGOT) 16 U/L (15-37); Alanine Aminotransfer ALT/SGPT 23 U/L (13-56); Albumin, Serum 3.6 g/dL (3.2-5.0); Alkaline Phosphatase 54 U/L (45-117); Anion Gap 5 (5-15); BUN 19 mg/dL (7-18); BUN/Creat Ratio 19.9 RATIO (10-20); Calcium,Total 8.4 mg/dL (8.5-10.1); Chloride 106 mmol/L (98-107); Creatinine, Serum 0.95 mg/dL (0.55-1.02); EST Glomerular Filtration Rate 60 mL/min (>60); Est Glom Filt Rate - Afr Amer 73 mL/min (>60); Globulin 3.2 g/dL (2.2-4.2); Glucose 87 mg/dL (74-106); Magnesium 1.9 mg/dL (1.6-2.6); Potassium 3.9 mmol/L (3.5-5.1); Protein, Total 6.8 g/dL (6.4-8.2); Sodium Level 140 mmol/L (136-145)
== END | disposition home or self-care (01) ==
LOC: LAB 13:52
PROVIDERS: PCP Internal Medicine; Referring Provider Internal Medicine Endocrinology, Diabetes & Metabolism; Visit Provider Internal Medicine Endocrinology, Diabetes & Metabolism
DX: E21.0 Primary hyperparathyroidism (principal); E03.8 Other specified hypothyroidism; E55.9 Vitamin D deficiency, unspecified; E83.42 Hypomagnesemia
CPT/HCPCS: 36415; 80053; 82306; 83735; 83970; 84443

== ENCOUNTER → 2024-03-22 | Outpatient (CLI) | payer MEDICARE, SELFPAY ==
[2024-03-22 11:41] LABS: Anion Gap 4 (5-15); BUN 15 mg/dL (7-18); BUN/Creat Ratio 16.5 RATIO (10-20); Calcium,Total 8.9 mg/dL (8.5-10.1); Chloride 110 mmol/L (98-107); Creatinine, Serum 0.91 mg/dL (0.55-1.02); EST Glomerular Filtration Rate 63 mL/min (>60); Est Glom Filt Rate - Afr Amer 76 mL/min (>60); Glucose 92 mg/dL (74-106); Potassium 3.9 mmol/L (3.5-5.1); Sodium Level 142 mmol/L (136-145)
== END | disposition home or self-care (01) ==
LOC: LAB 11:02
PROVIDERS: PCP Internal Medicine; Referring Provider Internal Medicine Endocrinology, Diabetes & Metabolism; Visit Provider Internal Medicine Endocrinology, Diabetes & Metabolism
DX: E03.8 Other specified hypothyroidism (principal)
CPT/HCPCS: 36415; 80048

== ENCOUNTER → 2024-04-19 | Outpatient (CLI) | payer MEDICARE, SELFPAY ==
[2024-04-19 18:02] LABS: Anion Gap 2 (5-15); BUN 18 mg/dL (7-18); BUN/Creat Ratio 17.5 RATIO (10-20); Calcium,Total 10.9 mg/dL (8.5-10.1); Chloride 108 mmol/L (98-107); Creatinine, Serum 1.03 mg/dL (0.55-1.02); EST Glomerular Filtration Rate 55 mL/min (>60); Est Glom Filt Rate - Afr Amer 66 mL/min (>60); Glucose 97 mg/dL (74-106); Potassium 4.4 mmol/L (3.5-5.1); Sodium Level 139 mmol/L (136-145)
[2024-04-19 18:03] LABS: PTHIN 142.7 pg/mL (18.4-80.1)
[2024-04-19 18:32] LABS: CRP < 2.90 mg/L (0.0-3.0)
[2024-04-21 15:09] LABS: Endomysial Antibody IgA Negative (Negative); Immunoglobulin A 198 mg/dL (64-422); t-Transglutaminase IgA <2 U/mL (0-3)
== END | disposition home or self-care (01) ==
LOC: MTLAB 14:47
PROVIDERS: Internal Medicine Endocrinology, Diabetes & Metabolism; PCP Internal Medicine; Referring Provider Internal Medicine Gastroenterology; Visit Provider Internal Medicine Gastroenterology
DX: M81.0 Age-related osteoporosis without current pathological fracture (principal); R19.7 Diarrhea, unspecified
CPT/HCPCS: 36415; 80048; 82784; 83516; 83970; 86140; 86255

== ENCOUNTER → 2024-06-16 | Outpatient (CLI) | payer MEDICARE, SELFPAY ==
[2024-06-16 16:38] LABS: Absolute Lymphocyte Count 1.67 X10^3/uL (0.83-4.51); Absolute Neutrophil Count 5.9 X10^3/uL (2.0-7.7); Basophil# 0.04 X10^3/uL; Basophil% 0.5 % (0-1); Eosinophil# 0.24 X10^3/uL; Eosinophils% 2.8 % (0-5); Hematocrit 34.7 % (37-47); Hemoglobin 11.2 g/dL (12.0-15.0); Lymphocyte # 1.67 X10^3/ul (0.83-4.51); Lymphocyte % 19.8 % (19-41); Mean Corp Hgb Conc 32.3 g/dL (32-36); Mean Corpuscular Hgb 30.9 pg (27.0-32.0); Mean Corpuscular Volume 95.9 fL (81-99); Mean Platelet Vol. 9.1 fl (6.2-12.0); Monocyte# 0.53 X10^3/uL; Monocyte% 6.3 % (0-10); NRBC Flagged by Analyzer 0 % (0-5); Neutrophil # 5.91 X10^3/uL (2.7-7.7); Neutrophil % 70.1 % (47-70); Platelet Count 257 K/mm3 (150-450); RBC Distribution Width CV 12.4 % (11.6-14.6); RBC Distribution Width SD 43.2 fl (35.1-43.9); Red Blood Count 3.62 M/mm3 (4.2-5.4); White Blood Count 8.4 K/mm3 (4.4-11.0)
== END | disposition home or self-care (01) ==
PROVIDERS: PCP Internal Medicine; Referring Provider Internal Medicine Pulmonary Disease; Visit Provider Internal Medicine Pulmonary Disease
DX: D50.9 Iron deficiency anemia, unspecified (principal); J45.909 Unspecified asthma, uncomplicated
CPT/HCPCS: 36415; 85025

== ENCOUNTER → 2024-07-11 | Outpatient (CLI) | payer MEDICARE, SELFPAY ==
[2024-07-11 16:34] LABS: PTHIN 160.1 pg/mL (18.4-80.1)
[2024-07-11 16:45] LABS: ALB/GLOB Ratio 0.9 RATIO (0.9-2.4); AST(SGOT) 18 U/L (15-37); Alanine Aminotransfer ALT/SGPT 21 U/L (13-56); Albumin, Serum 3.4 g/dL (3.2-5.0); Alkaline Phosphatase 67 U/L (45-117); Anion Gap 9 (5-15); BUN 16 mg/dL (7-18); BUN/Creat Ratio 15.5 RATIO (10-20); Calcium,Total 10.1 mg/dL (8.5-10.1); Chloride 104 mmol/L (98-107); Creatinine, Serum 1.03 mg/dL (0.55-1.02); EST Glomerular Filtration Rate 55 mL/min (>60); Est Glom Filt Rate - Afr Amer 66 mL/min (>60); Globulin 3.8 g/dL (2.2-4.2); Glucose 92 mg/dL (74-106); Potassium 3.8 mmol/L (3.5-5.1); Protein, Total 7.2 g/dL (6.4-8.2); Sodium Level 138 mmol/L (136-145)
== END | disposition home or self-care (01) ==
LOC: LABSPEC 15:37
PROVIDERS: PCP Internal Medicine; Referring Provider Internal Medicine Endocrinology, Diabetes & Metabolism; Visit Provider Internal Medicine Endocrinology, Diabetes & Metabolism
DX: E21.0 Primary hyperparathyroidism (principal); E55.9 Vitamin D deficiency, unspecified
CPT/HCPCS: 36415; 80053; 82306; 83970

== ENCOUNTER 2024-11-19 13:40 | Emergency (ER) | payer MEDICARE, SELFPAY ==
[2024-11-19 13:40] VITALS: BP 131/70; PULSE 63; RESP 16; TEMP 36.3; O2SAT 97; BMI 22.8
--- NOTE | 2024-11-19 14:29 | ED.VIS.LOWEX ---
HPI <NORMAN Doherty - Last Filed: 11/19/24 17:00> History of Present Illness Chief Complaint: Lower Extremity Injury Narrative Narrative: Patient presenting today with pain and swelling to her left calf that started yesterday. She is concerned for DVT. She has a previous history of DVT that was treated, she is not on chronic anticoagulant. She is unsure if her last DVT was provoked or not. She denies recent surgery/travel/immobilization. She has had no fevers or chills. PFSH <NORMAN Doherty - Last Filed: 11/19/24 17:00> [facility] Medical History Pneumonia History of venous thromboembolism HLD (hyperlipidemia) Chronic anemia Anxiety and depression Former tobacco use DAI on CPAP Depression COVID-19 HTN (hypertension) COPD (chronic obstructive pulmonary disease) Home Medications ?Medication ?Instructions ?Recorded ?Last Taken ?Type atorvastatin 20 mg tablet 20 mg PO QHS cholesterol 12/08/16 05/21/22 History budesonide-formoterol HFA 160 2 puff inhalation BID asthma 12/08/16 05/23/22 History mcg-4.5 mcg/actuation aerosol inhaler (Symbicort) levothyroxine 75 mcg tablet 75 mcg PO DAILY thyroid 12/08/16 05/23/22 History sertraline 50 mg tablet 50 mg PO DAILY depression 12/08/16 05/23/22 History albuterol sulfate 90 mcg/actuation 2 puff inhalation Q4H PRN PRN 06/09/21 05/23/22 History aerosol inhaler Shortness Of Breath alendronate 70 mg tablet 70 mg PO QWEEK unsure 06/09/21 05/22/22 History losartan 50 mg tablet 50 mg DAILY bp 06/09/21 05/23/22 History ondansetron 4 mg disintegrating 4 mg PO Q6H PRN nausea and 12/26/21 Unknown Rx tablet vomiting #20 tabs dextromethorphan-benzocaine 5 1 gage PO Q4H PRN sore throat #18 ea 12/30/21 Unknown Rx mg-7.5 mg lozenges (Sore Throat and Cough) trazodone 100 mg tablet 200 mg PO QHS PRN Sleep 05/24/22 05/23/22 History azithromycin 500 mg tablet 500 mg PO DAILY 2 days #2 tabs 05/25/22 Unknown Rx cefpodoxime 200 mg tablet 200 mg PO BID 6 days #13 tabs 05/25/22 Unknown Rx prednisone 20 mg tablet 40 mg (2 x 20 mg) PO DAILY 6 days 05/25/22 Unknown Rx #12 tabs Allergy/AdvReac Type Severity Reaction Status Date / Time codeine Allergy Angioedema Verified 11/19/24 13:40 Penicillins (PCN) Allergy Rash Verified 11/19/24 13:40 Sulfa (Sulfonamide AdvReac Unknown Verified 11/19/24 13:40 Antibiotics) Family History Mother Diabetes Father Asbestosis Passed when patient was 4 secondary to complications TB with history of notable asbestosis exposure concurrently. Tuberculosis Passed when patient was 4 secondary to complications TB with history of notable asbestosis exposure concurrently. Surgical History History of hand surgery Social History household members: none housing: house Smoking Status: Former smoker how long ago did patient quit smoking: Quit ~ 40 yrs prior, smoked ~ 1/2 ppd since teen until quit. alcohol intake: current alcohol intake frequency: holidays/special occasions only substance use type: does not use ROS <NORMAN Doherty - Last Filed: 11/19/24 17:00> ROS ED Constitutional Constitutional ED: Denies chills or fever(s) Cardiovascular Cardiovascular: Denies chest pain Respiratory/Chest Respiratory/Chest: Denies dyspnea Gastrointestinal Gastrointestinal: Denies abdominal pain Musculoskeletal Musculoskeletal: Reports myalgias Integumentary Denies rash Neurologic Neurologic: Denies paresthesias EXAM <NORMAN Doherty - Last Filed: 11/19/24 17:00> Physical Exam Const Vital Signs: 11/19/24 13:40 11/19/24 15:20 Temperature 97.3 F L 97.3 F L Temperature Source Oral Pulse Rate 63 63 Respiratory Rate 16 16 Blood Pressure 131/70 H 128/70 H Blood Pressure Mean 90 89 Pulse Ox 97 97 Oxygen Delivery Method Room Air Positive well nourished, well developed and no apparent distress General Appearance ED: well developed HEENT Reports normocephalic and head/scalp atraumatic Mouth ED: Yes moist mucous membranes normal Eyes PERRL and EOMs intact bilaterally Neck full ROM and supple Chest Wall inspection of chest normal Resp normal respiratory effort and clear to auscultation bilaterally Cardio regular rate and regular rhythm GI soft to palpation, non-tender, non-distended and no masses Back/Spine normal ROM and normal to inspection Extremity normal to inspection and full ROM Extremity Narrative: slight swelling of the left lower extremity in comparison to the right below the knee. Patient does have tenderness to the left calf with a positive Homans' sign. No erythema, warmth, or signs of infection. Left DP pulse 2+, good cap refill, sensation intact. Neuro oriented x3, CN's II-XII intact bilaterally, moves all extremities, no focal motor deficits and no sensory deficits noted Sensorium / Orientation: awake and alert Psych mental status grossly normal and thought process normal Skin no rashes or lesions noted and no wounds <Dr. Daniel Villarreal MD - Last Filed: 11/19/24 20:35> Physical Exam Const Vital Signs: 11/19/24 13:40 11/19/24 15:20 Temperature 97.3 F L 97.3 F L Temperature Source Oral Pulse Rate 63 63 Respiratory Rate 16 16 Blood Pressure 131/70 H 128/70 H Blood Pressure Mean 90 89 Pulse Ox 97 97 Oxygen Delivery Method Room Air [facility] <NORMAN Doherty - Last Filed: 11/19/24 17:00> [facility] Narrative Medical decision making narrative: Patient presenting today with concerns for DVT to the left lower extremity due to pain and swelling she has had over the past 2 days. She has a previous history of a DVT. We do not currently have ultrasound here at this time but D-dimer will be obtained and is elevated. She was medicated here with Lovenox. I have given her an outpatient prescription to come tomorrow to have a venous duplex ultrasound to definitively assess for DVT. She does not have chest pain or shortness of breath to indicate PE. She does not have any signs of infection on exam and is neurovascularly intact. Patient discharged home in stable condition. Lab Data Attestation: I reviewed the patient's lab results. Labs: Laboratory Results - last 24 hr 11/19/24 14:35 D-Dimer Quant (PE/DVT) 1.49 H* <Dr. Daniel Villarreal MD - Last Filed: 11/19/24 20:35> MDM MDM Narrative Medical decision making narrative: Patient presenting today with concerns for DVT to the left lower extremity due to pain and swelling she has had over the past 2 days. She has a previous history of a DVT. We do not currently have ultrasound here at this time but D-dimer will be obtained and is elevated. She was medicated here with Lovenox. I have given her an outpatient prescription to come tomorrow to have a venous duplex ultrasound to definitively assess for DVT. She does not have chest pain or shortness of breath to indicate PE. She does not have any signs of infection on exam and is neurovascularly intact. Patient discharged home in stable condition. Dr. Arreaga: I have personally performed a face to face assessment of the patient and have reviewed the LUCIE Note. I performed a substantive portion of the visit including all aspects of the following. My rubio findings include: History is remarkable for swelling pain left leg. She has history of prior DVT. She is presently on no anticoagulant. She is not certain whether she had trauma to the leg or not. She denies chest pain or increased shortness of breath from baseline. Exam is remarkable for swelling of the left leg pain along distribution deep venous system. There is no leg vein distention. There is no palpable cords. The left leg is swollen compared to the right. Medical Decision Making: Since venous duplex study is not available Wednesday evening D-dimer was obtained. Since patient has a positive D-dimer she was treated with 1.5 units/kg of Lovenox. Outpatient venous duplex study was ordered. Other additions or changes: [None] Lab Data Labs: Laboratory Results - last 24 hr 11/19/24 14:35 D-Dimer Quant (PE/DVT) 1.49 H* Discharge Plan Triage Chief Complaint: Lower Extremity Injury ED Midlevel Provider: Cami Pantoja ED Provider: Daniel Villarreal Dx/Rx/DC Orders Clinical Impression: Elevated d-dimer, Strain of left calf muscle, Pain and swelling of left lower extremity, Elevated blood pressure reading with diagnosis of hypertension Instructions: ED Muscle Strain, Extremity Prescriptions: No Action atorvastatin 20 MG tablet 20 mg PO QHS levothyroxine 75 MCG tablet 75 mcg PO DAILY sertraline 50 MG tablet 50 mg PO DAILY Patient Comments: budesonide-formoterol [Symbicort] 1 INHALER inhaler 2 puff inhalation BID Patient Comments: losartan 50 mg tablet 50 mg DAILY Patient Comments: Take 1 tablet by mouth daily alendronate 70 mg tablet 70 mg PO QWEEK Rx Instructions: every wednesday albuterol sulfate 90 mcg/actuation HFA aerosol inhaler 2 puff INHALATION Q4H PRN PRN (Reason: Shortness Of Breath) Patient Comments: Inhale 2 Puffs as instructed every 4 hours as needed for wheezing/shortness of breath. ondansetron 4 mg tablet,disintegrating 4 mg PO Q6H PRN (Reason: nausea and vomiting) Qty: 20 0RF Sore Throat and Cough 5-7.5 mg lozenge 1 gage PO Q4H PRN (Reason: sore throat) Qty: 18 0RF trazodone 100 mg Tablet 200 mg PO QHS PRN (Reason: Sleep) cefpodoxime 200 mg tablet 200 mg PO BID 6 Days Qty: 13 0RF Rx Instructions: must administer with a meal/food azithromycin 500 mg tablet 500 mg PO DAILY 2 Days Qty: 2 0RF Rx Instructions: start evening of 05/25 prednisone 20 mg tablet 40 mg PO DAILY 6 Days Qty: 12 0RF Other Ambulatory Orders: Venous Duplex US, Unilateral (Stat) Facility: [facility] - Location: [facility] Ordered By: Cami Pantoja Primary Care Provider: Jessica Lew Referrals: Jessica Lew DO [Primary Care Provider] - 5-7 Days Activity Restrictions/Additional Instructions: Please return tomorrow to have the venous duplex ultrasound performed to definitively rule out DVT. Print Language: Chinese Disposition Disposition: Home, Self Care Discharge Date/Time: 11/19/24 15:20
[2024-11-19 14:59] LABS: D-Dimer Quantitative (DVT/PE) 1.49 FEU/ug/m (0.27-0.49)
[2024-11-19] MEDS: Enoxaparin 80 MG/0.8 ML Syringe 95 MG SC (15:15)
[2024-11-19 15:20] VITALS: BP 128/70; PULSE 63; RESP 16; TEMP 36.3; O2SAT 97
== END 2024-11-19 15:20 | disposition home or self-care (01) ==
PROVIDERS: Physician Assistant; Emergency Provider Emergency Medicine; PCP Internal Medicine; Visit Provider Emergency Medicine
DX: S86.112A Strain of other muscle(s) and tendon(s) of posterior muscle group at lower leg level, left leg, initial encounter (principal); J44.9 Chronic obstructive pulmonary disease, unspecified; X58.XXXA Exposure to other specified factors, initial encounter; R79.1 Abnormal coagulation profile; I10 Essential (primary) hypertension; E78.5 Hyperlipidemia, unspecified; F41.9 Anxiety disorder, unspecified; F32.A Depression, unspecified; G47.33 Obstructive sleep apnea (adult) (pediatric); Z86.718 Personal history of other venous thrombosis and embolism; Z79.899 Other long term (current) drug therapy; Z87.891 Personal history of nicotine dependence
CPT/HCPCS: 85379; 96372; 99282; A4216

== ENCOUNTER → 2024-11-20 | Outpatient (CLI) | payer MEDICARE, SELFPAY ==
--- NOTE | 2024-11-20 11:25 | VDLE_ITS ---
Reason For Study Reason For Study: Elevated D-Dimer RIGHT LEFT CFV is compressible, spontaneous, phasic, competent GSV is normal. and demonstrates normal augmentation. CFV is compressible, spontaneous, phasic, competent, Procedure and demonstrates normal augmentation. This is a venous duplex using B-mode, color flow and FV is compressible, spontaneous, phasic, competent spectral Doppler. and demonstrates normal augmentation. Exam performed in department. POP V is compressible, spontaneous, phasic, competent A preliminary report was called and/or faxed to and demonstrates normal augmentation. Vipin. T/P Trunk is compressible. PTV is compressible. LT PerV is compressible. VL/Venous Duplex US, Unilateral Interpretation Summary Deep veins of the left lower extremity are patent and compressible segmentally. There is no evidence of left lower extremity deep vein thrombosis. Valvular competence appears intact within the p roximal deep venous system on the left . The left great saphenous vein appears patent and compressible segmentally. The right common femoral vein is patent and compressible . Ordering Physician: Cami Pantoja Referring Physician: Jessica Lew Performed By: Yumiko Portillo, DEVYN, RVT
== END | disposition home or self-care (01) ==
LOC: CVS 11:24
PROVIDERS: PCP Internal Medicine; Referring Provider Physician Assistant; Visit Provider Physician Assistant
DX: M79.605 Pain in left leg (principal)
CPT/HCPCS: 93971

== ENCOUNTER → 2025-01-30 | Outpatient (CLI) | payer MEDICARE, SELFPAY ==
[2025-01-30 12:30] LABS: AST(SGOT) 16 U/L (<=31); Alanine Aminotransfer ALT/SGPT 13 U/L (<=34); Albumin, Serum 4.2 g/dL (3.4-4.8); Alkaline Phosphatase 54 U/L (35-104); Anion Gap 9 (5-15); BUN 21 mg/dL (4-19); BUN/Creat Ratio 20.5 RATIO (10-20); Calcium,Total 10.4 mg/dL (7.6-11.0); Carbon Dioxide 25.6 mmol/L (21.0-32.0); Chloride 105 mmol/L (98-108); Globulin 2.8 g/dL (2.2-4.2); Glucose 103 mg/dL (70-99); Magnesium 2.1 mg/dL (1.5-2.2); Potassium 4.3 mmol/L (3.3-5.1)
[2025-01-30 12:41] LABS: PTHIN 143 pg/mL (11-61)
[2025-01-30 14:12] LABS: Vitamin D,25 Hydroxy 48.5 ng/mL (30-100)
== END | disposition home or self-care (01) ==
LOC: LAB 10:58
PROVIDERS: PCP Internal Medicine; Referring Provider Physician Assistant; Visit Provider Physician Assistant
DX: E21.0 Primary hyperparathyroidism (principal); E03.9 Hypothyroidism, unspecified; E55.9 Vitamin D deficiency, unspecified
CPT/HCPCS: 36415; 80053; 82306; 83735; 83970; 84443

== ENCOUNTER → 2025-03-21 | Outpatient (CLI) | payer MEDICARE, SELFPAY ==
--- NOTE | 2025-03-21 16:23 | RAD_ITS ---
PROCEDURE: ACUTE ABDOMEN INC CHEST 03/21/2025 REASON FOR EXAM: ABDOMINAL PAIN TECHNIQUE: Procedure Code: RADABDCA Modality: DX Procedure: ACUTE ABDOMEN INC CHEST COMPARISON: None FINDINGS: Hardware: None Heart: The heart size is normal. Lungs: The lungs are clear. Bowel gas: Air-fluid levels noted on the upright film consistent with ileus. Hyperdensity in the right lower quadrant likely represents ingested medication Free air: No free air Calcifications: No suspicious calcifications Bones: Mild degenerative bony changes Other: RAD/Acute Abdomen Inc Chest IMPRESSION: No acute pulmonary process Ileus Reading Location: [id number]
[2025-03-21 18:34] LABS: Hematocrit 37.1 % (37-47); Hemoglobin 12.3 g/dL (12.0-15.0); Immature Granulocytes Count 0.030 X10^3/uL (0.0-0.0); Mean Corp Hgb Conc 33.2 g/dL (32-36); Mean Corpuscular Volume 95.1 fL (81-99); Mean Platelet Vol. 10.1 fl (6.2-12.0); NRBC Flagged by Analyzer 0 % (0-5); Platelet Count 253 K/mm3 (150-450); RBC Distribution Width CV 12.8 % (11.6-14.6); RBC Distribution Width SD 44.7 fl (35.1-43.9); Red Blood Count 3.90 M/mm3 (4.2-5.4); White Blood Count 8.6 K/mm3 (4.4-11.0)
[2025-03-21 18:37] LABS: AST(SGOT) 18 U/L (<=31); Alanine Aminotransfer ALT/SGPT 16 U/L (<=34); Albumin, Serum 4.2 g/dL (3.4-4.8); Alkaline Phosphatase 58 U/L (35-104); Anion Gap 11 (5-15); BUN 17 mg/dL (4-19); BUN/Creat Ratio 16.4 RATIO (10-20); Calcium,Total 10.8 mg/dL (7.6-11.0); Carbon Dioxide 25.5 mmol/L (21.0-32.0); Chloride 102 mmol/L (98-108); Globulin 3.3 g/dL (2.2-4.2); Glucose 110 mg/dL (70-99); Potassium 4.3 mmol/L (3.3-5.1)
[2025-03-21 20:06] LABS: Amylase 94 U/L (28-100); CRP 65.20 mg/L (0.0-3.0); Lipase 28 U/L (13-75)
== END | disposition home or self-care (01) ==
LOC: MTLAB 16:18
PROVIDERS: PCP Internal Medicine; Referring Provider Internal Medicine; Visit Provider Internal Medicine
DX: R10.9 Unspecified abdominal pain (principal)
CPT/HCPCS: 36415; 74022; 80053; 82150; 83690; 85025; 85652; 86140

== ENCOUNTER → 2025-03-30 | Outpatient (CLI) | payer MEDICARE, SELFPAY ==
--- NOTE | 2025-03-30 13:08 | RAD_ITS ---
PROCEDURE: RAD/Acute Abdomen Inc Chest
== END | disposition home or self-care (01) ==
LOC: MTRAD 13:08
PROVIDERS: PCP Internal Medicine; Referring Provider Internal Medicine; Visit Provider Internal Medicine
DX: K56.7 Ileus, unspecified (principal)
CPT/HCPCS: 74022